=== PATIENT | female | born 1955 | race Caucasian/White ===

== ENCOUNTER 2017-02-17 14:42 | Inpatient (IN) | payer BC, OTHER ==
[~2017-02-17] VITALS: Ht 154.9 cm; Wt 65.3 kg
[2017-02-17] MEDS ORDERED: SENNA W/DOCUSATE (SENOKOT S) TABLET PO PRN (17:15)
[2017-02-17] MEDS ORDERED: ACETAMINOPHEN 325 MG TABLET/CAPLET (TYLENOL) PO PRN (17:15)
[2017-02-17] MEDS ORDERED: oxyCODONE 5 MG/5 ML ORAL SOLN (roxiCODONE) 5 ML UDC PO PRN (17:15)
--- OUTSIDE RECORDS SUMMARY | 2017-02-17 18:01 | XMS REPORT ---
Author Froy Amanda [facility] Address [address] [place], [place] [id number] Care Team Providers Care Stoker Erector Name Role Phone Froy Solroio PCP Unavailable Allergies and Adverse Reactions Name Reaction Notes Morphine Sulfate N & V Plan of Treatment Not available. Medications Active Name Start Date Estimated Completion Date SIG Comments atenolol lovastatin Name Start Date Expiration Date SIG Comments Fish Oil 1,000 mg oral capsule 06/20/2009 01/16/2010 take 4 capsules by oral route daily for 30 days ibuprofen 800 mg oral tablet 06/20/2009 12/17/2009 take 1 tablet by oral route 3 times a day for 30 days with food Problem List Description Status Onset Hyperlipidemia Active Hypertension Active Vital Signs Date Time BP-Sys(mm[Hg] BP-Yarely(mm[Hg]) HR(bpm) RR(rpm) Temp WT HT HC BMI BSA BMI Percentile O2 Sat(%) 01/21/2016 1:58:00 PM 146 mmHg 96 mmHg 80 bpm 20 rpm 95.4 F 183 lbs 60 in 35.74 kg/m2 1.87 m2 96 % 06/20/2009 4:14:00 PM 130 mmHg 80 mmHg 72 bpm 20 rpm 167 lbs Social History Name Description Comments Tobacco Never smoker History of Procedures Date Ordered Description Order Status 01/21/2016 12:00 AM COMPLETE CBC W/AUTO DIFF WBC Returned 01/21/2016 12:00 AM COMPREHEN METABOLIC PANEL Returned 01/21/2016 12:00 AM IMMUNOASSAY QUANT NOS NONAB Returned 01/21/2016 12:00 AM [facility] Crohn's Prognostic test Returned 01/21/2016 12:00 AM [facility] Crohn's Prognostic test Returned 01/21/2016 12:00 AM [facility] Crohn's Prognostic test Returned 01/21/2016 12:[address] ABD & PELV W/CONTRAST Returned 06/20/2009 12:00 AM OSTEOPATH MANJ 1-2 REGIONS Reviewed 06/20/2009 12:00 AM OSTEOPATH MANJ 1-2 REGIONS Reviewed 06/20/2009 12:00 AM LIPID PANEL Reviewed 08/21/2009 12:00 AM ROUTINE VENIPUNCTURE Reviewed 08/21/2009 12:00 AM LIPID PANEL Reviewed Results Summary Data and Description Results 06/21/2009 9:25 AM TRIGLYCERIDES 107.0 mg/dLCHOLESTEROL 248.0 mg/dLHDL 45.0 mg/ dLTOT CHOL/HDL 5.5 LDL (CALC) 182.0 mg/dL 01/21/2016 3:05 PM WBC 8.5 RBC 4.98 HGB 15.20 g/dLHCT 45.40 %MCV 91.0 fLMCH 30.50 pgMCHC 33.50 g/dLRDW SD 41 RDW CV 12.30 %MPV 8.70 fLPLT 315 NRBC# 0.00 NRBC% 0.0 %NEUT 70.10 %%LYMP 20.10 %%MONO 7.30 %%EOS 1.30 %%BASO 0.70 %#NEUT 5.98 #LYMP 1.71 #MONO 0.62 #EOS 0.11 #BASO 0.06 MANUAL DIFF NOT IND GLUCOSE 95.0 mg/dLSODIUM 141.0 mmol/LPOTASSIUM 4.10 mmol/LCHLORIDE 103.0 mmol/LCO2 27.0 mmol/LBUN 19.0 mg/dLCREATININE 0.70 mg/dLSGOT/AST 16.0 IU/LSGPT/ALT 19.0 IU/ LALK PHOS 58.0 IU/LTOTAL PROTEIN 7.20 g/dLALBUMIN 4.70 g/dLTOTAL BILI 1.50 mg/ dLCALCIUM 10.20 mg/dLAGE 60 GFR NonAA 85 GFR AA 103 eGFR >60 mL/min/1.73meGFR AA* >60 History Of Immunizations Not available. History of Past Illness Name Date of Onset Comments Hyperlipidemia Hyperlipidemia Jun 20 2009 4:16PM Low Back Pain Jun 20 2009 4:16PM Lumbar Somatic Dysfunction Jun 20 2009 4:16PM Thoracic Somatic Dysfunction Jun 20 2009 4:16PM Thoracic Somatic Dysfunction Jun 20 2009 9:48PM Lumbar Somatic Dysfunction Jun 20 2009 9:48PM Thoracic or Lumbosacral Radiculopathy Jun 20 2009 9:48PM Hyperlipidemia Jun 21 2009 9:21AM Hyperlipidemia Jun 21 2009 12:13PM Hypertension Rectal bleeding Jan 21 2016 1:59PM Diarrhea Jan 21 2016 1:59PM Abdominal pain Jan 21 2016 1:59PM Malaise and fatigue Jan 21 2016 1:59PM Other malaise Jan 21 2016 1:59PM Other fatigue Jan 21 2016 1:59PM Colon Cancer Screening Jan 21 2016 1:59PM Payers Insurance Name Company Name Plan Name Plan Number Policy Number Policy Group Number Start Date BCBS [facility] [id number] Friday, 2008 History of Encounters Visit Date Visit Type Provider 01/21/2016 Office visit Froy Solorio MD 06/20/2009 Office visit Ralph Sorto DO
--- OUTSIDE RECORDS SUMMARY | 2017-02-17 18:01 | XMS REPORT | CCD ---
Author Author ALFRED DAVID Unknown Address [address] [place] [address] Care Team Providers Care Senior Mortgage Loan Processor Name Role Phone KANE CAMPOS, YUE Lerma Attphys Allergies Allergy Code Allergy Type Reaction Status MORPHINE 7052 Drug allergy N/V Active Active Medications No Active Medications Problems Unknown or Not Available. Procedures Procedure Code Procedure Type Date Esophagogastroduodenoscopy, flexible, transoral; [place] [address] CPT 02/01/2016 Colorectal cancer screening; colonoscopy on individual not meeting criteri G0121 CPT 02/01/2016 PATHOLOGY ORDER [id number] SNOMED CT 02/01/2016 Results Unknown or Not Available. Function Status Unknown or Not Available. History of Immunizations Unknown or Not Available. Plan of Treatment Unknown or Not Available. Social History Smoking Status Code Start Date End Date Never smoker [id number] Vital Signs Vital Sign Value Unit Date/Time Recent/Initial? Weight Measured 180 [lb_av] 01/31/2016 14:42 Initial VS Height 61 [in_i] 01/31/2016 14:42 Initial VS BMI (Body Mass Index) 34.01 kg/m2 01/31/2016 14:42 Initial VS BSA (Body Surface Area) 1.87 m2 01/31/2016 14:42 Initial VS Function Status Unknown or Not Available. Goals Unknown or Not Available. ASSESSMENTS Unknown or Not Available. Health Concerns Section Unknown or Not Available.
--- OUTSIDE RECORDS SUMMARY | 2017-02-17 18:02 | XMS REPORT | Continuity of Care Document ---
Author Author [facility] Organization [facility] Address Unknown Phone Unavailable Allergies Medications Problems Procedures Results Encounters ACCT No. Visit Date/Time Discharge Status Pt. Type Provider Facility Loc./Unit Complaint [id number] 01/12/2017 09:37:04 01/12/2017 23: 59:59 CLS Outpatient Joaquin Elliott [id number] 12/30/2016 15:31:53 12/30/2016 23: 59:59 CLS Outpatient Orion Clarke [id number] 12/19/2016 16:39:39 12/19/2016 23: 59:59 CLS Outpatient Joaquin Elliott [id number] 02/11/2016 14:40:38 02/11/2016 23: 59:59 CLS Outpatient Froy Solorio [id number] 02/06/2016 13:30:37 02/06/2016 23: 59:59 [facility] Outpatient Froy Solorio [id number] 01/21/2016 14:47:17 01/21/2016 23: 59:59 [facility] Outpatient Froy Solorio
--- OUTSIDE RECORDS SUMMARY | 2017-02-17 18:02 | XMS REPORT ---
Author Froy Amanda [facility] Address [address] [place], [place] [address] Care Team Providers Care Face Hardener Name Role Phone Froy Solorio PCP Unavailable Allergies and Adverse Reactions Name Reaction Notes Morphine Sulfate N & V Plan of Treatment Not available. Medications Active Name Start Date Estimated Completion Date SIG Comments atenolol lovastatin dicyclomine 10 mg oral capsule 02/11/2016 03/12/2016 take 1 capsule by oral route 4 times a day (before meals and at bedtime) for 15 days Name Start Date Expiration Date SIG Comments [...] Colon Cancer Screening Jan 21 2016 1:59PM Acquired diverticulosis of colon Feb 11 2016 2:24PM Chronic hypertrophic gastritis Feb 11 2016 2:24PM Internal hemorrhoid Feb 11 2016 2:24PM Irritable bowel syndrome Feb 11 2016 2:24PM Payers Insurance Name Company Name Plan Name Plan Number Policy Number Policy Group Number [facility] Date [id number] Friday, 2008 History of Encounters Visit Date Visit Type Provider 02/11/2016 Office visit Froy Solorio MD 02/01/2016 [facility] Froy Solorio MD 01/21/2016 Office visit Froy Solorio MD 06/20/2009 Office visit Ralph Sorto DO
[2017-02-17 18:06] VITALS: BP 113/78
[2017-02-17] MEDS ORDERED: INFLUENZA TRIvalent 2017-2018 0.5 ML/45 MCG SYR IM ONE (19:00)
[2017-02-17] MEDS ORDERED: ATORVASTATIN 80 MG (LIPITOR) TABLET PO SCH (21:00)
[2017-02-17] MEDS ORDERED: LEVETIRACETAM 1,000 MG (KEPPRA) TABLET PO SCH (21:00)
--- NOTE | 2017-02-17 21:04 | HISTORY AND PHYSICAL ---
DATE OF SERVICE: 02/17/2017 CHIEF COMPLAINT: Difficulty with walking. HISTORY OF PRESENT ILLNESS: The patient is a 61-year-old female who had been independent and working, living with her spouse in [place], [place], who had problems with her balance beginning in late October of this year.She had recently been using a walker prior to surgery due to impaired balance. She experienced a fall on 11/28/2016 and was admitted to an outside facility at that time for altered medical status. She was hospitalized for 2 weeks for encephalitis for which an etiology was never found, which was presumed to be viral. She was discharged to inpatient rehab for continued right-sided weakness and was at that time cognitively intact. The day prior to discharge from inpatient rehabilitation unit, she experienced a fall and was found to be acutely confused, transferred to [facility] where she became febrile and remained confused. She subsequently was discharged to [facility] in [place], [place], and was eventually discharged to home with orders for outpatient therapy. She had another fall at home and became acutely confused. Speech was impaired. She was evaluated in the emergency room. CT demonstrated left temporal lobe edema with midline shift. She was transferred to [facility] on the evening of 01/29/2017 for further evaluation and treatment. Upon further evaluation there, she was found to have a glioblastoma multiforme and she underwent craniotomy for tumor resection on 02/03/2017. The patient had a video swallow study on 02/09/2017, demonstrating mild amount of dysphagia. Full liquid diet with nectar thickened liquids was initiated. Neurosurgery recommended nocturnal feeds to meet 100% of nutritional needs. She has a PEG tube in place. Currently, she complains of weakness in her legs and is dependent for transfers. She does have volitional movement, however, in all 4 limbs and cognitively appears grossly intact. She is able to follow simple commands and carry on a simple conversation. Her speech is articulate. She presents to the unit for ongoing therapy at [facility]. The oncologists from [facility] discussed treatment option as a plan with oncologists at [facility] in [place]. It is believed that the patient will require radiation treatment and Dr. Varela, Radiation Oncology, has been consulted. PAST MEDICAL HISTORY: Hypertension, hyperlipidemia, GERD without esophagitis, chronic constipation, encephalitis of unknown etiology, presumed to be viral, vitamin B12 deficiency, vitamin D deficiency. PAST SURGICAL HISTORY: Craniotomy as per above, hysterectomy. ALLERGIES: MORPHINE. FAMILY HISTORY: Noncontributory. 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 REVIEW OF SYSTEMS: Ten-point review of systems significant for swallow disorder and weakness in her legs, difficulty with her balance. MEDICATIONS: Vitamin D2 50,000 units p.o. every Thursday, amlodipine 5 mg p.o. daily, atenolol 50 mg p.o. daily, Pepcid 20 mg p.o. daily instead of Zantac, Rocephin 1 g tomorrow, then discontinue IV, Protonix 40 mg p.o. daily, vitamin B12 50,000 mcg sublingual under tongue, subcutaneous heparin 5000 units q.8 hours for DVT prophylaxis, Decadron 2 mg p.o. b.i.d., Keppra 1000 mg p.o. b.i.d., Lipitor 80 mg p.o. at bedtime, oxycodone 5 mg p.o. q.4 hours p.r.n. severe pain, Senokot-S 1 tablet p.o. b.i.d. p.r.n. constipation, Tylenol 650 mg p.o. q.4 hours p.r.n. mild pain. 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 PHYSICAL EXAMINATION: GENERAL: Significant for a pleasant female, appearing her stated age, alert and oriented, in no acute distress. VITAL SIGNS: Pulse of 78, respirations 18, blood pressure 113/78, O2 sat 96%. HEENT: Vision, speech, hearing grossly intact. No oral lesions noted. She is on a modified diet for dysphagia. Her craniotomy incision site is healing well, no drainage noted. NECK: Supple, without mass. HEART: Regular rhythm. LUNGS: Clear. ABDOMEN: Soft, nontender. Bowel sounds present. EXTREMITIES: No lower leg edema, no calf tenderness. MUSCULOSKELETAL: The patient has functional active range of motion in all 4 extremities. NEUROLOGIC: She has 3/5 strength RUE and 3+/5 strength LUE. Sensation is grossly intact to touch. Cognition appears grossly intact.She has generalized weakness in both lower limbs IMPRESSION: 1. Ambulatory dysfunction secondary to glioblastoma multiforme left temporal lobe, status post craniotomy for tumor resection on 02/03/2017 at [facility].associated with left sided weakness 2. Hypertension, controlled with medication. 3. Dysphagia, on modified diet. 4. History of encephalitis. 5. Hyperlipidemia. 6. Gastroesophageal reflux disease, on medication. 7. Chronic constipation, on medication. 8. Vitamin B12 deficiency, on medication. 9. Vitamin D deficiency, on supplement. 10. Seizure prophylaxis, on Keppra. 11. Deep venous thrombosis prophylaxis, on heparin subcutaneously. PLAN: The patient will have a comprehensive program of inpatient rehabilitation with goal of maximizing level of functional independence prior to discharge home with spouse. The patient will have PT, OT 90 minutes per day each discipline, 5 days a week for gait strengthening, conditioning, balance, ADLs, any patient family caregiver training, nurse and adaptive equipment and training as necessary. Therapy with PT, OT to be less when the patient being seen by speech therapy 5 days a week for 30 to 45 minutes per day for cognition, speech and particularly swallow disorder for 2 to 3 weeks. Rehabilitation nursing to assist with bowel, bladder, skin, wound care, medication administration, pain management, tube feed administration. Continue with modified diet and tube feeds at night. Case discussed with staff nursing care. No handoff was provided to me by physician. I assume they discussed case with Dr. Varela, our radiation oncologist. Consult Dr. Coombs to assist with postop medical management as this patient is home out of town. Her PCP is Dr. Sorto in [place], [place]. Check labs in a.m. Therapy with cardiac, fall and seizure precautions.Consult Dr Jeffery Rad oncology for follow-up postop care DIET: Mechanically altered, thickened liquids. CODE STATUS: [facility] indicates the patient is no CPR, but may intubate in case of respiratory failure. ESTIMATED LENGTH OF STAY: Three weeks. PROGNOSIS: Rehab prognosis appears good for goals of discharging home with spouse, modified independent to supervision for ADLs and mobility skills. Long-term prognosis appears somewhat guarded. I am sure that physicians and radiation oncologist here will follow up regarding that with the patient and spouse. Job ID: [id number] DocumentID: [id number] Dictated Date: 02/17/2017 19:11:01 Geomagnetician Date: 02/17/2017 21:03:29 Dictated By: JULIANA AGUIAR MD MTDD
[2017-02-17] MEDS: DEXAMETHASONE 4 MG TAB (DECADRON) PO SCH (21:56)
[2017-02-18 05:47] LABS: BASOPHILS % (AUTO) 0 % (0-10); EOSINOPHILS % (AUTO) 0 % (0-10); LYMPHOCYTES # (AUTO) 0.8 X 10^3 (1.0-4.0); LYMPHOCYTES % (AUTO) 7 % (12-44); MEAN CORPUSCULAR HEMOGLOBIN 33 PG (25-34); MEAN CORPUSCULAR HGB CONC 34 G/DL (32-36); MEAN CORPUSCULAR VOLUME 98 FL (80-99); MEAN PLATELET VOLUME 9.1 FL (7.4-10.4); MONOCYTES # (AUTO) 0.4 X 10^3 (0.0-1.0); MONOCYTES % (AUTO) 3 % (0-12); NEUTROPHILS # (AUTO) 10.1 X 10^3 (1.8-7.8); NEUTROPHILS % (AUTO) 90 % (42-75); PLATELET COUNT 259 10^3/uL (130-400); RED CELL DISTRIBUTION WIDTH 14.3 % (10.0-14.5); WHITE BLOOD COUNT 11.2 10^3/uL (4.3-11.0)
[2017-02-18 06:14] LABS: ALANINE AMINOTRANSFERASE 78 U/L (0-55); ALBUMIN 3.7 GM/DL (3.2-4.5); ANION GAP 13 MMOL/L (5-14); ASPARTATE AMINO TRANSFERASE 21 U/L (5-34); BILIRUBIN,TOTAL 1.8 MG/DL (0.1-1.0); BLOOD UREA NITROGEN 31 MG/DL (7-18); BUN/CREATININE RATIO 57; CALCIUM 9.4 MG/DL (8.5-10.1); CARBON DIOXIDE 23 MMOL/L (21-32); CHLORIDE 97 MMOL/L (98-107); CREATININE SERUM 0.54 MG/DL (0.60-1.30); GFR ESTIMATED > 60; GLUCOSE 186 MG/DL (70-105); POTASSIUM 3.8 MMOL/L (3.6-5.0); SODIUM 133 MMOL/L (135-145); TOTAL PROTEIN 6.2 GM/DL (6.4-8.2)
[2017-02-18] MEDS ORDERED: PANTOPRAZOLE 40 MG (PROTONIX) TAB PO SCH (07:00)
[2017-02-18] MEDS ORDERED: CYANOCOBALAMIN 500 MCG TAB (VITAMIN B-12) PO SCH (07:00)
[2017-02-18 08:00] VITALS: BP 106/70
[2017-02-18] MEDS ORDERED: cefTRIAXone INJECTION 1,000 MG in NS (IVPB) 50 ML IV ONE (08:00)
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
--- NOTE | 2017-02-18 08:32 | PM&R Post Admission Assessment ---
Post Admission Physician Asses The preadmission screen agrees with the post admission assessment that the patient is a good candidate for inpatient rehabilitation. The patient will have a comprehensive program of inpatient rehabilitation with a goal of maximizing level of functional independence prior to discharge home with spouse. The patient will have PT/OT ninety minutes per day, each discipline, five days a week for gait, strengthening, conditioning, balance, ADLs, any patient/family/caregiver training as necessary. Speech therapy to do cognitive, speech and swallow assessment and treat as indicated 5 times a week for 30-45 monutes a day for 2 weeks. Rehabilitation nursing to assist with bowel , bladder, skin, wound care, medication administration, pain management. Confidential Secretary to assist with discharge planning, community reentry. SCD's for DVT prophylaxis. She appears to be well motivated to participate in three hours of therapy a day. She should be able to tolerate three hours of therapy a day from a medical and surgical standpoint. She should benefit from the three hours of therapy a day. She has a reasonable discharge plan, reasonable discharge rehabilitation goals and a supportive family. She has various comorbidities that need to be closely monitored with medications and treatments adjusted on a daily basis as needed. These include: HTN GERD Seizure prophylaxis Chronic constipation Barriers to discharge for this patient who had been independent prior to this are for her to be modified independent to supervision for ADLs and mobility skills prior to discharge home with spouse, so as to lessen the burden of the caregivers. Risks for this patient include: 1. Fall 2. Fracture 3. DVT 4. Pulmonary embolism 5. Wound infection 6. Skin breakdown 7. Contractures 8. Poorly controlled pain 9. Urinary retention 10. UTI 11. Respiratory infection 12. Aspiration 13. Seizures 14. Poorly controlled HTN 15. Recurrent tumor 16. Recurrent encephalitis Estimated Length of Stay: 21 days Prognosis: Rehab prognosis appears good ( Short-term) for goal of discharge home with spouse modified independent to supervision for ADLs and mobility skills.The p[atient is see Radiation Oncologist while here for f/u treatment- Will follow-up re that. JULIANA AGUIAR MD Feb 18, 2017 08:32
[2017-02-18] MEDS ORDERED: FAMOTIDINE 20 MG (PEPCID) TABLET PO SCH (09:00)
[2017-02-18] MEDS ORDERED: amLODIPine 5 MG (NORVASC) TAB PO SCH (09:00)
[2017-02-18] MEDS ORDERED: ATENOLOL 50 MG (TENORMIN) TAB PO SCH (09:00)
[2017-02-18] MEDS: DEXAMETHASONE 4 MG TAB (DECADRON) PO SCH (09:13)
[2017-02-18] MEDS ORDERED: LIDOCAINE 1% INJ 20 ML (XYLOCAINE) VIAL INJ NR (10:00)
[2017-02-18] MEDS ORDERED: cefTRIAXone 1 GM (ROCEPHIN) VIAL IM NR (10:00)
[2017-02-18] MEDS: LEVETIRACETAM 500 MG/ 5 ML UDC ORAL SOLN (KEPPRA) PEG SCH ×2 (10:08→20:31)
--- NOTE | 2017-02-18 10:26 | Physical Therapy Evaluation ---
PT Evaluation-General Medical Diagnosis Admission Date Feb 17, 2017 at 17:59 Medical Diagnosis: Craniomoty, Bilateral weakness, Falls Onset Date: Feb 03, 2017 Therapy Diagnosis Therapy Diagnosis: bilateral weakness, impaired mobility, endurance, balance Height/Weight Height (Feet): 5 Height (Inches): 1.00 Weight (Pounds): 142 Weight (Ounces): 8.0 Precautions Precautions/Isolations: Aspiration, Fall Prevention, Standard Precautions Weight Bear Status Right Lower Extremity: Right Weight Bearing/Tolerated Left Lower Extremity: Left Weight Bearing/Tolerated Referral Physician: West Reason for Referral: Evaluation/Treatment Medical History Pertinent Medical History: GERD, HTN Additional Medical History hyperlipidemia, chronic constipation, Vitamin deficiency, encephalitis Reviewed History: Yes Social History Home: Multilevel Current Living Status: Spouse Entry Into Home: Stairs Without Railing PT Steps Into Home: 3 Prior/Core FIM Prior Level of Function Functional [place] Measure 0=Not Assessed/NA 4=Minimal Assistance 1=Total Assistance 5=Supervision or Setup 2=Maximal Assistance 6=Modified [place] 3=Moderate Assistance 7=Complete [place] Bed Mobility: 7 Transfers (B,C,W/C) (FIM): 7 Gait: 6 Locomotion: 6 Patient ambulates with FWW before craniotomy due to balance issues PT Evaluation-Current Subjective Patient is alert in bed upon PT entering the room. She states that her legs have been feeling weak, but she is very responsive and willing to agree to PT. Patient is able to communicate with PT and perform tasks asked of her. She expresses concern over falling and feeling unsteady. She frequently apologizes if she cannot perform something she or PT asks her to perform. Pain Numeric Pain Scale: 0-No Pain Location: No Pain Reported Comment: States her head starts to hurt sometime during the day Pt/Family Goals Patient wishes to improve strength and improve stability while returning to home. Objective Patient Orientation: Person, Place, Time, Situation ROM/Strength ROM Upper Extremities PROM WNL ROM Lower Extremities PROM WNL Strength Upper Extremities Bilateral weakness noted. Patient appears to have greater strength grossly on L side. Strenght Lower Extremities Bilateral weakness. Patient is able to bear weight through both extremities as well as flex hip and knee against gravity while standing. Integumentary/Posture Integumentary intact; tube in superior abdominal cavity Bowel Incontinence: Yes Bladder Incontinence: Yes Posture Sitting posture deviates to right side due to weakness on that side. Neuromuscular (Tone, Coordination, Reflexes) Decreased tone on the right LE and impaired coordination. Sensory Vision: Functional Hearing: Functional Sensation Up. Extremities NA Sensation Lower Extremities NA Transfers Functional [place] Measure 0=Not Assessed/NA 4=Minimal Assistance 1=Total Assistance 5=Supervision or Setup 2=Maximal Assistance 6=Modified [place] 3=Moderate Assistance 7=Complete IndependenceIRFPAI Quality Coding Scale 6 Independent with activity with or without an assistive device 5 Patient requires set up or clean up by helper. Patient completes activity by themselves 4 Supervision or touching assist (CGA). [place] provide cues , steadying assist 3 The helper provides less than half the effort to complete the activity 2 The helper provides more than half the effort to complete the activity 1 Dependent. The helper does all the effort to complete an activity 7 Patient refused to complete or attempt activity 9 The patient did not perform the activity before the current illness or injury 88 Not attempted due to Medical conditions or safety concerns Transfers (B, C, W/C) (FIM): 2 Scootin Rollin Roll Left to Right (QC): 4 Supine to/from Sit: 4 Sit to/from Stand: 2 bed t/f WC(FIM only if WC use): 2 Sit to Lying (QC): 3 Lying to Sitting/Side of Bed(Q: 3 Sit to Stand (QC): 2 Chair/Cqo-qc-Gydbi Xfer(QC): 2 Car Transfer (QC): 88 Gait Does the Patient Walk?: No and Walking Goal IS indicated Comments/Gait Description Patient stood in the parallel bars and attempted to take some steps but her knees gave out and needed assist from therapist to keep from falling. Wheelchair Training Does the Pt Use a Wheelchair?: Yes Wheelchair (FIM): 2 Wheelchair Distance (FIM): 1=714-31 ft Distance: 50' Wheelchair Level of Assist: 3 Wheel 50 ft with 2 turns (QC): 2 Type of Wheelchair: Manual Patient is able to slowly ambulate the W/C with LEs and L UE. W/C deviates right due to weakness of R UE. Patient is unable to perform turns on this date. Stairs If not tested on admit;explain Patient is unable to ambulate yet. Balance Sitting Static: Fair Sitting Dynamic: Poor Standing Static: Poor Standing Dynamic: Poor Treatment PT performed sit to stand transfers as well as attempted walking and weight shifts in parallel bars. Assessment/Needs Patient is suffering from bilateral weakness due to recent craniotomy and inactivity. Patient seems motivated to improve and is very willing to adhere to PT. PT will perform WB activities, education, and therapeutic exercise in order to promote musculare strength and endurance. Rehab Potential: Fair PT Short Term Goals Short Term Goals Time Frame: Feb 25, 2017 Transfers (B,C,W/C) (FIM): 3 Gait (FIM): 1 Gait Distance Comment: 10' Gait Level of Assist: 3 Gait Assistive Device: Parallel Bars Wheelchair (FIM): 2 Wheelchair Distance: 50' Wheelchair Level of Assist: 4 PT Photogrammetrist Goals Residential Goals PT Photogrammetrist Goals Time Frame: Mar 11, 2017 Transfers (B,C,W/C) (FIM): 4 Sit to Lying (QC): 4 Lying-Sitting on Side/Bed(QC): 4 Sit to Stand (QC): 3 Rollin Roll Left to Right (QC): 4 Chair/Lan-fn-Jyxmz Xfer(QC): 3 Car Transfer (QC): 3 Does the Patient Walk: No and Walking Goal IS indicated Gait (FIM): 1 Distance: 20' Walk 10 feet (QC): 3 Gait Level of Assist: 4 Gait Assistive Device: FWW Does the Pt use WC or Scooter?: Yes Wheelchair (FIM): 4 Distance: 150' Wheelchair Level of Assist: 4 Wheel 50 feet with 2 turns (QC: 3 Stairs (FIM): 1 # of Steps: 1 1 Step (curb) (QC): 3 4 Steps (QC): 88 12 Steps (QC): 88 Stairs Level Of Assist: 4 Picking up an Object (QC): 88 PT Plan Problem List Problem List: Activity Tolerance, Functional Strength, Safety, Balance, Gait, Transfer, Bed Mobility, ROM Treatment/Plan Treatment Plan: Continue Plan of Care Treatment Plan: Bed Mobility, Concurrent Therapy, Education, Functional Activity Alicia, Functional Strength, Group Therapy, Gait, Safety, Therapeutic Exercise, Transfers Treatment Duration: Mar 11, 2017 Frequency: At least 5 of 7 days/Wk (IRF) Estimated Hrs Per Day: 1.5 hours per day Patient and/or Family Agrees t: Yes Safety Risks/Education Patient Education: Gait Training, Transfer Techniques, Reviewed Precautions, Correct Positioning, W/C Management, Safety Issues Teaching Recipient: Patient Teaching Methods: Demonstration, Discussion Response to Teaching: Verbalize Understanding, Return Demonstration, Reinforcement Needed Discharge Recommendations Plan Patient will perform bed mobility and transfer training, balance and endurance training, functional strengthening, stair training, gait training, and education , to improve functional mobility and independence at home. Therapy D/C Recommendations: Home w/ Family Support, Alf (TCU/NH) Equpiment Recommendations-D/C: Front Wheeled Walker, Manual Wheelchair Time/GCodes Time In: 901 Time Out: 1001 Total Billed Treatment Time: 60 Total Billed Treatment 1 visit EVHigh 30 min [facility] 10 mi FA 20 min NGUYEN HUITRON PT Feb 18, 2017 10:26
[2017-02-18] MEDS ORDERED: PANT40TA3 PO (11:24)
[2017-02-18] MEDS ORDERED: ERGO50006 PO (11:24)
[2017-02-18] MEDS ORDERED: CYAN5000 SL (11:24)
[2017-02-18] MEDS ORDERED: ACET325T38 PO (11:24)
[2017-02-18] MEDS ORDERED: RANI150T11 PO (11:24)
[2017-02-18] MEDS ORDERED: ATEN50TA PO (11:24)
[2017-02-18] MEDS ORDERED: ATOR80TA76 PO (11:24)
[2017-02-18] MEDS ORDERED: AMLO5TAB2 PO (11:24)
--- NOTE | 2017-02-18 13:18 | Occupational Therapy Eval ---
OT Evaluation-General/PLF Medical Diagnosis Admission Date Feb 17, 2017 at 17:59 Medical Diagnosis: Craniomoty, Bilateral weakness, Falls Onset Date: Feb 03, 2017 Therapy Diagnosis Therapy Diagnosis: Decreased ADL skills Height/Weight Height (Feet): 5 Height (Inches): 1.00 Weight (Pounds): 142 Weight (Ounces): 8.0 Precautions Precautions/Isolations: Aspiration, Fall Prevention, Standard Precautions Safety Interventions: Bed Exit Alarm Weight Bear Status Weight Bearing Restriction: Weight Bearing/Tolerated Referral Physician: West Referral Reason: Activity Tolerance, Self Care, Evaluation/Treatment, Strengthening/ROM Medical History Pertinent Medical History: GERD, HTN Additional Medical History Vit B12 deficiency, Vit D deficiency Current History Pt. began having falls. Required several hospital stays. Glioblastoma multiforme found. Pt. underwent a craniotomy for tumor resection 02-03-17. Pt found to have encephalitis. Reviewed History: Yes Social History Home: Multilevel Current Living Status: Spouse Entry Into Home: Stairs Without Railing Steps Into Home: 3 ADL-Prior Level of Function ADL PLOF Comments Pt. was independent with daily tasks and basic self care skills. Pt. was working but states that she had to retire in July. DME/Equipment: Bath Chair, Tub/Shower DME/Equipment Comments Pt. states that she has a wheelchair and a walker. 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 OT Current Status Subjective Pt. does not report pain but reports that she is very tired. Appearance Pt. up in wheelchair. Agrees to work with OT. Mental Status/Objective Patient Orientation: Person Attachments: PEG Tube Current Glasses/Contacts: Yes Hand Dominance: Right Upper Extremity ROM WFL bilateral UE Upper Extremity Strength Right UE- 3/5 Left UE- 3+/5 throughout ADL-Treatment Functional [place] Measure 0=Not Assessed/NA 4=Minimal Assistance 1=Total Assistance 5=Supervision or Setup 2=Maximal Assistance 6=Modified [place] 3=Moderate Assistance 7=Complete IndependenceIRFPAI Quality Coding Scale 6 Independent with activity with or without an assistive device 5 Patient requires set up or clean up by helper. Patient completes activity by themselves 4 Supervision or touching assist (CGA). [place] provide cues , steadying assist 3 The helper provides less than half the effort to complete the activity 2 The helper provides more than half the effort to complete the activity 1 Dependent. The helper does all the effort to complete an activity 7 Patient refused to complete or attempt activity 9 The patient did not perform the activity before the current illness or injury 88 Not attempted due to Medical conditions or safety concerns Grooming (FIM): 4 (Pt. is able to brush teeth with SBA, but required mod assist to brush hair due to stitches.) Oral Hygiene (QC): 5 Bathing (FIM): 3 (Pt. is able to wash UE and chest, but requires cues to do this thoroughly. Max assist to wash sanjuana area and LE.) Shower/Bathe Self (QC): 2 Lower Body Dressing (FIM): 1 (Dependent to don shorts, brief, and socks. No other street clothing available.) Lower Body Dressing (QC): 1 On/Off Footwear (QC): 1 Transfers (B, C, W/C) (FIM): 2 (Mod assist to stand. Pt. fatigues easily. Max assist to transfer to bed. Pt. was max assist to lay down and position self.) Other Treatments After pt. was in bed, she participated in series of problem solving and naming activities. Pt. did relatively well with these tasks. Able to group and name items appropriately, and to problem solve what to do in certain situations. All needs met in room. Education OT Patient Education: Correct positioning, Modified ADL techniques, Progress toward Goal/Update tx plan, Purpose of tx/functional activities, Reviewed precautions, Rehab process, Safety issues, Transfer techniques, Use of adapted equipment Teaching Recipient: Patient Teaching Methods: Demonstration, Discussion Response to Teaching: Verbalize Understanding, Return Demonstration OT Short Term Goals Short Term Goals Time Frame: Mar 04, 2017 Eating(FIM): 5 Grooming(FIM): 5 Bathing(FIM): 4 Upper Body Dressing(FIM): 5 Lower Body Dressing(FIM): 4 Toileting(FIM): 4 Transfers (B,C,W/C) (FIM): 4 Toilet/Commode Transfer(FIM): 4 Shower Transfer(FIM): 3 Additional Short Term Goals: 1-Demonstrate ADL Tasks, 2-Verbalize Understanding , 3-ImproveStrength/Alicia 1=Demonstrate adherence to instructed precautions during ADL tasks. 2=Patient will verbalize/demonstrate understanding of assistive devices/ modifications for ADL. 3=Patient will improve strength/tolerance for activity to enable patient to perform ADL's. OT Fdc Goals Fdc Goals Time Frame: Mar 18, 2017 Eating (FIM): 6 Eating (QC): 6 Groomin Oral Hygiene (QC): 5 Bathing(FIM): 4 Shower/Bathe Self (QC): 4 Upper Body Dressing(FIM): 5 Upper Body Dressing (QC): 5 Lower Body Dressing(FIM): 5 Lower Body Dressing (QC): 5 On/Off Footwear (QC): 5 Toileting(FIM): 5 Toileting Hygiene (QC): 5 Transfers (B,C,W/C) (FIM): 5 Toilet/Commode Transfer(FIM): 5 Toilet/Commode Transfer (QC): 5 Shower Transfer(FIM): 4 Additional Goals: 1-Demonstrate ADL Tasks, 2-Verbalize Understanding, 3- ImproveStrength/Alicia 1=Demonstrate adherence to instructed precautions during ADL tasks. 2=Patient will verbalize/demonstrate understanding of assistive devices/ modifications for ADL. 3=Patient will improve strength/tolerance for activity to enable patient to perform ADL's. OT Education/Plan Problem List/Assessment Assessment: Decreased Activ Tolerance, Decreased Safety Aware, Decreased UE Strength, Dependent Transfers, Impaired Bed Mobility, Impaired Cognition, Impaired Coordination, Impaired Funct Balance, Impaired I ADL's, Impaired Self- Care Skills, Restricted Funct UE ROM Discharge Recommendations Plan/Recommendations: Continue POC Therapy D/C Recommendations: 24 hr Supervision Comment unsure of equipment needs or discharge destination at this time. Treatment Plan/Plan of Care Treatment,Training & Education: Yes Patient would benefit from OT for education, treatment and training to promote independence in ADL's, mobility, safety and/or upper extremity function for ADL' s. Plan of Care: ADL Retraining, Caregiver Training, Cognitive Retraining, Functional Mobility, Group Exercise/Act as Ind, UE Funct Exercise/Act Treatment Duration: Mar 18, 2017 Frequency: At least 5 of 7 days/Wk (IRF) Estimated Hrs Per Day: 1.5 hours per day Agreement: Yes Rehab Potential: Fair Time/GCodes Start Time: 10:00 Stop Time: 11:30 Total Time Billed (hr/min): 90 Billed Treatment Time 1, EVHigh x 15minutes, ADL x 45minutes, FA x 30minutes LIGIA CERRATO OT Feb 18, 2017 13:18
--- NOTE | 2017-02-18 14:01 | Physical Therapy Daily Note ---
PT Daily Note-Current Subjective Patient states that she is tired this p.m. with a headache that has continued to get worse throughout the day. She states she just needs to rest. She agrees to exercises in bed, but shates she cannot stand up this afternoon. Pain Numeric Pain Scale: 0-No Pain Location: No Pain Reported Comment: reports a headache but no further pain Appearance Patient appears healthy. She is left post tx supine in bed with call light in reach. Mental Status Patient Orientation: Person, Place, Time, Situation Transfers Functional [place] Measure 0=Not Assessed/NA 4=Minimal Assistance 1=Total Assistance 5=Supervision or Setup 2=Maximal Assistance 6=Modified [place] 3=Moderate Assistance 7=Complete IndependenceIRFPAI Quality Coding Scale 6 Independent with activity with or without an assistive device 5 Patient requires set up or clean up by helper. Patient completes activity by themselves 4 Supervision or touching assist (CGA). [place] provide cues , steadying assist 3 The helper provides less than half the effort to complete the activity 2 The helper provides more than half the effort to complete the activity 1 Dependent. The helper does all the effort to complete an activity 7 Patient refused to complete or attempt activity 9 The patient did not perform the activity before the current illness or injury 88 Not attempted due to Medical conditions or safety concerns Transfers (B, C, W/C) (FIM): 4 Scootin Rollin Supine to/from Sit: 4 Patient is able to roll and scoot with CGA from PT. SHe requires slight assistance to rise to seated from lying in the bed. Weight Bearing Right Lower Extremity: Right Weight Bearing/Tolerated Left Lower Extremity: Left Weight Bearing/Tolerated PT Short Term Goals Short Term Goals Time Frame: Feb 25, 2017 Transfers (B,C,W/C) (FIM): 4 Gait (FIM): 1 Gait Distance Comment: 10' Gait Level of Assist: 3 Gait Assistive Device: Parallel Bars Wheelchair (FIM): 2 Wheelchair Distance: 50' Wheelchair Level of Assist: 4 PT Longterm Goals Sign Painter Goals PT Sign Painter Goals Time Frame: Mar 11, 2017 Transfers (B,C,W/C) (FIM): 4 Gait (FIM): 1 Distance: 20' Gait Level of Assist: 4 Gait Assistive Device: FWW Wheelchair (FIM): 4 Distance: 150' Wheelchair Level of Assist: 4 Stairs (FIM): 1 # of Steps: 1 Stairs Level Of Assist: 4 PT Plan Treatment/Plan Treatment Plan: Bed Mobility, Concurrent Therapy, Education, Functional Activity Alicia, Functional Strength, Group Therapy, Gait, Safety, Therapeutic Exercise, Transfers Treatment Duration: Mar 11, 2017 Frequency: At least 5 of 7 days/Wk (IRF) Estimated Hrs Per Day: 1.5 hours per day Patient and/or Family Agrees t: Yes NGUYEN HUITRON PT Feb 18, 2017 14:01
--- NOTE | 2017-02-18 14:08 | Physical Therapy Daily Note ---
PT Daily Note-Current Subjective Patient states that she is tired this p.m. with a headache that has continued to get worse throughout the day. She states she just needs to rest. She agrees to exercises in bed, but states she cannot stand up this afternoon. Pain Numeric Pain Scale: 0-No Pain Location: No Pain Reported Comment: reports a headache but no further pain Appearance Patient appears healthy. She is left post tx supine in bed with call light in reach. Mental Status Patient Orientation: Person, Place, Time, Situation Transfers Functional [place] Measure 0=Not Assessed/NA 4=Minimal Assistance 1=Total Assistance 5=Supervision or Setup 2=Maximal Assistance 6=Modified [place] 3=Moderate Assistance 7=Complete IndependenceIRFPAI Quality Coding Scale 6 Independent with activity with or without an assistive device 5 Patient requires set up or clean up by helper. Patient completes activity by themselves 4 Supervision or touching assist (CGA). [place] provide cues , steadying assist 3 The helper provides less than half the effort to complete the activity 2 The helper provides more than half the effort to complete the activity 1 Dependent. The helper does all the effort to complete an activity 7 Patient refused to complete or attempt activity 9 The patient did not perform the activity before the current illness or injury 88 Not attempted due to Medical conditions or safety concerns Transfers (B, C, W/C) (FIM): 4 Scootin Rollin Supine to/from Sit: 4 Patient is able to roll and scoot with CGA from PT. She requires slight assistance to rise to seated from lying in the bed. Weight Bearing Right Lower Extremity: Right Weight Bearing/Tolerated Left Lower Extremity: Left Weight Bearing/Tolerated Exercises Supine Ex: Ankle pumps, Heel Slides, Short Arc Quads, Resisted flex/ext, Straight leg raise (AAROM) Supine Reps: 15 Seated Therapy Exercises: Long arc quads, Hip flexion Seated Reps: 15 all exercises performed bilaterally Treatments PT performed therapeutic exercise and ROM to LE in bed. PT also worked on bed mobility. Assessment Current Status: Fair Progress Patient is tired and suffering from a headache and dizziness this p.m. She is still agreeable to some modes of therapeutic intervention as she knows she needs to improve strength in her LEs. PT will continue with WB activities, exercise, and education to improve patient weakness and immobility. PT Short Term Goals Short Term Goals Time Frame: Feb 25, 2017 Transfers (B,C,W/C) (FIM): 4 Gait (FIM): 1 Gait Distance Comment: 10' Gait Level of Assist: 3 Gait Assistive Device: Parallel Bars Wheelchair (FIM): 2 Wheelchair Distance: 50' Wheelchair Level of Assist: 4 PT Community Affairs Director Goals Community Affairs Director Goals PT Community Affairs Director Goals Time Frame: Mar 11, 2017 Transfers (B,C,W/C) (FIM): 4 Sit to Lying (QC): 4 Lying-Sitting on Side/Bed(QC): 4 Sit to Stand (QC): 3 Rollin Roll Left to Right (QC): 4 Chair/Mgh-pz-Tpxco Xfer(QC): 3 Car Transfer (QC): 3 Does the Patient Walk: No and Walking Goal IS indicated Gait (FIM): 1 Distance: 20' Walk 10 feet (QC): 3 Gait Level of Assist: 4 Gait Assistive Device: FWW Does the Pt use WC or Scooter?: Yes Wheelchair (FIM): 4 Distance: 150' Wheelchair Level of Assist: 4 Wheel 50 feet with 2 turns (QC: 3 Stairs (FIM): 1 # of Steps: 1 1 Step (curb) (QC): 3 4 Steps (QC): 88 12 Steps (QC): 88 Stairs Level Of Assist: 4 Picking up an Object (QC): 88 PT Plan Problem List Problem List: Activity Tolerance, Functional Strength, Safety, Balance, Gait, Transfer, Bed Mobility, ROM Treatment/Plan Treatment Plan: Continue Plan of Care Treatment Plan: Bed Mobility, Concurrent Therapy, Education, Functional Activity Alicia, Functional Strength, Group Therapy, Gait, Safety, Therapeutic Exercise, Transfers Treatment Duration: Mar 11, 2017 Frequency: At least 5 of 7 days/Wk (IRF) Estimated Hrs Per Day: 1.5 hours per day Patient and/or Family Agrees t: Yes Safety Risks/Education Patient Education: Transfer Techniques, Correct Positioning, Safety Issues Teaching Recipient: Patient Teaching Methods: Demonstration, Discussion Response to Teaching: Reinforcement Needed Time/GCodes Time In: 1316 Time Out: 1346 Total Billed Treatment Time: 30 Total Billed Treatment 1 visit FA x 10 min EX x 20 min NGUYEN HUITRON PT Feb 18, 2017 14:07
[2017-02-18 18:00] VITALS: BP 109/74
--- NOTE | 2017-02-18 18:30 | PM & R (SOAP) Progress Note ---
Subjective Time Seen by Provider: 08:10 Subjective/Events-last exam Patient was seen in her room this AM Patient min assist for transfers.Current labs reviewed Patient adjusting well to unit discussed case with staff Appreciate DR astudillo note.Dimas discussed with DR argenis Jeffery consulted for possible f/u RT s/p debulking GBM at [facility] Review of Systems Neurological: Weakness Objective Exam Last Set of Vital Signs Vital Signs Date Time Temp Pulse Resp B/P (MAP) Pulse Ox O2 Delivery O2 Flow Rate FiO2 02/18/17 08:20 Room Air 02/18/17 08:00 99.0 91 18 106/70 97 Capillary Refill : I&O Intake and Output 02/19/17 00:00 Intake Total 400 ml Balance 400 ml Intake Tube Feeding 400 ml # Voids 2 General: Alert, Oriented X3, Cooperative, No Acute Distress HEENT: PERRLA, EOMI, Mucous Memb Moist/Vale, Other (crani site with sutures inplace healing well) Neck: Supple, No JVD Lungs: Clear to Auscultation Heart: Regular Rate Abdomen: Normal Bowel Sounds, Soft, No Tenderness, Other (Peg in place) Extremities: No Edema Neuro: Other (weakness left > rt) Results Lab Laboratory Tests 02/18/17 05:25: White Blood Count 11.2H, Red Blood Count 3.90L, Hemoglobin 13.0, Hematocrit 38, Mean Corpuscular Volume 98, Mean Corpuscular Hemoglobin 33, Mean Corpuscular Hemoglobin Concent 34, Red Cell Distribution Width 14.3, Platelet Count 259, Mean Platelet Volume 9.1, Neutrophils (%) (Auto) 90H, Lymphocytes (%) (Auto) 7L , Monocytes (%) (Auto) 3, Eosinophils (%) (Auto) 0, Basophils (%) (Auto) 0, Neutrophils # (Auto) 10.1H, Lymphocytes # (Auto) 0.8L, Monocytes # (Auto) 0.4, Eosinophils # (Auto) 0.0, Basophils # (Auto) 0.0, Sodium Level 133L, Potassium Level 3.8, Chloride Level 97L, Carbon Dioxide Level 23, Anion Gap 13, Blood Urea Nitrogen 31H, Creatinine 0.54L, Estimat Glomerular Filtration Rate > 60, BUN/Creatinine Ratio 57, Glucose Level 186H, Calcium Level 9.4, Total Bilirubin 1.8H, Aspartate Amino Transf (AST/SGOT) 21, Alanine Aminotransferase (ALT/SGPT) 78H, Alkaline Phosphatase 60, Total Protein 6.2L, Albumin 3.7 Assessment/Plan Assessment s/p 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 aphasia and dysphagia with Tube feeds currently on hold and on modified consistency diet HTN controlled GERD on meds Chronic constipation on meds SZ prophylaxis on Keppra [place] taper DVT prophylaxis on Heparin SubCut Plan Continue PT/OT ST to see F/U with Radiation oncology Dr Jeffery re recs Team Conference held earlier today-see report for full functional update and POC and JULIANA CELESTIN MD Feb 18, 2017 18:30
[2017-02-18] MEDS: ATORVASTATIN 80 MG (LIPITOR) TABLET PEG SCH (20:30)
[2017-02-18] MEDS: DEXAMETHASONE 4 MG TAB (DECADRON) PEG SCH (20:31)
[2017-02-18] MEDS: oxyCODONE 5 MG/5 ML ORAL SOLN (roxiCODONE) 5 ML UDC PEG PRN (20:32)
[2017-02-19 06:15] VITALS: BP 106/70
[2017-02-19] MEDS: CYANOCOBALAMIN 500 MCG TAB (VITAMIN B-12) PEG SCH (06:29)
[2017-02-19] MEDS: PANTOPRAZOLE 2 MG/ML LIQUID 200 ML (PROTONIX) PEG SCH ×3 (06:29)
--- NOTE | 2017-02-19 07:58 | Progress Note (SOAP) ---
Subjective Time Seen by Provider: 07:55 Subjective/Events-last exam glioblastoma. Patient had issues last night. Patient feeling better today. Objective Exam Vital Signs Date Time Temp Pulse Resp B/P (MAP) Pulse Ox O2 Delivery O2 Flow Rate FiO2 02/19/17 06:15 97.7 67 20 106/70 96 Room Air 02/18/17 20:15 Room Air 02/18/17 18:00 99.5 72 18 109/74 97 Room Air 02/18/17 08:20 Room Air 02/18/17 08:00 99.0 91 18 106/70 97 Room Air Capillary Refill : General Appearance: No Apparent Distress, WD/WN HEENT: Normal ENT Inspection Neck: Normal Inspection Respiratory: No Accessory Muscle Use, No Respiratory Distress Cardiovascular: Regular Rate, Rhythm Assessment/Plan Assessment/Plan Assess & Plan/Chief Complaint glioblastoma. Hypertension. Hyperlipidemia. GERD. Viral encephalitis. Chronic constipation. Vitamin B12 deficiency. Vitamin D deficiency. . 02/19/17. Glioblastoma. Hypertension. Hyperlipidemia. GERD Vitamin B12 deficiency. Vitamin D deficiency. Patient feeling better this morning Clinical Quality Measures DVT/VTE Risk/Contraindication: Risk Factor Score Per Nursin RFS Level Per Nursing on Admit: 4+=Very High GANESH HEADLEY DO Feb 19, 2017 07:58
--- NOTE | 2017-02-19 08:22 | PM & R (SOAP) Progress Note ---
Subjective Time Seen by Provider: 08:05 Subjective/Events-last exam Patient was seen in her room this AM Patient has concern re f/u with treatment postop for GBM Reassured patient Consult placed to DR Jeffery radiation oncologist Patient Min assist for transfers.Appreciate DR Garcia note Objective Exam Last Set of Vital Signs Vital Signs Date Time Temp Pulse Resp B/P (MAP) Pulse Ox O2 Delivery O2 Flow Rate FiO2 02/19/17 06:15 97.7 67 20 106/70 96 Room Air Capillary Refill : I&O Intake and Output 02/20/17 00:00 Intake Total 250 ml Output Total 600 ml Balance -350 ml Intake Oral 150 ml Tube Feeding 100 ml Output Urine Total 600 ml General: Alert, Oriented X3, Cooperative, No Acute Distress HEENT: PERRLA, EOMI, Mucous Memb Moist/[place], Other (crani site with sutures inplace healing well) Neck: Supple, No JVD Lungs: Clear to Auscultation Heart: Regular Rate Abdomen: Normal Bowel Sounds, Soft, No Tenderness, Other (Peg in place) Extremities: No Edema Neuro: Other (weakness left > rt) Results Lab Laboratory Tests 02/18/17 05:25: White Blood Count 11.2H, Red Blood Count 3.90L, Hemoglobin 13.0, Hematocrit 38, Mean Corpuscular Volume 98, Mean Corpuscular Hemoglobin 33, Mean Corpuscular Hemoglobin Concent 34, Red Cell Distribution Width 14.3, Platelet Count 259, Mean Platelet Volume 9.1, Neutrophils (%) (Auto) 90H, Lymphocytes (%) (Auto) 7L , Monocytes (%) (Auto) 3, Eosinophils (%) (Auto) 0, Basophils (%) (Auto) 0, Neutrophils # (Auto) 10.1H, Lymphocytes # (Auto) 0.8L, Monocytes # (Auto) 0.4, Eosinophils # (Auto) 0.0, Basophils # (Auto) 0.0, Sodium Level 133L, Potassium Level 3.8, Chloride Level 97L, Carbon Dioxide Level 23, Anion Gap 13, Blood Urea Nitrogen 31H, Creatinine 0.54L, Estimat Glomerular Filtration Rate > 60, BUN/Creatinine Ratio 57, Glucose Level 186H, Calcium Level 9.4, Total Bilirubin 1.8H, Aspartate Amino Transf (AST/SGOT) 21, Alanine Aminotransferase (ALT/SGPT) 78H, Alkaline Phosphatase 60, Total Protein 6.2L, Albumin 3.7 Assessment/Plan Assessment 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
[2017-02-19] MEDS: LEVETIRACETAM 500 MG/ 5 ML UDC ORAL SOLN (KEPPRA) PEG SCH ×2 (09:21→20:27)
[2017-02-19] MEDS: FAMOTIDINE 20 MG (PEPCID) TABLET PEG SCH (09:21)
[2017-02-19] MEDS: ATENOLOL 50 MG (TENORMIN) TAB PEG SCH (09:21)
[2017-02-19] MEDS: DEXAMETHASONE 4 MG TAB (DECADRON) PEG SCH ×2 (09:22→20:27)
[2017-02-19] MEDS: amLODIPine 5 MG (NORVASC) TAB PEG SCH (09:22)
--- NOTE | 2017-02-19 12:03 | Physical Therapy Daily Note ---
PT Daily Note-Current Subjective Pt is sitting in [facility] eating lunch upon arrival. Pt reports feeling tired and wants to return to bed to rest. Pt says, "I think my company this morning wore me out". Pain Numeric Pain Scale: 5-Moderate Pain Location: Anterior Location Body Site: Head Pain Description: Ache Mental Status Patient Orientation: Person, Place Attachments: PEG Tube Transfers Functional [place] Measure 0=Not Assessed/NA 4=Minimal Assistance 1=Total Assistance 5=Supervision or Setup 2=Maximal Assistance 6=Modified [place] 3=Moderate Assistance 7=Complete IndependenceIRFPAI Quality Coding Scale 6 Independent with activity with or without an assistive device 5 Patient requires set up or clean up by helper. Patient completes activity by themselves 4 Supervision or touching assist (CGA). [place] provide cues , steadying assist 3 The helper provides less than half the effort to complete the activity 2 The helper provides more than half the effort to complete the activity 1 Dependent. The helper does all the effort to complete an activity 7 Patient refused to complete or attempt activity 9 The patient did not perform the activity before the current illness or injury 88 Not attempted due to Medical conditions or safety concerns Scootin Supine to/from Sit: 4 Sit to/from Stand: 3 Sit to Lying (QC): 4 Sit to Stand (QC): 3 Chair/Heu-zz-Ccjtz Xfer(QC): 3 Bed to/from Chair: 3 Weight Bearing Right Lower Extremity: Right Weight Bearing/Tolerated Left Lower Extremity: Left Weight Bearing/Tolerated Treatments Pt transfers from [facility] to EOB at Mod A. Pt then transfers to Supine in bed at Min A for lifting LE into bed. PT & pt discussed benefit of pain meds if needed but pt still declined. Pt declined Supine Ex in bed as well. Pt resting at end of tx with all needs met. Assessment Current Status: Fair Progress Pt reports, "I'm just too tired to complete any tx right now." Pt even declined Supine Ex due to fatigue and pain but would not take any pain meds. PT Short Term Goals Short Term Goals Time Frame: Feb 25, 2017 Transfers (B,C,W/C) (FIM): 4 Gait (FIM): 1 Gait Distance Comment: 10' Gait Level of Assist: 3 Gait Assistive Device: Parallel Bars Wheelchair (FIM): 2 Wheelchair Distance: 50' Wheelchair Level of Assist: 4 PT Retirement Goals Retirement Goals PT Retirement Goals Time Frame: Mar 11, 2017 Transfers (B,C,W/C) (FIM): 4 Sit to Lying (QC): 4 Lying-Sitting on Side/Bed(QC): 4 Sit to Stand (QC): 3 Rollin Roll Left to Right (QC): 4 Chair/Vjf-pt-Acqlx Xfer(QC): 3 Car Transfer (QC): 3 Does the Patient Walk: No and Walking Goal IS indicated Gait (FIM): 1 Distance: 20' Walk 10 feet (QC): 3 Gait Level of Assist: 4 Gait Assistive Device: FWW Does the Pt use WC or Scooter?: Yes Wheelchair (FIM): 4 Distance: 150' Wheelchair Level of Assist: 4 Wheel 50 feet with 2 turns (QC: 3 Stairs (FIM): 1 # of Steps: 1 1 Step (curb) (QC): 3 4 Steps (QC): 88 12 Steps (QC): 88 Stairs Level Of Assist: 4 Picking up an Object (QC): 88 PT Plan Problem List Problem List: Activity Tolerance, Functional Strength, Safety, Balance, Gait, Transfer, Bed Mobility Treatment/Plan Treatment Plan: Continue Plan of Care Treatment Plan: Bed Mobility, Concurrent Therapy, Education, Functional Activity Alicia, Functional Strength, Group Therapy, Gait, Safety, Therapeutic Exercise, Transfers Treatment Duration: Mar 11, 2017 Frequency: At least 5 of 7 days/Wk (IRF) Estimated Hrs Per Day: 1.5 hours per day Patient and/or Family Agrees t: Yes Safety Risks/Education Patient Education: Transfer Techniques, Correct Positioning, Safety Issues Teaching Recipient: Patient, Significant Other Teaching Methods: Discussion Response to Teaching: Verbalize Understanding Time/GCodes Time In: 1115 Time Out: 1130 Total Billed Treatment Time: 15 Total Billed Treatment 1, FA (15m) CYN CHIANG PTA Feb 19, 2017 12:03
--- NOTE | 2017-02-19 12:26 | Occupational Ther Daily Note ---
OT Current Status-Daily Note Subjective "I need to go to the bathroom." Appearance Pt. in bed. Request to use the bathroom. Mental Status/Objective Patient Orientation: Person, Unable to Assess Functional [place] Measure 0=Not Assessed/NA 4=Minimal Assistance 1=Total Assistance 5=Supervision or Setup 2=Maximal Assistance 6=Modified [place] 3=Moderate Assistance 7=Complete [place] Attachments: PEG Tube ADL-Treatment Functional [place] Measure 0=Not Assessed/NA 4=Minimal Assistance 1=Total Assistance 5=Supervision or Setup 2=Maximal Assistance 6=Modified [place] 3=Moderate Assistance 7=Complete IndependenceIRFPAI Quality Coding Scale 6 Independent with activity with or without an assistive device 5 Patient requires set up or clean up by helper. Patient completes activity by themselves 4 Supervision or touching assist (CGA). [place] provide cues , steadying assist 3 The helper provides less than half the effort to complete the activity 2 The helper provides more than half the effort to complete the activity 1 Dependent. The helper does all the effort to complete an activity 7 Patient refused to complete or attempt activity 9 The patient did not perform the activity before the current illness or injury 88 Not attempted due to Medical conditions or safety concerns Grooming (FIM): 4 (Pt. is able to brush teeth at sink from wheelchair level with min assist. Requires mod assist overall to brush hair due to incision and stitches.) Oral Hygiene (QC): 4 Bathing (FIM): 2 (Pt. requires max assist to transfer to shower. Pt. begins to dab at chest and arms with washcloth, but is unable to fully wash self. OT assists with washing her. OT places pillow behind her back, and pt. leans up against wall while in shower.) Shower/Bathe Self (QC): 2 Upper Body (FIM): 2 (Pt. requires max assist overall to don bra and shirt.) Upper Body Dressing (QC): 2 Lower Body Dressing (FIM): 1 (Pt. requires dependent assist to don brief, pants , shoes, and socks.) Lower Body Dressing (QC): 1 On/Off Footwear (QC): 1 Toileting (FIM): 1 (Pt. incontinent of stool in underwear. Transferred pt. to toilet and she was able to have sufficient BM. OT stood her while nursing cleansed rear sanjuana area.) Toileting Hygiene (QC): 1 Transfers (B, C, W/C) (FIM): 2 (Max assist for stand and transfer to other surface.) Toilet/Commode Transfer (FIM): 2 Toilet Transfer (QC): 2 Shower Transfer(FIM): 2 Other Treatment Pt. agreed to treatment. After toileting and showering, OT transferred pt. to wheelchair. Took pt. to therapy gym. Pt. completed card sorting task and put each suit in order. Completed this for cognition and sequencing. Tolerated this well with increased time. Pt. then completed fine motor task with nut/ bolt activity. Pt. was asked to take nuts and bolts off and put them back on. Pt. able to do this with increased effort. Pt. taken back to room. All needs met in room. Education OT Patient Education: Correct positioning, Exercise program, Modified ADL techniques, Progress toward Goal/Update tx plan, Purpose of tx/functional activities, Reviewed precautions, Rehab process, Transfer techniques Teaching Recipient: Patient Teaching Methods: Demonstration, Discussion Response to Teaching: Verbalize Understanding, Return Demonstration OT Short Term Goals Short Term Goals Time Frame: Mar 04, 2017 Eating(FIM): 5 Grooming(FIM): 5 Bathing(FIM): 4 Upper Body Dressing(FIM): 5 Lower Body Dressing(FIM): 4 Toileting(FIM): 4 Transfers (B,C,W/C) (FIM): 4 Toilet/Commode Transfer(FIM): 4 Shower Transfer(FIM): 3 Additional Short Term Goals: 1-Demonstrate ADL Tasks, 2-Verbalize Understanding , 3-ImproveStrength/Alicia 1=Demonstrate adherence to instructed precautions during ADL tasks. 2=Patient will verbalize/demonstrate understanding of assistive devices/ modifications for ADL. 3=Patient will improve strength/tolerance for activity to enable patient to perform ADL's. OT Procurement Clerk Goals Procurement Clerk Goals Time Frame: Mar 18, 2017 Eating (FIM): 6 Eating (QC): 6 Groomin Oral Hygiene (QC): 5 Bathing(FIM): 4 Shower/Bathe Self (QC): 4 Upper Body Dressing(FIM): 5 Upper Body Dressing (QC): 5 Lower Body Dressing(FIM): 5 Lower Body Dressing (QC): 5 On/Off Footwear (QC): 5 Toileting(FIM): 5 Toileting Hygiene (QC): 5 Transfers (B,C,W/C) (FIM): 5 Toilet/Commode Transfer(FIM): 5 Toilet/Commode Transfer (QC): 5 Shower Transfer(FIM): 4 Additional Goals: 1-Demonstrate ADL Tasks, 2-Verbalize Understanding, 3- ImproveStrength/Alicia 1=Demonstrate adherence to instructed precautions during ADL tasks. 2=Patient will verbalize/demonstrate understanding of assistive devices/ modifications for ADL. 3=Patient will improve strength/tolerance for activity to enable patient to perform ADL's. OT Education/Plan Problem List/Assessment Assessment: Decreased Activ Tolerance, Decreased Safety Aware, Decreased UE Strength, Dependent Transfers, Impaired Bed Mobility, Impaired Cognition, Impaired Coordination, Impaired Funct Balance, Impaired I ADL's, Impaired Self- Care Skills, Restricted Funct UE ROM Discharge Recommendations Plan/Recommendations: Continue POC Therapy D/C Recommendations: 24 hr Supervision, Home w/ Family Support, Occupational Therapy Home Care, Scheduled Assistance Treatment Plan/Plan of Care Treatment,Training & Education: Yes Patient would benefit from OT for education, treatment and training to promote independence in ADL's, mobility, safety and/or upper extremity function for ADL' s. Plan of Care: ADL Retraining, Caregiver Training, Cognitive Retraining, Functional Mobility, Group Exercise/Act as Ind, UE Funct Exercise/Act Treatment Duration: Mar 18, 2017 Frequency: At least 5 of 7 days/Wk (IRF) Estimated Hrs Per Day: 1.5 hours per day Agreement: Yes Rehab Potential: Fair Time/GCodes Start Time: 08:30 Stop Time: 09:45 Total Time Billed (hr/min): 75 Billed Treatment Time 1, ADL x 45minutes, FA x 30minutes LIGIA CERRATO OT Feb 19, 2017 12:26
--- NOTE | 2017-02-19 14:43 | ST Dysphagia Evaluation ---
Speech Evaluation-General Medical Diagnosis Craniotomy, Bilateral weakness, Falls Onset Date: Feb 03, 2017 Therapy Diagnosis Therapy Diagnosis: Mild to Moderate Oropharyngeal Dysphagia Precautions Precautions: Aspiration Precautions/Isolations: Aspiration, Fall Prevention, Standard Precautions Referral Referring Physician: Dr. Guillaume Dodson Reason for Referral: Evaluation/Treatment Clinical Bedside Swallowing Evaluation Medical History Pertinent Medical History: GERD, HTN Reviewed History: Yes Social History Current Living Status: Spouse Speech PLF/Current-Dysphagia Prior Level of Function Per patient (and ), the patient was receiving a regular diet with thin liquids at home (prior to hospitalization). The patient and the are confused as to what the recommendations were following her most recent video swallow at the [facility]. The patient transferred to our facility on a mechanically soft diet with nectar-thick liquids. Subjective The patient was seated upright in bed upon entrance. The patient's was at bedside. The patient and greeted the clinician appropriately and was agreeable to participation in the clinical swallow assessment. Cognitive Status Patient Orientation: Person, Place, Situation Oral Motor Skills Dentition: Natural Current Food Consistancy: Mechanical Soft, [place] Liquids Ability to Follow Directions: Good Oral Expression Ability: Mild Impairment Voice Voice Phonatory-Based Quality: Weak (Dysphonic.) Voice Pitch: Mildly High Voice Loudness: Mildly Soft/Quiet Face Facial Symmetry: Symmetrical Oral-Facial Assessment Oral-Facial Dentition: Normal Labial Seal Description: Normal Smile: Normal Puff Cheeks: Normal Lingual Protrusion: Normal Lingual ROM: Normal Lingual Strength: Normal Pharynx Velopharyngeal Move.: Normal Volitional Dry Swallow: Yes Voluntary Cough: Yes Dysphagia Evaluation Consistencies Presented: Thin Liquid, Mechanical Soft, [place] Thick Liquid, Pureed 1. The patient did not demonstrate any oral impairments throughout the bedside swallowing evaluation. Pharyngeal Phase: Clears Throat, Delayed Swallow 1. The patient displayed a delayed throat clear following the swallow with ice chips and teaspoon bolus sips (x3) Funct. Velo/Pharyngeal Symptom: Clears Throat 1. The patient displayed a delayed throat clear following the swallow with ice chips and teaspoon size sips of thin liquid. Dietary Recommendations: Mechanical Soft Liquid Recommendations: [place] Consistancy Swallowing Precautions: No Straw, Small Bites and Sips, Sitting 90 Degrees 30 Post Intake Crush Medication Dysphagia Evaluation Summary 1. The patient displayed a mild to moderate oropharyngeal dysphagia characterized by a delayed swallow response and signs/symptoms of aspiration with thin liquids. At this time, the clinician recommends a mechanical soft consistency with nectar-thick liquids. The video swallow from [facility] have been requested. Speech Short Term Goals Short Term Goals Short Term Goals 1. The patient will demonstrate oropharyngeal swallowing exercises with 80% accuracy, independently. Time Frame-STG: Two Weeks Speech Winter Intern Goals Winter Intern Goals 1. The patient will demonstrate the least restrictive diet without signs/ symptoms of aspiration or laryngeal penetration. Time Frame: Three Weeks Speech-Plan Treatment Plan Speech Therapy Treatment Plan: Continue Plan of Care Continue skilled speech pathology to target swallowing safety and a reduction of aspiration. Treatment Duration: Mar 12, 2017 Frequency: Modified Program (IRF) (Four to Five Times per Week) Estimated Hrs Per Day: .5 hour per day Rehab Potential: Guarded Safety Risks/Education Teaching Recipient: Patient, Significant Other Teaching Methods: Discussion Response to Teaching: Verbalize Understanding Education Topics Provided: Results, Recommendations, Plan of Care Time Speech Therapy Time In: 13:50 Speech Therapy Time Out: 14:20 Total Billed Time: 30 Billed Treatment Time 1, ALTAF GOODWIN Feb 19, 2017 14:43
--- NOTE | 2017-02-19 16:20 | Physical Therapy Daily Note ---
PT Daily Note-Current Subjective Pt laying Supine in bed upon arrival and reports had just woken up. Pt agrees to PT after explanation of ARU and the need to complete tx for ARU requirements. Pain Numeric Pain Scale: 5-Moderate Pain Location: Anterior Location Body Site: Head Pain Description: Ache Mental Status Patient Orientation: Person, Place Attachments: PEG Tube Transfers Functional [place] Measure 0=Not Assessed/NA 4=Minimal Assistance 1=Total Assistance 5=Supervision or Setup 2=Maximal Assistance 6=Modified [place] 3=Moderate Assistance 7=Complete IndependenceIRFPAI Quality Coding Scale 6 Independent with activity with or without an assistive device 5 Patient requires set up or clean up by helper. Patient completes activity by themselves 4 Supervision or touching assist (CGA). [place] provide cues , steadying assist 3 The helper provides less than half the effort to complete the activity 2 The helper provides more than half the effort to complete the activity 1 Dependent. The helper does all the effort to complete an activity 7 Patient refused to complete or attempt activity 9 The patient did not perform the activity before the current illness or injury 88 Not attempted due to Medical conditions or safety concerns Weight Bearing Right Lower Extremity: Right Weight Bearing/Tolerated Left Lower Extremity: Left Weight Bearing/Tolerated Exercises Supine Ex: Ankle pumps, Quad Set, Glut sets, Heel Slides, Straight leg raise, Hip abd/add Supine Reps: 20 (2 sets of 20 reps) Treatments Pt completes 2 sets Supine Ex in bed. PT, pt & sp discuss how ARU works, what happens at Weekly [facility], the need to take pain meds as needed to stay on top of pain levels, eating when she is able to have strength for tx as well as need to complete Therapy txs so she can get stronger and more independent with tasks for going home. Pt is resting Supine in bed at end of tx with all needs met. Assessment Current Status: Good Progress Pt is able to complete Supine Ex well with little assistance due to lack of strength at this time. Pt is improving and is more motivated to complete tx. PT Short Term Goals Short Term Goals Time Frame: Feb 25, 2017 Transfers (B,C,W/C) (FIM): 4 Gait (FIM): 1 Gait Distance Comment: 10' Gait Level of Assist: 3 Gait Assistive Device: Parallel Bars Wheelchair (FIM): 2 Wheelchair Distance: 50' Wheelchair Level of Assist: 4 PT Final Inspector Movement Assembly Goals Final Inspector Movement Assembly Goals PT Final Inspector Movement Assembly Goals Time Frame: Mar 11, 2017 Transfers (B,C,W/C) (FIM): 4 Sit to Lying (QC): 4 Lying-Sitting on Side/Bed(QC): 4 Sit to Stand (QC): 3 Rollin Roll Left to Right (QC): 4 Chair/Rla-ud-Xhzkq Xfer(QC): 3 Car Transfer (QC): 3 Does the Patient Walk: No and Walking Goal IS indicated Gait (FIM): 1 Distance: 20' Walk 10 feet (QC): 3 Gait Level of Assist: 4 Gait Assistive Device: FWW Does the Pt use WC or Scooter?: Yes Wheelchair (FIM): 4 Distance: 150' Wheelchair Level of Assist: 4 Wheel 50 feet with 2 turns (QC: 3 Stairs (FIM): 1 # of Steps: 1 1 Step (curb) (QC): 3 4 Steps (QC): 88 12 Steps (QC): 88 Stairs Level Of Assist: 4 Picking up an Object (QC): 88 PT Plan Problem List Problem List: Activity Tolerance, Functional Strength, Safety, Balance, Gait, Transfer, Bed Mobility, ROM Treatment/Plan Treatment Plan: Continue Plan of Care Treatment Plan: Bed Mobility, Concurrent Therapy, Education, Functional Activity Alicia, Functional Strength, Group Therapy, Gait, Safety, Therapeutic Exercise, Transfers Treatment Duration: Mar 11, 2017 Frequency: At least 5 of 7 days/Wk (IRF) Estimated Hrs Per Day: 1.5 hours per day Patient and/or Family Agrees t: Yes Safety Risks/Education Patient Education: Transfer Techniques, Correct Positioning, Safety Issues Teaching Recipient: Patient, Significant Other Teaching Methods: Discussion Response to Teaching: Verbalize Understanding Time/GCodes Time In: 1450 Time Out: 1550 Total Billed Treatment Time: 60 Total Billed Treatment 1, EX x2 (30m) & FA x2 (30m) CYN CHIANG RHEUMATOLOGY SPECIALIST Feb 19, 2017 16:20
[2017-02-19 17:49] VITALS: BP 107/67
[2017-02-19] MEDS: APAP 325 MG/10.15 ML LIQ (TYLENOL) UDC PEG PRN (18:53)
[2017-02-19] MEDS: ATORVASTATIN 80 MG (LIPITOR) TABLET PEG SCH (20:28)
[2017-02-20] MEDS: CYANOCOBALAMIN 500 MCG TAB (VITAMIN B-12) PEG SCH (05:47)
[2017-02-20 06:06] VITALS: BP 115/75
[2017-02-20] MEDS: PANTOPRAZOLE 2 MG/ML LIQUID 200 ML (PROTONIX) PEG SCH ×3 (06:22)
--- NOTE | 2017-02-20 08:21 | Progress Note (SOAP) ---
Subjective Time Seen by Provider: 08:22 Subjective/Events-last exam glioblastoma,. patient has confusion. Patient not able to finish her statements. Objective Exam Vital Signs Date Time Temp Pulse Resp B/P (MAP) Pulse Ox O2 Delivery O2 Flow Rate FiO2 02/20/17 06:06 98.1 71 18 115/75 (88) 97 Room Air 02/19/17 20:20 Room Air 02/19/17 17:49 98.6 70 18 107/67 (80) 97 Room Air Capillary Refill : General Appearance: No Apparent Distress, WD/WN Assessment/Plan Assessment/Plan Assess & Plan/Chief Complaint glioblastoma. Hypertension. Hyperlipidemia. GERD. Viral encephalitis. Chronic constipation. Vitamin B12 deficiency. Vitamin D deficiency. . 02/19/17. Glioblastoma. Hypertension. Hyperlipidemia. GERD Vitamin B12 deficiency. Vitamin D deficiency. Patient feeling better this morning. . Glioblastoma. Hypertension. Hyperlipidemia. GERD. Patient has trouble with thought process. Clinical Quality Measures DVT/VTE Risk/Contraindication: Risk Factor Score Per Nursin RFS Level Per Nursing on Admit: 4+=Very High GANESH HEADLEY DO Feb 20, 2017 08:21
[2017-02-20] MEDS: LEVETIRACETAM 500 MG/ 5 ML UDC ORAL SOLN (KEPPRA) PEG SCH ×2 (08:54→20:34)
[2017-02-20] MEDS: amLODIPine 5 MG (NORVASC) TAB PEG SCH (08:54)
[2017-02-20] MEDS: DEXAMETHASONE 4 MG TAB (DECADRON) PEG SCH ×2 (08:55→20:34)
[2017-02-20] MEDS: ATENOLOL 50 MG (TENORMIN) TAB PEG SCH (08:55)
[2017-02-20] MEDS: FAMOTIDINE 20 MG (PEPCID) TABLET PEG SCH (08:55)
[2017-02-20 09:00] VITALS: BP 114/72
[2017-02-20] MEDS: APAP 325 MG/10.15 ML LIQ (TYLENOL) UDC PEG PRN (10:02)
--- NOTE | 2017-02-20 10:33 | Occupational Ther Daily Note ---
OT Current Status-Daily Note Subjective Pt alert, lying in bed. Pt agreed to therapy. No c/o pain. Mental Status/Objective Patient Orientation: Person, Place, Time, Situation Functional [place] Measure 0=Not Assessed/NA 4=Minimal Assistance 1=Total Assistance 5=Supervision or Setup 2=Maximal Assistance 6=Modified [place] 3=Moderate Assistance 7=Complete [place] ADL-Treatment Pt declined shower today. Pt agreed to complete sponge bath. Mod A to go from supine to sitting with HOB raised. Max A to transfer, pt able to bear wt on feet and shuffle feet for stand pivot transfer. Sitting on BSC, pt was able to cleanse hands and face with cleansing clothe then cleanse sanjuana area. Assist to stand and nrsg tech cleansed buttocks and hiked pants over hips. Pt required assist to don/doff pants over feet. Pt propped feet up on higher surface then crossed leg over knee and donned sock/shoe. Assist to tie shoes. Using w/c, pt was transported into bathroom and sat at sink where pt completed own grooming. Pt unable to reach back of head to brush. After therapy, pt lying in bed with nrsg present. Call light/phone in reach. All needs met in room. Functional [place] Measure 0=Not Assessed/NA 4=Minimal Assistance 1=Total Assistance 5=Supervision or Setup 2=Maximal Assistance 6=Modified [place] 3=Moderate Assistance 7=Complete IndependenceIRFPAI Quality Coding Scale 6 Independent with activity with or without an assistive device 5 Patient requires set up or clean up by helper. Patient completes activity by themselves 4 Supervision or touching assist (CGA). [place] provide cues , steadying assist 3 The helper provides less than half the effort to complete the activity 2 The helper provides more than half the effort to complete the activity 1 Dependent. The helper does all the effort to complete an activity 7 Patient refused to complete or attempt activity 9 The patient did not perform the activity before the current illness or injury 88 Not attempted due to Medical conditions or safety concerns Grooming (FIM): 5 Oral Hygiene (QC): 5 Upper Body (FIM): 4 (Pt able to don shirt over head then require assistance to pull down in back.) Upper Body Dressing (QC): 4 Lower Body Dressing (FIM): 2 Lower Body Dressing (QC): 2 On/Off Footwear (QC): 3 Toileting (FIM): 2 Toileting Hygiene (QC): 2 Transfers (B, C, W/C) (FIM): 2 Toilet/Commode Transfer (FIM): 2 Toilet Transfer (QC): 2 OT Short Term Goals Short Term Goals Time Frame: Mar 04, 2017 Eating(FIM): 5 Grooming(FIM): 5 Bathing(FIM): 4 Upper Body Dressing(FIM): 5 Lower Body Dressing(FIM): 4 Toileting(FIM): 4 Transfers (B,C,W/C) (FIM): 4 Toilet/Commode Transfer(FIM): 4 Shower Transfer(FIM): 3 Additional Short Term Goals: 1-Demonstrate ADL Tasks, 2-Verbalize Understanding , 3-ImproveStrength/Alicia 1=Demonstrate adherence to instructed precautions during ADL tasks. 2=Patient will verbalize/demonstrate understanding of assistive devices/ modifications for ADL. 3=Patient will improve strength/tolerance for activity to enable patient to perform ADL's. OT Intermediate Goals Intermediate Goals Time Frame: Mar 18, 2017 Eating (FIM): 6 Eating (QC): 6 Groomin Oral Hygiene (QC): 5 Bathing(FIM): 4 Shower/Bathe Self (QC): 4 Upper Body Dressing(FIM): 5 Upper Body Dressing (QC): 5 Lower Body Dressing(FIM): 5 Lower Body Dressing (QC): 5 On/Off Footwear (QC): 5 Toileting(FIM): 5 Toileting Hygiene (QC): 5 Transfers (B,C,W/C) (FIM): 5 Toilet/Commode Transfer(FIM): 5 Toilet/Commode Transfer (QC): 5 Shower Transfer(FIM): 4 Additional Goals: 1-Demonstrate ADL Tasks, 2-Verbalize Understanding, 3- ImproveStrength/Alicia 1=Demonstrate adherence to instructed precautions during ADL tasks. 2=Patient will verbalize/demonstrate understanding of assistive devices/ modifications for ADL. 3=Patient will improve strength/tolerance for activity to enable patient to perform ADL's. OT Education/Plan Discharge Recommendations Plan/Recommendations: Continue POC Treatment Plan/Plan of Care Patient would benefit from OT for education, treatment and training to promote independence in ADL's, mobility, safety and/or upper extremity function for ADL' s. Plan of Care: ADL Retraining, Caregiver Training, Cognitive Retraining, Functional Mobility, Group Exercise/Act as Ind, UE Funct Exercise/Act Treatment Duration: Mar 18, 2017 Frequency: At least 5 of 7 days/Wk (IRF) Estimated Hrs Per Day: 1.5 hours per day Agreement: Yes Rehab Potential: Guarded Time/GCodes Start Time: 08:00 Stop Time: 09:00 Total Time Billed (hr/min): 60 Billed Treatment Time 1 visit-ADL 4 (60 min) JUANI LOTT Feb 20, 2017 10:32
--- NOTE | 2017-02-20 11:57 | Physical Therapy Daily Note ---
PT Daily Note-Current Subjective Patient in bed pre tx, agrees reluctantly to PT. States she has 9/10 pain in her head, has had pain meds. Appearance Patient in wheelchair at bedside post tx with nurse call and kennedy, in the room. Mental Status Patient Orientation: Person, Place, Situation Attachments: PEG Tube Transfers Functional [place] Measure 0=Not Assessed/NA 4=Minimal Assistance 1=Total Assistance 5=Supervision or Setup 2=Maximal Assistance 6=Modified [place] 3=Moderate Assistance 7=Complete IndependenceIRFPAI Quality Coding Scale 6 Independent with activity with or without an assistive device 5 Patient requires set up or clean up by helper. Patient completes activity by themselves 4 Supervision or touching assist (CGA). [place] provide cues , steadying assist 3 The helper provides less than half the effort to complete the activity 2 The helper provides more than half the effort to complete the activity 1 Dependent. The helper does all the effort to complete an activity 7 Patient refused to complete or attempt activity 9 The patient did not perform the activity before the current illness or injury 88 Not attempted due to Medical conditions or safety concerns Transfers (B, C, W/C) (FIM): 3 Scootin Rollin Supine to/from Sit: 4 Sit to/from Stand: 3 Bed to/from Chair: 3 cues for hand placement and to scoot forward before standing Weight Bearing Right Lower Extremity: Right Weight Bearing/Tolerated Left Lower Extremity: Left Weight Bearing/Tolerated Gait Training Gait (FIM): 1 Distance: 15'x3 Gait Level of Assist: 3 Gait Persons Needed: 1 Gait Assistive Device: FWW wheelchair follow, patient needs cues to stand up strait, tends to lean forward and flex at the hip. Wheelchair Training Wheelchair (FIM): 2 Distance: 100'x2 Wheelchair Level of Assist: 3 Type of Wheelchair: Manual Exercises NuStep Minutes: 10 NuStep Workload: 5 Treatments bed mobility and transfers, ambulation, functional strengthening Assessment Current Status: Fair Progress Patient did make improvements but she needed a lot of encouragement to participate. She has very poor motivation. PT Short Term Goals Short Term Goals Time Frame: Feb 25, 2017 Transfers (B,C,W/C) (FIM): 4 Gait (FIM): 1 Gait Distance Comment: 10' Gait Level of Assist: 3 Gait Assistive Device: Parallel Bars Wheelchair (FIM): 2 Wheelchair Distance: 50' Wheelchair Level of Assist: 4 PT Longterm Goals Orthotic Assistant Goals PT Orthotic Assistant Goals Time Frame: Mar 11, 2017 Transfers (B,C,W/C) (FIM): 4 Sit to Lying (QC): 4 Lying-Sitting on Side/Bed(QC): 4 Sit to Stand (QC): 3 Rollin Roll Left to Right (QC): 4 Chair/Eao-mx-Rkzzh Xfer(QC): 3 Car Transfer (QC): 3 Does the Patient Walk: No and Walking Goal IS indicated Gait (FIM): 1 Distance: 20' Walk 10 feet (QC): 3 Gait Level of Assist: 4 Gait Assistive Device: FWW Does the Pt use WC or Scooter?: Yes Wheelchair (FIM): 4 Distance: 150' Wheelchair Level of Assist: 4 Wheel 50 feet with 2 turns (QC: 3 Stairs (FIM): 1 # of Steps: 1 1 Step (curb) (QC): 3 4 Steps (QC): 88 12 Steps (QC): 88 Stairs Level Of Assist: 4 Picking up an Object (QC): 88 PT Plan Problem List Problem List: Activity Tolerance, Functional Strength, Safety, Balance, Gait, Transfer, Bed Mobility Treatment/Plan Treatment Plan: Continue Plan of Care Treatment Plan: Bed Mobility, Concurrent Therapy, Education, Functional Activity Alicia, Functional Strength, Group Therapy, Gait, Safety, Therapeutic Exercise, Transfers Treatment Duration: Mar 11, 2017 Frequency: At least 5 of 7 days/Wk (IRF) Estimated Hrs Per Day: 1.5 hours per day Patient and/or Family Agrees t: Yes Safety Risks/Education Patient Education: Gait Training, Transfer Techniques, Correct Positioning, W/ C Management, Safety Issues Teaching Recipient: Patient Teaching Methods: Demonstration, Discussion Response to Teaching: Reinforcement Needed Time/GCodes Time In: 1100 Time Out: 1200 Total Billed Treatment Time: 60 Total Billed Treatment 1 visit GT 30' EX 10' WCH 20' NGUYEN HUITRON PT Feb 20, 2017 11:57
--- NOTE | 2017-02-20 13:17 | ST Cognitive Linguistic Eval ---
Speech Evaluation-General Medical Diagnosis Craniotomy, Bilateral weakness, Falls Onset Date: Feb 03, 2017 Therapy Diagnosis Therapy Diagnosis: Mild Cognitive Impairment Precautions Precautions: Aspiration Precautions/Isolations: Aspiration, Fall Prevention, Standard Precautions Referral Referring Physician: Dr. Guillaume Dodson Reason for Referral: Evaluation/Treatment Cognitive Evaluation Medical History Pertinent Medical History: GERD, HTN Reviewed History: Yes Social History Current Living Status: Spouse Speech PLF-Current Status Prior Level of Function The patient denied prior challenges with speech, language, or cognition. Subjective The patient was recently admitted to [facility] following treatment for glioblastoma (craniotomy). The patient greeted the clinician appropriately and was agreeable to participation in the cognitive treatment session. Per patient and , she has noticed changes (decline) in her ability to recall specific information, as well as, a reduced rate of speech. Language Eval: Auditory Comprehends Simple Yes/No Ques: Functional Indent/Objects Multiple Briceno: Functional Ident/Pics in Multiple Briceno: Functional Follows 1-Step Commands: Functional Follows Complex Directions: Functional Follows General Conversations: Mild (The patient does refer to for clarity and accuracy.) Language Eval: Verbal Language Completes Spontaneous Greeting: Functional Produces Auto, Serial Info: Functional Imitates Simple Words/Phrases: Functional Word Finding: Functional Requests Basic Needs: Functional States Basic Personal Info: Functional Expresses Complex Ideas: Functional Language Evaluation: Reading Comprehends Single Nouns: Functional Follows Simple Written Direct: Functional Language Evaluation: Writing Copies/Traces: Functional Writes to Simple Dictation: Functional Writes Personal Information: Functional Cognitive Patient Orientation The patient was independently oriented to month, day of week, date, and year. Objective Cognitive Domain Attention: WNL Memory: Mild Problem Solving: Mild Objective Oral Motor/Speech Production The patient presents with a mildly reduced rate of speech, however, remains 100 % intelligible in known and unknown contexts. Impression The patient displays mild cognitive deficits most notably in the areas of memory. Communication/Social Cognition Comprehension: 5 Expression: 5 Social Interaction: 5 Problem Solvin Memory: 3 Speech Patient Assess Expression of Ideas/Wants: Exhibits (3) Understanding [place] Content: Usually Understands (3) Brief Interview-Mental Status: Yes Repetition of Three Words: Three (3) Temporal Orientation: Year: Correct (3) Temporal Orientation: Month: Accurate within 5 days(2) Temporal Orientation: Day: Correct (1) Recall : Wear to say "Sock": No, could not recall (0) Recall : Color: Yes, no cue required (2) Recall : Bed: Yes, no cue required (2) Speech Short Term Goals Short Term Goals Short Term Goals 1. The patient will demonstrate oropharyngeal swallowing exercises with 80% accuracy, independently. 2. The patient will recall and demonstrate three functional memory strategies for use at home with mild clinician verbal cueing. Time Frame-STG: Two Weeks Speech Nursing Home Goals Toe Closing Machine Tender Goals 1. The patient will demonstrate the least restrictive diet without signs/ symptoms of aspiration or laryngeal penetration. 2. The patient will demonstrate improved functional memory and use of memory strategies for increased function and safety at home. Time Frame: Three Weeks Speech-Plan Treatment Plan Speech Therapy Treatment Plan: Continue Plan of Care Continue skilled speech pathology to target functional memory strategies. Treatment Duration: Mar 12, 2017 Frequency: Modified Program (IRF) (Four to Five Times per Week) Estimated Hrs Per Day: .5 hour per day Rehab Potential: Guarded Safety Risks/Education Teaching Recipient: Patient, Significant Other Teaching Methods: Discussion Response to Teaching: Verbalize Understanding Education Topics Provided: Results, Recommendations, Plan of Care Time Speech Therapy Time In: 12:30 Speech Therapy Time Out: 13:00 Total Billed Time: 30 Billed Treatment Time 1, ALTAF LOVE Feb 20, 2017 13:17
--- NOTE | 2017-02-20 14:27 | Therapy Group Daily Note ---
Therapy Daily Group Note Patient Education Topic Home Safety, Energy Cons Exercises LE Seated Exercise, UE Exercise, Other (relaxation exercises) Other/Notes Pt. attended group PT OT session. Pt. in WC with max assist for TRFs in out WC and bed before and after group. Pt. was friendly, participated in introduction and joined conversation re: how she likes to relax as well as her own methods and ways of saving energy at home in daily life. Pt. participated well in seated U&L extremity ther ex. In room after Rx in bed with garcia at hand and needs met Start Time: 13:00 Stop Time: 14:10 Total Billed Treatment Time: 70 Total Billed Treatment 1,GRP JOCELYNE REDMOND ANNEALER HELPER Feb 20, 2017 14:27
[2017-02-20] MEDS: SENNA W/DOCUSATE (SENOKOT S) TABLET PEG PRN (17:36)
[2017-02-20 18:00] VITALS: BP 106/69
[2017-02-20] MEDS: ATORVASTATIN 80 MG (LIPITOR) TABLET PEG SCH (20:37)
[2017-02-21 05:00] VITALS: BP 114/76
[2017-02-21] MEDS: CYANOCOBALAMIN 500 MCG TAB (VITAMIN B-12) PEG SCH (06:34)
[2017-02-21] MEDS: PANTOPRAZOLE 2 MG/ML LIQUID 200 ML (PROTONIX) PEG SCH ×3 (06:35)
[2017-02-21] MEDS: ATENOLOL 50 MG (TENORMIN) TAB PEG SCH (10:02)
[2017-02-21] MEDS: DEXAMETHASONE 4 MG TAB (DECADRON) PEG SCH ×2 (10:02→20:50)
[2017-02-21] MEDS: FAMOTIDINE 20 MG (PEPCID) TABLET PEG SCH (10:02)
[2017-02-21] MEDS: amLODIPine 5 MG (NORVASC) TAB PEG SCH (10:03)
[2017-02-21] MEDS: LEVETIRACETAM 500 MG/ 5 ML UDC ORAL SOLN (KEPPRA) PEG SCH ×2 (10:03→20:50)
--- NOTE | 2017-02-21 12:44 | Physical Therapy Daily Note ---
PT Daily Note-Current Subjective Pt. in bed and agrees to therapy. She denies pain but reports she is fearful of falling with standing and transfers. Transfers Functional [place] Measure 0=Not Assessed/NA 4=Minimal Assistance 1=Total Assistance 5=Supervision or Setup 2=Maximal Assistance 6=Modified [place] 3=Moderate Assistance 7=Complete IndependenceIRFPAI Quality Coding Scale 6 Independent with activity with or without an assistive device 5 Patient requires set up or clean up by helper. Patient completes activity by themselves 4 Supervision or touching assist (CGA). [place] provide cues , steadying assist 3 The helper provides less than half the effort to complete the activity 2 The helper provides more than half the effort to complete the activity 1 Dependent. The helper does all the effort to complete an activity 7 Patient refused to complete or attempt activity 9 The patient did not perform the activity before the current illness or injury 88 Not attempted due to Medical conditions or safety concerns Transfers (B, C, W/C) (FIM): 3 Rollin Supine to/from Sit: 3 Sit to/from Stand: 3 Bed to/from Chair: 3 Weight Bearing Right Lower Extremity: Right Weight Bearing/Tolerated Left Lower Extremity: Left Weight Bearing/Tolerated Exercises Supine Ex: Ankle pumps, Quad Set, Glut sets, Heel Slides, Straight leg raise, Hip abd/add Supine Reps: 10 Standing: Sit to Stand (4) Treatments transfers, LE exercise Assessment Current Status: Good Progress Pt. needed mod A with transfers this date. We worked on sit to stand transfers and she fatigued very quickly in LE's and needed mod A for standing balance. Pt. needed min-mod A with LE exercises. Pt. in bed post session with call light and all needs met. PT Short Term Goals Short Term Goals Time Frame: Feb 25, 2017 Transfers (B,C,W/C) (FIM): 4 Gait (FIM): 1 Gait Distance Comment: 10' Gait Level of Assist: 3 Gait Assistive Device: Parallel Bars Wheelchair (FIM): 2 Wheelchair Distance: 100'x2 Wheelchair Level of Assist: 4 PT Wing Commander Goals [facility] Goals PT Wing Commander Goals Time Frame: Mar 11, 2017 Transfers (B,C,W/C) (FIM): 4 Sit to Lying (QC): 4 Lying-Sitting on Side/Bed(QC): 4 Sit to Stand (QC): 3 Rollin Roll Left to Right (QC): 4 Chair/Sqq-cl-Fukhn Xfer(QC): 3 Car Transfer (QC): 3 Does the Patient Walk: No and Walking Goal IS indicated Gait (FIM): 1 Distance: 20' Walk 10 feet (QC): 3 Gait Level of Assist: 4 Gait Assistive Device: FWW Does the Pt use WC or Scooter?: Yes Wheelchair (FIM): 4 Distance: 150' Wheelchair Level of Assist: 4 Wheel 50 feet with 2 turns (QC: 3 Stairs (FIM): 1 # of Steps: 1 1 Step (curb) (QC): 3 4 Steps (QC): 88 12 Steps (QC): 88 Stairs Level Of Assist: 4 Picking up an Object (QC): 88 PT Plan Treatment/Plan Treatment Plan: Continue Plan of Care Treatment Plan: Bed Mobility, Concurrent Therapy, Education, Functional Activity Alicia, Functional Strength, Group Therapy, Gait, Safety, Therapeutic Exercise, Transfers Treatment Duration: Mar 11, 2017 Frequency: At least 5 of 7 days/Wk (IRF) Estimated Hrs Per Day: 1.5 hours per day Patient and/or Family Agrees t: Yes Time/GCodes Time In: 830 Time Out: 855 Total Billed Treatment Time: 25 Total Billed Treatment 1, FA 25' MAMIE DAN PT Feb 21, 2017 12:44
[2017-02-21] MEDS ORDERED: INFLUENZA TRIvalent 2017-2018 0.5 ML/45 MCG SYR IM ONE (16:15)
[2017-02-21 18:21] VITALS: BP 109/71
[2017-02-21] MEDS: ATORVASTATIN 80 MG (LIPITOR) TABLET PEG SCH (20:50)
[2017-02-22 05:03] VITALS: BP 114/76
[2017-02-22] MEDS: PANTOPRAZOLE 2 MG/ML LIQUID 200 ML (PROTONIX) PEG SCH ×3 (06:40)
[2017-02-22] MEDS: CYANOCOBALAMIN 500 MCG TAB (VITAMIN B-12) PEG SCH (06:40)
[2017-02-22] MEDS: amLODIPine 5 MG (NORVASC) TAB PEG SCH (09:00)
[2017-02-22] MEDS: LEVETIRACETAM 500 MG/ 5 ML UDC ORAL SOLN (KEPPRA) PEG SCH ×2 (09:00→20:47)
[2017-02-22] MEDS: DEXAMETHASONE 4 MG TAB (DECADRON) PEG SCH ×2 (09:00→20:47)
[2017-02-22] MEDS: FAMOTIDINE 20 MG (PEPCID) TABLET PEG SCH (09:00)
[2017-02-22] MEDS: ATENOLOL 50 MG (TENORMIN) TAB PEG SCH (09:00)
[2017-02-22 18:00] VITALS: BP 116/75
--- NOTE | 2017-02-22 18:36 | Individualized Plan of Care ---
Individualized Plan of Care Rehab Nursing IPOC Order Admission Date Feb 17, 2017 at 17:59 Current Orders Orders Follow-Up Appointment (02/17/17 15:58) Dys2 Mechanically Altered (02/17/17 Lunch) Nursing Communication (Patient (02/17/17 16:53) Dietary Consult (02/17/17 16:53) Admission-Acute Rehab Unit (02/17/17 16:55) Sequential Compression Device 08,20 (02/17/17 16:55) Hide Dropper-Inpt Rehab (02/17/17 16:55) Rehab Nursing Orders-Ipoc (02/17/17 16:55) Physical Therapy Rehab Orders (02/17/17 16:55) Occupational Therapy Rehab Ord (02/17/17 16:55) Speech Therapy Rehab Orders (02/17/17 16:55) Intake & Output 06,14,22 (02/17/17 16:55) Precautions (Aru) (02/17/17 16:55) Weekly Weight (Lbs) WEEK (02/17/17 16:55) Dexamethasone Tablet (Decadron Tablet) (02/17/17 21:00) Heparin Injection (Heparin Injection) (02/17/17 18:00) Levetiracetam Tablet (Keppra Tablet) (02/17/17 21:00) Ceftriaxone Injection (Rocephin Injectio (02/18/17 08:00) Senna S Tablet (Senokot S Tablet) (02/17/17 17:15) Acetaminophen Tablet/Caplet (Tylenol T (02/17/17 17:15) Amlodipine Tablet (Norvasc Tablet) (02/18/17 09:00) Atenolol Tablet (Tenormin Tablet) (02/18/17 09:00) Pantoprazole Tablet (Protonix Tablet) (02/18/17 07:00) Famotidine Tablet (Pepcid Tablet) (02/18/17 09:00) Ergocalciferol Capsule (Vitamin D2 Capsu (02/23/17 09:00) Cyanocobalamin Tablet (Vitamin B-12 Tabl (02/18/17 07:00) Pharmacy Communication (Pharmacy Communi (02/17/17 17:15) Atorvastatin Tablet (Lipitor Tablet) (02/17/17 21:00) Influenza Vac Order Indicated (02/17/17 18:14) Request Ot Evaluate & Treat (02/17/17 18:14) Request For Dysphagia Services (02/17/17 18:14) Ambulate TID (02/17/17 18:14) Sequential Compression Device (02/17/17 18:14) Dvt/Vte Risk - Notifiy Physici (02/17/17 18:14) Oxycodone 5 Mg/5ml Oral Soln (Roxicodone (02/17/17 17:15) Heparin Injection (Heparin Injection) (02/17/17 23:00) Nursing Communication (Patient (02/17/17 18:42) Consult Physician (02/17/17 18:56) Code/Resuscitation (02/17/17 18:57) Cbc With Automated Diff (02/18/17 06:00) Comprehensive Metabolic Panel (02/18/17 06:00) Pharmacy Consult/Message (02/18/17 09:31) Levetiracetam Oral Solution (Keppra Oral (02/18/17 09:45) Acetaminophen Oral Solution (Tylenol Ora (02/18/17 09:45) Amlodipine Tablet (Norvasc Tablet) (02/19/17 09:00) Atenolol Tablet (Tenormin Tablet) (02/19/17 09:00) Atorvastatin Tablet (Lipitor Tablet) (02/18/17 21:00) Cyanocobalamin Tablet (Vitamin B-12 Tabl (02/19/17 07:00) Dexamethasone Tablet (Decadron Tablet) (02/18/17 21:00) Famotidine Tablet (Pepcid Tablet) (02/19/17 09:00) Water, Sterile For Irrigation (Sterile W (02/19/17 07:00) Ceftriaxone Injection (Rocephin Injectio (02/18/17 10:00) Lidocaine 1% Injection (Xylocaine 1% Inj (02/18/17 10:00) Senna S Tablet (Senokot S Tablet) (02/18/17 10:15) Oxycodone 5 Mg/5ml Oral Soln (Roxicodone (02/18/17 10:15) Consult Physician (02/18/17 14:15) Patient Visit (02/18/17 ) Pt Eval High Complexity (02/18/17 ) Wheelchair Mgmt/Propulsn 15min (02/18/17 ) Functional Activities, Ea 15 (02/18/17 ) Exercise Therap, Ea 15 Min (02/18/17 ) Outside Films For Comparison (02/11/17 ) Outside Films For Comparison (02/04/17 ) Outside Films For Comparison (01/29/17 ) Outside Films For Comparison (01/30/17 ) Calorie Count (02/19/17 13:48) Patient Visit (02/19/17 ) Dysphagia Evaluation Std (02/19/17 ) Patient Visit (02/19/17 ) Functional Activities, Ea 15 (02/19/17 ) Exercise Therap, Ea 15 Min (02/19/17 ) Patient Visit (02/20/17 ) Gait Training, Ea 15 Min (02/20/17 ) Exercise Therap, Ea 15 Min (02/20/17 ) Wheelchair Mgmt/Propulsn 15min (02/20/17 ) Patient Visit (02/20/17 ) Speech Sound Lang Comp (02/20/17 ) Patient Visit (02/20/17 ) Therapeutic, Group (02/20/17 ) Patient Visit (02/21/17 ) Functional Activities, Ea 15 (02/21/17 ) Influenza Trivalent [id number] (Afluria (02/21/17 16:15) Rehab Nursing Orders: Diseage Management, Edu in Press Rel Techn, Hydration Management, Nutrition Management, Pain Management Other Nursing Orders: Monitor for any constipation or urinary retention Intensity of Therapy to be met Patient to be seen: Min.3h per day/5 of 7d PT IPOC Problem List: Activity Tolerance, Functional Strength, Safety, Balance, Gait, Transfer, Bed Mobility Treatment Plan: Continue Plan of Care Bed Mobility, Concurrent Therapy, Education, Functional Activity Alicia, Functional Strength, Group Therapy, Gait, Safety, Therapeutic Exercise, Transfers Treatment Duration: Mar 11, 2017 Frequency: At least 5 of 7 days/Wk (IRF) Estimated Hrs Per Day: 1.5 hours per day OT IPOC Problems: Decreased Activ Tolerance, Decreased Safety Aware, Decreased UE Strength, Dependent Transfers, Impaired Bed Mobility, Impaired Cognition, Impaired Coordination, Impaired Funct Balance, Impaired I ADL's, Impaired Self- Care Skills, Restricted Funct UE ROM OT Treatment, Training and Edu: Yes Plan of Care: ADL Retraining, Caregiver Training, Cognitive Retraining, Functional Mobility, Group Exercise/Act as Ind, UE Funct Exercise/Act Treatment Duration: Mar 18, 2017 Frequency: At least 5 of 7 days/Wk (IRF) Estimated Hrs Per Day: 1.5 hours per day [facility] Speech Therapy Treatment Plan: Continue Plan of Care Treatment Duration: Mar 12, 2017 Frequency: Modified Program (IRF) (Four to Five Times per Week) Estimated Hrs Per Day: .5 hour per day Hide Dropper/Case Mgmt Hide Dropper/Case Managemen: Discharge Planning, Patient/Family Counseling Physician [facility] Medical Issues being managed closely and that require the 24 hour availability of a physician:HTN Chronic constipation Medical Issues: Bowel/Bladder Function, Falls Precautions, Infection Protection , Wound Care, Other (List) Brief Synthesis of Preadmission Screen, Post-Admission Evaluation, and Therapy Evaluations:61 yo female s/p crani for GBM referred to IRU for ongoning rehab Patient to have f/u Radiation therapy at some point Had been Independent prior to this and living with spouse in [place] 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
[2017-02-22] MEDS: ATORVASTATIN 80 MG (LIPITOR) TABLET PEG SCH (20:48)
[2017-02-22] MEDS: APAP 325 MG/10.15 ML LIQ (TYLENOL) UDC PEG PRN ×2 (21:03)
[2017-02-23 05:16] VITALS: BP 107/70
[2017-02-23] MEDS: PANTOPRAZOLE 2 MG/ML LIQUID 200 ML (PROTONIX) PEG SCH ×3 (05:52)
[2017-02-23] MEDS: CYANOCOBALAMIN 500 MCG TAB (VITAMIN B-12) PEG SCH (05:52)
--- NOTE | 2017-02-23 08:22 | Progress Note (SOAP) ---
Subjective Time Seen by Provider: 08:20 Subjective/Events-last exam glioblastoma. Patient has less confusion but still has confusion Objective Exam Vital Signs Date Time Temp Pulse Resp B/P (MAP) Pulse Ox O2 Delivery O2 Flow Rate FiO2 02/23/17 05:16 97.4 71 18 107/70 (82) 97 Room Air 02/22/17 20:00 Room Air 02/22/17 18:00 97.9 79 20 116/75 (89) 96 Room Air 02/22/17 09:00 Room Air Capillary Refill : General Appearance: No Apparent Distress, WD/WN Assessment/Plan Assessment/Plan Assess & Plan/Chief Complaint glioblastoma. Hypertension. Hyperlipidemia. GERD. Viral encephalitis. Chronic constipation. Vitamin B12 deficiency. Vitamin D deficiency. . 02/19/17. Glioblastoma. Hypertension. Hyperlipidemia. GERD Vitamin B12 deficiency. Vitamin D deficiency. Patient feeling better this morning. . Glioblastoma. Hypertension. Hyperlipidemia. GERD. Patient has trouble with thought process.. . 03/08. Glioblastoma. Hypertension under control. Hyperlipidemia. GERD. Patient's confusion is less Clinical Quality Measures DVT/VTE Risk/Contraindication: Risk Factor Score Per Nursin RFS Level Per Nursing on Admit: 4+=Very High GANESH HEADLEY DO Feb 23, 2017 08:22
[2017-02-23] MEDS: FAMOTIDINE 20 MG (PEPCID) TABLET PEG SCH (08:24)
[2017-02-23] MEDS: amLODIPine 5 MG (NORVASC) TAB PEG SCH (08:24)
[2017-02-23] MEDS: ATENOLOL 50 MG (TENORMIN) TAB PEG SCH (08:24)
[2017-02-23] MEDS: VITAMIN D2 50,000 UNITS (1.25 MG) CAP PO SCH (08:24)
[2017-02-23] MEDS: LEVETIRACETAM 500 MG/ 5 ML UDC ORAL SOLN (KEPPRA) PEG SCH ×2 (08:24→21:31)
[2017-02-23] MEDS: DEXAMETHASONE 4 MG TAB (DECADRON) PEG SCH ×2 (08:25→21:31)
--- NOTE | 2017-02-23 11:10 | Speech Therapy Daily Note ---
Speech Daily Progress Note Subjective Date Seen by Provider: Feb 23, 2017 Time Seen by Provider: 09:00 The patient was seated upright in bed upon entrance. The patient greeted the clinician appropriately and was agreeable to participation in the dysphagia treatment session on this date. Objective - The patient continues to remain significantly confused regarding diet consistency recommendations and swallowing recommendations provided by the clinician. The patient arrived to [address] [facility] with recommendations of ice chips (10 to 15 per hour), mechanically altered consistencies, and nectar-thick liquids. The patient was evaluated by the clinician on 02/20/2017 with the same results, therefore, transfer recommendations remained in place (nectar-thick liquids, mechanically altered consistencies). The patient continues to state she is on thin liquids, however, the clinician and chart recommends otherwise. The risk of thin liquids was thoroughly discussed on this date, as well as, signs/symptoms of aspiration. The patient stated, "no I'm not on thin liquids, just ice chips." However, five minutes following, the patient stated she consumes thin liquids like soup for lunch. Additionally, regardless of the clinician recommendation, she refuses to attempt pills by mouth stating she "needs permission" from her doctors. To aid in any confusion, a video swallow has been requested to definitively rule out aspiration with any consistency the patient is currently consuming. - Thin Liquid Trials: The patient displayed an immediate throat clear and wet vocal quality with three of five teaspoon trials of thin liquid. - Dysphagia Exercises: The Tracey and Effortful swallow exercises were introduced on this date. The patient demonstrated fair accuracy, however, required consistent encouragement for completion. Assessment Assessment Current Status: Poor Progress Treatment Plan Continue Plan of Care Communication Comprehension: 3 Expression: 4 Social Cognition Social Interaction: 4 Problem Solvin Memory: 4 Speech Short Term Goals Short Term Goals Short Term Goals 1. The patient will demonstrate oropharyngeal swallowing exercises with 80% accuracy, independently. 2. The patient will recall and demonstrate three functional memory strategies for use at home with mild clinician verbal cueing. Time Frame-STG: Two Weeks Speech Pediatric Physician Goals Pediatric Physician Goals 1. The patient will demonstrate the least restrictive diet without signs/ symptoms of aspiration or laryngeal penetration. 2. The patient will demonstrate improved functional memory and use of memory strategies for increased function and safety at home. Time Frame: Three Weeks Speech-Plan Treatment Plan Speech Therapy Treatment Plan: Continue Plan of Care Continue skilled speech pathology to target swallowing safety. Treatment Duration: Mar 12, 2017 Frequency: Modified Program (IRF) (Four to Five Times per Week) Estimated Hrs Per Day: .5 hour per day Rehab Potential: Guarded Safety Risks/Education Teaching Recipient: Patient Teaching Methods: Discussion Response to Teaching: Reinforcement Needed Education Topics Provided: Recommendations, Video Swallow Information Time Speech Therapy Time In: 09:00 Speech Therapy Time Out: 09:30 Total Billed Time: 30 Billed Treatment Time 1, ALTAF NORRIS Feb 23, 2017 11:10
--- NOTE | 2017-02-23 12:00 | Physical Therapy Daily Note ---
PT Daily Note-Current Subjective Patient in wheelchair at bedside pre tx, agrees to PT, has no complaints of pain. Appearance Patient in wheelchair at bedside post tx with nurse call, phone, tray, all needs met. Mental Status Patient Orientation: Person, Place, Situation Attachments: PEG Tube Transfers Functional [place] Measure 0=Not Assessed/NA 4=Minimal Assistance 1=Total Assistance 5=Supervision or Setup 2=Maximal Assistance 6=Modified [place] 3=Moderate Assistance 7=Complete IndependenceIRFPAI Quality Coding Scale 6 Independent with activity with or without an assistive device 5 Patient requires set up or clean up by helper. Patient completes activity by themselves 4 Supervision or touching assist (CGA). Rumsey provide cues , steadying assist 3 The helper provides less than half the effort to complete the activity 2 The helper provides more than half the effort to complete the activity 1 Dependent. The helper does all the effort to complete an activity 7 Patient refused to complete or attempt activity 9 The patient did not perform the activity before the current illness or injury 88 Not attempted due to Medical conditions or safety concerns Transfers (B, C, W/C) (FIM): 4 Sit to/from Stand: 4 Bed to/from Chair: 4 cues for hand placement and to scoot out before standing Weight Bearing Right Lower Extremity: Right Weight Bearing/Tolerated Left Lower Extremity: Left Weight Bearing/Tolerated Gait Training Gait (FIM): 1 Distance: 15'x3 Gait Level of Assist: 3 Gait Persons Needed: 1 Gait Assistive Device: FWW wheelchair follow, mod assist for balance, very unsteady and uncoordinated steps Wheelchair Training Does the Pt Use a Wheelchair?: Yes Wheelchair (FIM): 2 Distance: 100' Wheelchair Level of Assist: 4 Type of Wheelchair: Manual veers to the right Exercises Seated Therapy Exercises: Ankle pumps, Hip flexion Seated Reps: 20 LAQ for 5 min alternating NuStep Minutes: 15 NuStep Workload: 5 Treatments transfer training, ambulation, wheelchair mobility, functional strengthening Assessment Current Status: Fair Progress improving ambulation and transfers PT Short Term Goals Short Term Goals Time Frame: Feb 25, 2017 Transfers (B,C,W/C) (FIM): 4 Gait (FIM): 1 Gait Distance Comment: 10' Gait Level of Assist: 3 Gait Assistive Device: Parallel Bars Wheelchair (FIM): 2 Wheelchair Distance: 100'x2 Wheelchair Level of Assist: 4 PT Curtain Supervisor Goals Curtain Supervisor Goals PT Fpc Goals Time Frame: Mar 11, 2017 Transfers (B,C,W/C) (FIM): 4 Sit to Lying (QC): 4 Lying-Sitting on Side/Bed(QC): 4 Sit to Stand (QC): 3 Rollin Roll Left to Right (QC): 4 Chair/[id number]-[id number] Xfer(QC): 3 Car Transfer (QC): 3 Does the Patient Walk: No and Walking Goal IS indicated Gait (FIM): 1 Distance: 20' Walk 10 feet (QC): 3 Gait Level of Assist: 4 Gait Assistive Device: FWW Does the Pt use WC or Scooter?: Yes Wheelchair (FIM): 4 Distance: 150' Wheelchair Level of Assist: 4 Wheel 50 feet with 2 turns (QC: 3 Stairs (FIM): 1 # of Steps: 1 1 Step (curb) (QC): 3 4 Steps (QC): 88 12 Steps (QC): 88 Stairs Level Of Assist: 4 Picking up an Object (QC): 88 PT Plan Problem List Problem List: Activity Tolerance, Functional Strength, Safety, Balance, Gait, Transfer, Bed Mobility Treatment/Plan Treatment Plan: Continue Plan of Care Treatment Plan: Bed Mobility, Concurrent Therapy, Education, Functional Activity Alicia, Functional Strength, Group Therapy, Gait, Safety, Therapeutic Exercise, Transfers Treatment Duration: Mar 11, 2017 Frequency: At least 5 of 7 days/Wk (IRF) Estimated Hrs Per Day: 1.5 hours per day Patient and/or Family Agrees t: Yes Safety Risks/Education Patient Education: Gait Training, Transfer Techniques, Correct Positioning, W/ C Management, Safety Issues Teaching Recipient: Patient Teaching Methods: Demonstration, Discussion Response to Teaching: Reinforcement Needed Time/GCodes Time In: 1100 Time Out: 1200 Total Billed Treatment Time: 60 Total Billed Treatment 1 visit GT 30' EX 15' AIMEEH 15' NGUYEN HUITRON PT Feb 23, 2017 12:00
--- NOTE | 2017-02-23 14:21 | Occupational Ther Daily Note ---
OT Current Status-Daily Note Subjective No pain reported. Appearance Pt. in bed. Agrees to shower. Mental Status/Objective Patient Orientation: Unable to Assess Functional [place] Measure 0=Not Assessed/NA 4=Minimal Assistance 1=Total Assistance 5=Supervision or Setup 2=Maximal Assistance 6=Modified [place] 3=Moderate Assistance 7=Complete [place] ADL-Treatment Functional [place] Measure 0=Not Assessed/NA 4=Minimal Assistance 1=Total Assistance 5=Supervision or Setup 2=Maximal Assistance 6=Modified [place] 3=Moderate Assistance 7=Complete IndependenceIRFPAI Quality Coding Scale 6 Independent with activity with or without an assistive device 5 Patient requires set up or clean up by helper. Patient completes activity by themselves 4 Supervision or touching assist (CGA). Bertrand provide cues , steadying assist 3 The helper provides less than half the effort to complete the activity 2 The helper provides more than half the effort to complete the activity 1 Dependent. The helper does all the effort to complete an activity 7 Patient refused to complete or attempt activity 9 The patient did not perform the activity before the current illness or injury 88 Not attempted due to Medical conditions or safety concerns Grooming (FIM): 3 (Pt. is able to brush teeth seated at sink in wheelchair, however noted that she did not do this thoroughly. Pt. also attempted to brush her hair, but did not brush it in back and so OT went over it for her.) Oral Hygiene (QC): 4 Bathing (FIM): 2 (Pt. was able to wash chest and under arms, upper thighs. However, noted that she continually lost her balance while seated on shower chair, and OT provided assistance to keep her upright.) Shower/Bathe Self (QC): 2 Upper Body (FIM): 2 (Max assist to don bra and mod assist needed to don shirt.) Upper Body Dressing (QC): 2 Lower Body Dressing (FIM): 2 (Pt. was able to help with all parts of donning brief and pants, but required max assist with this. Dependent to don shoes and socks.) Lower Body Dressing (QC): 1 On/Off Footwear (QC): 1 Transfers (B, C, W/C) (FIM): 2 (Max assist to stand with OT in front of her. Pt. is able to take steps and move to seat with assist.) Shower Transfer(FIM): 2 Other Treatment Pt. requires cues to remember tasks and sequence tasks. OT provided assist to shower and dress, and then pt. taken to therapy gym via wheelchair. Pt. completed string lacing activity with beads, as she states that opening packages and containers is difficult. This was noted this morning in shower as pt. just handed OT the soap container to open instead of opening herself. Pt. then practiced opening series of different types of bottles, including pill bottles and soap/shampoo bottles. Pt. is able to do this with increased time. Pt. is educated to attempt trying from now on instead of just handing the item to someone else to do. Pt. verbalizes understanding. Education OT Patient Education: Correct positioning, Exercise program, Modified ADL techniques, Progress toward Goal/Update tx plan, Purpose of tx/functional activities, Reviewed precautions, Rehab process, Transfer techniques Teaching Recipient: Patient Teaching Methods: Demonstration, Discussion Response to Teaching: Verbalize Understanding, Return Demonstration OT Short Term Goals Short Term Goals Time Frame: Mar 04, 2017 Eating(FIM): 5 Grooming(FIM): 5 Bathing(FIM): 4 Upper Body Dressing(FIM): 5 Lower Body Dressing(FIM): 4 Toileting(FIM): 4 Transfers (B,C,W/C) (FIM): 4 Toilet/Commode Transfer(FIM): 4 Shower Transfer(FIM): 3 Additional Short Term Goals: 1-Demonstrate ADL Tasks, 2-Verbalize Understanding , 3-ImproveStrength/Alicia 1=Demonstrate adherence to instructed precautions during ADL tasks. 2=Patient will verbalize/demonstrate understanding of assistive devices/ modifications for ADL. 3=Patient will improve strength/tolerance for activity to enable patient to perform ADL's. OT Business Mail Entry Clerk Goals Halfway Goals Time Frame: Mar 18, 2017 Eating (FIM): 6 Eating (QC): 6 Groomin Oral Hygiene (QC): 5 Bathing(FIM): 4 Shower/Bathe Self (QC): 4 Upper Body Dressing(FIM): 5 Upper Body Dressing (QC): 5 Lower Body Dressing(FIM): 5 Lower Body Dressing (QC): 5 On/Off Footwear (QC): 5 Toileting(FIM): 5 Toileting Hygiene (QC): 5 Transfers (B,C,W/C) (FIM): 5 Toilet/Commode Transfer(FIM): 5 Toilet/Commode Transfer (QC): 5 Shower Transfer(FIM): 4 Additional Goals: 1-Demonstrate ADL Tasks, 2-Verbalize Understanding, 3- ImproveStrength/Alicia 1=Demonstrate adherence to instructed precautions during ADL tasks. 2=Patient will verbalize/demonstrate understanding of assistive devices/ modifications for ADL. 3=Patient will improve strength/tolerance for activity to enable patient to perform ADL's. OT Education/Plan Problem List/Assessment Assessment: Decreased Activ Tolerance, Decreased Safety Aware, Decreased UE Strength, Dependent Transfers, Impaired Bed Mobility, Impaired Cognition, Impaired Coordination, Impaired Funct Balance, Impaired I ADL's, Impaired Self- Care Skills, Restricted Funct UE ROM, Visual-Perceptual Deficit Discharge Recommendations Plan/Recommendations: Continue POC Therapy D/C Recommendations: 24 hr Supervision Comment Discharge equipment and target placement to be determined. Treatment Plan/Plan of Care Treatment,Training & Education: Yes Patient would benefit from OT for education, treatment and training to promote independence in ADL's, mobility, safety and/or upper extremity function for ADL' s. Plan of Care: ADL Retraining, Caregiver Training, Cognitive Retraining, Functional Mobility, Group Exercise/Act as Ind, UE Funct Exercise/Act Treatment Duration: Mar 18, 2017 Frequency: At least 5 of 7 days/Wk (IRF) Estimated Hrs Per Day: 1.5 hours per day Agreement: Yes Rehab Potential: Guarded Time/GCodes Start Time: 10:00 Stop Time: 11:00 Total Time Billed (hr/min): 60 Billed Treatment Time 1, ADL x 45minutes, FA x 15minutes LIGIA CERRATO OT Feb 23, 2017 14:21
--- NOTE | 2017-02-23 14:35 | Occupational Ther Daily Note ---
OT Current Status-Daily Note Subjective Pt. states, "I'm just so tired, I don't want to get out of bed." Appearance Pt. in bed. Kitchen staff from downstairs in room. Pt. adamant that she is able to have thin liquids, however, orders still state that she must have nectar thick. Looked up speech therapy note for pt. and kitchen staff. Pt. is to still have nectar thick liquids until a swallow test can be properly performed tomorrow. Mental Status/Objective Functional [place] Measure 0=Not Assessed/NA 4=Minimal Assistance 1=Total Assistance 5=Supervision or Setup 2=Maximal Assistance 6=Modified [place] 3=Moderate Assistance 7=Complete [place] ADL-Treatment Functional [place] Measure 0=Not Assessed/NA 4=Minimal Assistance 1=Total Assistance 5=Supervision or Setup 2=Maximal Assistance 6=Modified [place] 3=Moderate Assistance 7=Complete IndependenceIRFPAI Quality Coding Scale 6 Independent with activity with or without an assistive device 5 Patient requires set up or clean up by helper. Patient completes activity by themselves 4 Supervision or touching assist (CGA). [place] provide cues , steadying assist 3 The helper provides less than half the effort to complete the activity 2 The helper provides more than half the effort to complete the activity 1 Dependent. The helper does all the effort to complete an activity 7 Patient refused to complete or attempt activity 9 The patient did not perform the activity before the current illness or injury 88 Not attempted due to Medical conditions or safety concerns Spoke with pt. and completed educated for safety and rehab goals. Pt. is educated about importance of adhering to swallow precautions until she can be fully cleared by the speech therapist. Pt. does verbalize understanding. OT asks pt. multiple questions regarding vision and safety concerns. Pt. states that she has no vision issues except for her "normal issues" with having to wear glasses. Pt. verbalizes understanding of participating, as she has already stated that she will not get up later with physical therapy. OT encourages her and educates her on importance of this. Pt. states that she wants to improve overall strength as well. Education OT Patient Education: Correct positioning, Exercise program, Progress toward Goal/Update tx plan, Purpose of tx/functional activities, Reviewed precautions, Rehab process, Safety issues Teaching Recipient: Patient Teaching Methods: Demonstration, Discussion Response to Teaching: Verbalize Understanding, Return Demonstration OT Short Term Goals Short Term Goals Time Frame: Mar 04, 2017 Eating(FIM): 5 Grooming(FIM): 5 Bathing(FIM): 4 Upper Body Dressing(FIM): 5 Lower Body Dressing(FIM): 4 Toileting(FIM): 4 Transfers (B,C,W/C) (FIM): 4 Toilet/Commode Transfer(FIM): 4 Shower Transfer(FIM): 3 Additional Short Term Goals: 1-Demonstrate ADL Tasks, 2-Verbalize Understanding , 3-ImproveStrength/Alicia 1=Demonstrate adherence to instructed precautions during ADL tasks. 2=Patient will verbalize/demonstrate understanding of assistive devices/ modifications for ADL. 3=Patient will improve strength/tolerance for activity to enable patient to perform ADL's. OT Server Security Administrator Goals Server Security Administrator Goals Time Frame: Mar 18, 2017 Eating (FIM): 6 Eating (QC): 6 Groomin Oral Hygiene (QC): 5 Bathing(FIM): 4 Shower/Bathe Self (QC): 4 Upper Body Dressing(FIM): 5 Upper Body Dressing (QC): 5 Lower Body Dressing(FIM): 5 Lower Body Dressing (QC): 5 On/Off Footwear (QC): 5 Toileting(FIM): 5 Toileting Hygiene (QC): 5 Transfers (B,C,W/C) (FIM): 5 Toilet/Commode Transfer(FIM): 5 Toilet/Commode Transfer (QC): 5 Shower Transfer(FIM): 4 Additional Goals: 1-Demonstrate ADL Tasks, 2-Verbalize Understanding, 3- ImproveStrength/Alicia 1=Demonstrate adherence to instructed precautions during ADL tasks. 2=Patient will verbalize/demonstrate understanding of assistive devices/ modifications for ADL. 3=Patient will improve strength/tolerance for activity to enable patient to perform ADL's. OT Education/Plan Problem List/Assessment Assessment: Decreased Activ Tolerance, Dependent Transfers, Impaired Bed Mobility, Impaired Cognition, Impaired Funct Balance, Impaired I ADL's, Impaired Self-Care Skills Discharge Recommendations Plan/Recommendations: Continue POC Therapy D/C Recommendations: 24 hr Supervision Treatment Plan/Plan of Care Treatment,Training & Education: Yes Patient would benefit from OT for education, treatment and training to promote independence in ADL's, mobility, safety and/or upper extremity function for ADL' s. Plan of Care: ADL Retraining, Caregiver Training, Cognitive Retraining, Functional Mobility, Group Exercise/Act as Ind, UE Funct Exercise/Act Treatment Duration: Mar 18, 2017 Frequency: At least 5 of 7 days/Wk (IRF) Estimated Hrs Per Day: 1.5 hours per day Agreement: Yes Rehab Potential: Guarded Time/GCodes Start Time: 13:40 Stop Time: 14:00 Total Time Billed (hr/min): 20 Billed Treatment Time 1, FA x 20minutes LIGIA CERRATO OT Feb 23, 2017 14:35
[2017-02-23] MEDS: APAP 325 MG/10.15 ML LIQ (TYLENOL) UDC PEG PRN ×2 (15:25→22:56)
--- NOTE | 2017-02-23 15:25 | Physical Therapy Daily Note ---
PT Daily Note-Current Subjective Agreeable to PT. Reports she is "wiped out". Transfers Functional [place] Measure 0=Not Assessed/NA 4=Minimal Assistance 1=Total Assistance 5=Supervision or Setup 2=Maximal Assistance 6=Modified [place] 3=Moderate Assistance 7=Complete IndependenceIRFPAI Quality Coding Scale 6 Independent with activity with or without an assistive device 5 Patient requires set up or clean up by helper. Patient completes activity by themselves 4 Supervision or touching assist (CGA). [place] provide cues , steadying assist 3 The helper provides less than half the effort to complete the activity 2 The helper provides more than half the effort to complete the activity 1 Dependent. The helper does all the effort to complete an activity 7 Patient refused to complete or attempt activity 9 The patient did not perform the activity before the current illness or injury 88 Not attempted due to Medical conditions or safety concerns Weight Bearing Right Lower Extremity: Right Weight Bearing/Tolerated Left Lower Extremity: Left Weight Bearing/Tolerated Treatments Sup to sit EOB with min assist and skilled VC's for hand placment and tactile cues to right self. Sat EOB with sB-CGA due to unsteady seating posture. Sit to stand and SPT x 5 reps with FWW with min assist to stand and close CGA to turn to transfer. Pt transferred on/off commode and required max assist for clothing. Pt then transferred on/off the nu step. Nu step x 14 minutes to work on functional LE strength and activity tolerance to enhance her functional mobility. Pt in bed post treatment, requiring min assist to lift right LE into bed. Pt positioned self in bed with cues to sequence the task and encouragement to do so herself; she wanted this therapist to use the bed pad and move her but educated pt on the need for her to do herself. needs met post treatment. Assessment Current Status: Good Progress Unsteady with transfer and was retropulsive at times with initial standing. Needs cues / encouragement to do for herself. PT Short Term Goals Short Term Goals Time Frame: Feb 25, 2017 Transfers (B,C,W/C) (FIM): 4 Gait (FIM): 1 Gait Distance Comment: 10' Gait Level of Assist: 3 Gait Assistive Device: Parallel Bars Wheelchair (FIM): 2 Wheelchair Distance: 100' Wheelchair Level of Assist: 4 PT Retirement Goals Retirement Goals PT Retirement Goals Time Frame: Mar 11, 2017 Transfers (B,C,W/C) (FIM): 4 Sit to Lying (QC): 4 Lying-Sitting on Side/Bed(QC): 4 Sit to Stand (QC): 3 Rollin Roll Left to Right (QC): 4 Chair/Szr-zy-Beldk Xfer(QC): 3 Car Transfer (QC): 3 Does the Patient Walk: No and Walking Goal IS indicated Gait (FIM): 1 Distance: 20' Walk 10 feet (QC): 3 Gait Level of Assist: 4 Gait Assistive Device: FWW Does the Pt use WC or Scooter?: Yes Wheelchair (FIM): 4 Distance: 150' Wheelchair Level of Assist: 4 Wheel 50 feet with 2 turns (QC: 3 Stairs (FIM): 1 # of Steps: 1 1 Step (curb) (QC): 3 4 Steps (QC): 88 12 Steps (QC): 88 Stairs Level Of Assist: 4 Picking up an Object (QC): 88 PT Plan Problem List Problem List: Activity Tolerance, Functional Strength, Safety, Balance, Gait, Transfer Treatment/Plan Treatment Plan: Continue Plan of Care Treatment Plan: Bed Mobility, Concurrent Therapy, Education, Functional Activity Alicia, Functional Strength, Group Therapy, Gait, Safety, Therapeutic Exercise, Transfers Treatment Duration: Mar 11, 2017 Frequency: At least 5 of 7 days/Wk (IRF) Estimated Hrs Per Day: 1.5 hours per day Patient and/or Family Agrees t: Yes Safety Risks/Education Patient Education: Transfer Techniques, Safety Issues Teaching Recipient: Patient Teaching Methods: Demonstration, Discussion Response to Teaching: Reinforcement Needed Discharge Recommendations Therapy D/C Recommendations: Physical Therapy Home Care Time/GCodes Time In: 1420 Time Out: 1455 Total Billed Treatment Time: 35 Total Billed Treatment visit EX 14 FA 21 JUANI MARIN PT Feb 23, 2017 15:25
--- NOTE | 2017-02-23 16:04 | PM & R (SOAP) Progress Note ---
Subjective Time Seen by Provider: 15:25 Subjective/Events-last exam Patient was seen in her room this afternoon with her spouse Patient to [facility] DR Cantu on Thursday the for Radiation oncology consult Patient and spouse asking about removal of Peg tube but RN indicates that patient still wants meds per tube even though they can be crushed,Patient min assist for transfers Review of Systems Neurological: Weakness Objective Exam Last Set of Vital Signs Vital Signs Date Time Temp Pulse Resp B/P (MAP) Pulse Ox O2 Delivery O2 Flow Rate FiO2 02/23/17 09:20 Room Air 02/23/17 05:16 97.4 71 18 107/70 (82) 97 Capillary Refill : I&O Intake and Output 02/23/17 00:00 Intake Total 1450 ml Output Total 1450 ml Balance 0 ml Intake Oral 1250 ml Tube Feeding 200 ml Output Urine Total 1450 ml # Voids 3 General: Alert, Oriented X3, Cooperative, No Acute Distress HEENT: PERRLA, EOMI, Mucous Memb Moist/[place], Other (crani site with sutures inplace healing well) Neck: Supple, No JVD Lungs: Clear to Auscultation Heart: Regular Rate Abdomen: Normal Bowel Sounds, Soft, No Tenderness, Other (Peg in place) Extremities: No Edema Neuro: Other (weakness left > rt) Assessment/Plan Assessment 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
[2017-02-23 18:21] VITALS: BP 120/74
[2017-02-23] MEDS: ATORVASTATIN 80 MG (LIPITOR) TABLET PEG SCH (21:32)
[2017-02-24 05:02] VITALS: BP 116/76
[2017-02-24] MEDS: CYANOCOBALAMIN 500 MCG TAB (VITAMIN B-12) PEG SCH (05:59)
[2017-02-24] MEDS: PANTOPRAZOLE 2 MG/ML LIQUID 200 ML (PROTONIX) PEG SCH ×3 (05:59)
--- NOTE | 2017-02-24 07:50 | Progress Note (SOAP) ---
Subjective Time Seen by Provider: 07:50 Subjective/Events-last exam glioblastoma. Patient pleasant today. Patient told to take her medicines orally. Patient has no complaints Objective Exam Vital Signs Date Time Temp Pulse Resp B/P (MAP) Pulse Ox O2 Delivery O2 Flow Rate FiO2 02/24/17 05:02 97.9 69 18 116/76 (89) 96 Room Air 02/23/17 20:45 Room Air 02/23/17 18:21 98.2 69 18 120/74 (89) 95 Room Air 02/23/17 09:20 Room Air I & O 02/24/17 07:00 Intake Total 1920 ml Output Total 750 ml Balance 1170 ml Capillary Refill : General Appearance: No Apparent Distress, WD/WN Assessment/Plan Assessment/Plan Assess & Plan/Chief Complaint glioblastoma. Hypertension. Hyperlipidemia. GERD. Viral encephalitis. Chronic constipation. Vitamin B12 deficiency. Vitamin D deficiency. . 02/19/17. Glioblastoma. Hypertension. Hyperlipidemia. GERD Vitamin B12 deficiency. Vitamin D deficiency. Patient feeling better this morning. . Glioblastoma. Hypertension. Hyperlipidemia. GERD. Patient has trouble with thought process.. . 03/08. Glioblastoma. Hypertension under control. Hyperlipidemia. GERD. Patient's confusion is less. . 02/24/17. Glioblastoma. Hypertension. Hyperlipidemia. GERD. Patient talked better today. Patient to take oral medications Clinical Quality Measures DVT/VTE Risk/Contraindication: Risk Factor Score Per Nursin RFS Level Per Nursing on Admit: 4+=Very High GANESH HEADLEY DO Feb 24, 2017 07:50
[2017-02-24] MEDS: FAMOTIDINE 20 MG (PEPCID) TABLET PEG SCH (08:02)
[2017-02-24] MEDS: amLODIPine 5 MG (NORVASC) TAB PEG SCH (08:02)
[2017-02-24] MEDS: ATENOLOL 50 MG (TENORMIN) TAB PEG SCH (08:02)
[2017-02-24] MEDS: DEXAMETHASONE 4 MG TAB (DECADRON) PEG SCH ×2 (08:02→21:28)
[2017-02-24] MEDS: LEVETIRACETAM 500 MG/ 5 ML UDC ORAL SOLN (KEPPRA) PEG SCH ×2 (08:02→21:28)
[2017-02-24] MEDS: ENOXAPARIN 40 MG/0.4 ML (LOVENOX) SYR SC SCH (08:02)
--- NOTE | 2017-02-24 08:45 | Physical Therapy Daily Note ---
PT Daily Note-Current Subjective Patient in bed pre tx, reluctantly agrees to PT, needs to get dressed and has to use the restroom. No complaints of pain. Appearance Patient in wheelchair at bedside post tx, has nurse call, phone, tray, all needs met. Has ST right after PT. Mental Status Patient Orientation: Person, Place, Situation Attachments: PEG Tube Transfers Functional [place] Measure 0=Not Assessed/NA 4=Minimal Assistance 1=Total Assistance 5=Supervision or Setup 2=Maximal Assistance 6=Modified [place] 3=Moderate Assistance 7=Complete IndependenceIRFPAI Quality Coding Scale 6 Independent with activity with or without an assistive device 5 Patient requires set up or clean up by helper. Patient completes activity by themselves 4 Supervision or touching assist (CGA). [place] provide cues , steadying assist 3 The helper provides less than half the effort to complete the activity 2 The helper provides more than half the effort to complete the activity 1 Dependent. The helper does all the effort to complete an activity 7 Patient refused to complete or attempt activity 9 The patient did not perform the activity before the current illness or injury 88 Not attempted due to Medical conditions or safety concerns Transfers (B, C, W/C) (FIM): 4 Scootin Rollin Supine to/from Sit: 5 Sit to/from Stand: 4 Bed to/from Chair: 4 sit to stand and stand pivot transfer with min assist, needs cues for hand placement Weight Bearing Right Lower Extremity: Right Weight Bearing/Tolerated Left Lower Extremity: Left Weight Bearing/Tolerated Gait Training Gait (FIM): 1 Distance: 10'x2 Gait Level of Assist: 4 Gait Persons Needed: 1 Gait Assistive Device: FWW min assist for balance, very weak hip musculature and uncoordinated steps Wheelchair Training Does the Pt Use a Wheelchair?: Yes Wheelchair (FIM): 2 Distance: 100'x2 Wheelchair Level of Assist: 4 Type of Wheelchair: Manual min assist with turning, tends to veer to the right side Exercises LAQ alternating for 5 min, mini-squats x15, heel raises x20, marching x15 each side Treatments bed mobility and transfers, ambulation, functional strengthening, patient was dressed and toileted Assessment Current Status: Poor Progress Patient's weak hip musculature and poor motivation make progress very slow PT Short Term Goals Short Term Goals Time Frame: Feb 25, 2017 Transfers (B,C,W/C) (FIM): 4 Gait (FIM): 1 Gait Distance Comment: 10' Gait Level of Assist: 3 Gait Assistive Device: Parallel Bars Wheelchair (FIM): 2 Wheelchair Distance: 100' Wheelchair Level of Assist: 4 PT Alf Goals Concrete Plant Laborer Goals PT Alf Goals Time Frame: Mar 11, 2017 Transfers (B,C,W/C) (FIM): 4 Sit to Lying (QC): 4 Lying-Sitting on Side/Bed(QC): 4 Sit to Stand (QC): 3 Rollin Roll Left to Right (QC): 4 Chair/Ptb-vt-Sbgdm Xfer(QC): 3 Car Transfer (QC): 3 Does the Patient Walk: No and Walking Goal IS indicated Gait (FIM): 1 Distance: 20' Walk 10 feet (QC): 3 Gait Level of Assist: 4 Gait Assistive Device: FWW Does the Pt use WC or Scooter?: Yes Wheelchair (FIM): 4 Distance: 150' Wheelchair Level of Assist: 4 Wheel 50 feet with 2 turns (QC: 3 Stairs (FIM): 1 # of Steps: 1 1 Step (curb) (QC): 3 4 Steps (QC): 88 12 Steps (QC): 88 Stairs Level Of Assist: 4 Picking up an Object (QC): 88 PT Plan Problem List Problem List: Activity Tolerance, Functional Strength, Safety, Balance, Gait, Transfer, Bed Mobility Treatment/Plan Treatment Plan: Continue Plan of Care Treatment Plan: Bed Mobility, Concurrent Therapy, Education, Functional Activity Alicia, Functional Strength, Group Therapy, Gait, Safety, Therapeutic Exercise, Transfers Treatment Duration: Mar 11, 2017 Frequency: At least 5 of 7 days/Wk (IRF) Estimated Hrs Per Day: 1.5 hours per day Patient and/or Family Agrees t: Yes Safety Risks/Education Patient Education: Gait Training, Transfer Techniques, Correct Positioning, W/ C Management, Safety Issues Teaching Recipient: Patient Teaching Methods: Demonstration, Discussion Response to Teaching: Reinforcement Needed Time/GCodes Time In: 800 Time Out: 845 Total Billed Treatment Time: 45 Total Billed Treatment 1 visit GT 10' EX 15' FA 20' NGUYEN HUITRON PT Feb 24, 2017 08:45
--- NOTE | 2017-02-24 08:52 | PM & R (SOAP) Progress Note ---
Subjective Time Seen by Provider: 07:50 Subjective/Events-last exam Patient was seen in her room this AM Case discussed with Nursing Patient has been seen by [facility] staff last week and to see DR Cantu tomorrow re follow -up Radiation therapy,Patient min assist for transfers Objective Exam Last Set of Vital Signs Vital Signs Date Time Temp Pulse Resp B/P (MAP) Pulse Ox O2 Delivery O2 Flow Rate FiO2 02/24/17 05:02 97.9 69 18 116/76 (89) 96 Room Air Capillary Refill : I&O Intake and Output 02/24/17 00:00 Intake Total 1610 ml Output Total 1500 ml Balance 110 ml Intake Oral 1060 ml Tube Feeding 300 ml Other 250 ml Output Urine Total 1500 ml # Voids 4 General: Alert, Oriented X3, Cooperative, No Acute Distress HEENT: PERRLA, EOMI, Mucous Memb Moist/[place], Other (crani site with sutures inplace healing well) Neck: Supple, No JVD Lungs: Clear to Auscultation Heart: Regular Rate Abdomen: Normal Bowel Sounds, Soft, No Tenderness, Other (Peg in place) Extremities: No Edema Neuro: Other (weakness left > rt) Assessment/Plan Assessment 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
--- NOTE | 2017-02-24 11:02 | Speech Therapy Daily Note ---
Speech Daily Progress Note Subjective Date Seen by Provider: Feb 24, 2017 Time Seen by Provider: 08:45 The patient was seated upright in wheelchair upon entrance. The patient greeted the clinician and was agreeable to participation in the dysphagia treatment session. At this time, the clinician has not received a returned call from scheduling re : Modified Barium Swallow. The clinician contacted scheduling following this appointment and finalized an appointment time for 02/25/2017 at 10:00 for a modified barium swallow. The information was shared with the patient and her . The patient continues to receive thin liquids on her meal trays regardless of order stating "nectar-thick liquids." The clinician has discussed this recommendation several times with the patient and her , however, they continue to demonstrate confusion. An in depth conversation occurred on this date re: items the patient is able to consume (mechanical soft with nectar- thick liquids). The patient verbalized comprehension and the patient's stated his concern as the patient has been able to order thin liquids for the past several days. Following further investigation, the call center stated the modifier was not carrying over. The diet was extensively checked on several occasions by the patient's RN to ensure accuracy. The patient and patient's verbalized displeasure with her inability to order several menu items- chicken fingers, turkey, orange sherbet. The reasoning behind the restriction was discussed again (orange sherbet melts into a thin liquid). To allow chicken fingers, the clinician agreed to place the patient on a regular diet with nectar -thickened liquids IF the patient agreed to cut all solid foods into small, bite size pieces before consumption. The patient and verbally agreed to this recommendation. Objective Oropharyngeal Strengthening Exercises: The patient demonstrates fair to good accuracy with all dysphagia exercises following direct modeling and encouragement from the clinician. Five repetitions of each exercise were performed. Assessment Assessment Current Status: Fair Progress Treatment Plan Continue Plan of Care Communication Comprehension: 3 Expression: 3 Social Cognition Social Interaction: 4 Problem Solvin Memory: 3 Speech Short Term Goals Short Term Goals Short Term Goals 1. The patient will demonstrate oropharyngeal swallowing exercises with 80% accuracy, independently. 2. The patient will recall and demonstrate three functional memory strategies for use at home with mild clinician verbal cueing. Time Frame-STG: Two Weeks Speech Detention Goals Multimedia Services Coordinator Goals 1. The patient will demonstrate the least restrictive diet without signs/ symptoms of aspiration or laryngeal penetration. 2. The patient will demonstrate improved functional memory and use of memory strategies for increased function and safety at home. Time Frame: Three Weeks Speech-Plan Treatment Plan Speech Therapy Treatment Plan: Continue Plan of Care Continue skilled speech pathology to target swallowing safety. Treatment Duration: Mar 12, 2017 Frequency: Modified Program (IRF) (Four to Five Times per Week) Estimated Hrs Per Day: .5 hour per day Rehab Potential: Guarded Safety Risks/Education Teaching Recipient: Patient, Significant Other Teaching Methods: Discussion Response to Teaching: Verbalize Understanding, Reinforcement Needed Education Topics Provided: Diet Consistency Recommendation Time Speech Therapy Time In: 08:45 Speech Therapy Time Out: 09:15 Total Billed Time: 30 Billed Treatment Time 1, ALTAF NORRIS Feb 24, 2017 11:02
[2017-02-24] MEDS ORDERED: ACETAMINOPHEN 325 MG TABLET/CAPLET (TYLENOL) ONE (13:10)
[2017-02-24] MEDS: ACETAMINOPHEN 325 MG TABLET/CAPLET (TYLENOL) PO PRN ×2 (13:17→22:46)
--- NOTE | 2017-02-24 14:20 | Physical Therapy Daily Note ---
PT Daily Note-Current Subjective Patient in wheelchair at bedside pre tx, agrees to PT, has 9/10 pain in her head. Appearance Patient in bed post tx with nurse call, kennedy, in the room. Mental Status Patient Orientation: Person, Place, Situation Attachments: PEG Tube Transfers Functional [place] Measure 0=Not Assessed/NA 4=Minimal Assistance 1=Total Assistance 5=Supervision or Setup 2=Maximal Assistance 6=Modified [place] 3=Moderate Assistance 7=Complete IndependenceIRFPAI Quality Coding Scale 6 Independent with activity with or without an assistive device 5 Patient requires set up or clean up by helper. Patient completes activity by themselves 4 Supervision or touching assist (CGA). [place] provide cues , steadying assist 3 The helper provides less than half the effort to complete the activity 2 The helper provides more than half the effort to complete the activity 1 Dependent. The helper does all the effort to complete an activity 7 Patient refused to complete or attempt activity 9 The patient did not perform the activity before the current illness or injury 88 Not attempted due to Medical conditions or safety concerns Transfers (B, C, W/C) (FIM): 4 Scootin Rollin Supine to/from Sit: 4 Sit to/from Stand: 4 Bed to/from Chair: 4 Weight Bearing Right Lower Extremity: Right Weight Bearing/Tolerated Left Lower Extremity: Left Weight Bearing/Tolerated Wheelchair Training Does the Pt Use a Wheelchair?: Yes Wheelchair (FIM): 2 Distance: 100' Wheelchair Level of Assist: 4 Type of Wheelchair: Manual Exercises NuStep Minutes: 15 NuStep Workload: 4 Treatments functional strengthening, wheelchair mobility, transfers and bed mobility Assessment Current Status: Poor Progress no change in mobility PT Short Term Goals Short Term Goals Time Frame: Feb 25, 2017 Transfers (B,C,W/C) (FIM): 4 Gait (FIM): 1 Gait Distance Comment: 10' Gait Level of Assist: 3 Gait Assistive Device: Parallel Bars Wheelchair (FIM): 2 Wheelchair Distance: 100'x2 Wheelchair Level of Assist: 4 PT Elevator Worker Goals [facility] Goals PT Elevator Worker Goals Time Frame: Mar 11, 2017 Transfers (B,C,W/C) (FIM): 4 Sit to Lying (QC): 4 Lying-Sitting on Side/Bed(QC): 4 Sit to Stand (QC): 3 Rollin Roll Left to Right (QC): 4 Chair/Dpy-kg-Vhzcw Xfer(QC): 3 Car Transfer (QC): 3 Does the Patient Walk: No and Walking Goal IS indicated Gait (FIM): 1 Distance: 20' Walk 10 feet (QC): 3 Gait Level of Assist: 4 Gait Assistive Device: FWW Does the Pt use WC or Scooter?: Yes Wheelchair (FIM): 4 Distance: 150' Wheelchair Level of Assist: 4 Wheel 50 feet with 2 turns (QC: 3 Stairs (FIM): 1 # of Steps: 1 1 Step (curb) (QC): 3 4 Steps (QC): 88 12 Steps (QC): 88 Stairs Level Of Assist: 4 Picking up an Object (QC): 88 PT Plan Problem List Problem List: Activity Tolerance, Functional Strength, Safety, Balance, Gait, Transfer, Bed Mobility, ROM Treatment/Plan Treatment Plan: Continue Plan of Care Treatment Plan: Bed Mobility, Concurrent Therapy, Education, Functional Activity Alicia, Functional Strength, Group Therapy, Gait, Safety, Therapeutic Exercise, Transfers Treatment Duration: Mar 11, 2017 Frequency: At least 5 of 7 days/Wk (IRF) Estimated Hrs Per Day: 1.5 hours per day Patient and/or Family Agrees t: Yes Safety Risks/Education Patient Education: Transfer Techniques, Correct Positioning, W/C Management, Safety Issues Teaching Recipient: Patient Teaching Methods: Demonstration, Discussion Response to Teaching: Reinforcement Needed Time/GCodes Time In: 1345 Time Out: 1415 Total Billed Treatment Time: 30 Total Billed Treatment 1 visit EX 15' WCH 15' NGUYEN HUITRON PT Feb 24, 2017 14:20
--- NOTE | 2017-02-24 14:41 | Occupational Ther Daily Note ---
OT Current Status-Daily Note Subjective No pain reported. Appearance Pt. is sitting up on BSC with spouse present. Declines showering or changing clothing. Mental Status/Objective Patient Orientation: Person, Confused Functional [place] Measure 0=Not Assessed/NA 4=Minimal Assistance 1=Total Assistance 5=Supervision or Setup 2=Maximal Assistance 6=Modified [place] 3=Moderate Assistance 7=Complete [place] ADL-Treatment Functional [place] Measure 0=Not Assessed/NA 4=Minimal Assistance 1=Total Assistance 5=Supervision or Setup 2=Maximal Assistance 6=Modified [place] 3=Moderate Assistance 7=Complete IndependenceIRFPAI Quality Coding Scale 6 Independent with activity with or without an assistive device 5 Patient requires set up or clean up by helper. Patient completes activity by themselves 4 Supervision or touching assist (CGA). [place] provide cues , steadying assist 3 The helper provides less than half the effort to complete the activity 2 The helper provides more than half the effort to complete the activity 1 Dependent. The helper does all the effort to complete an activity 7 Patient refused to complete or attempt activity 9 The patient did not perform the activity before the current illness or injury 88 Not attempted due to Medical conditions or safety concerns Grooming (FIM): 3 (Pt. required mod assist to brush hair.) Lower Body Dressing (FIM): 1 (Dependent to don shoes and socks.) Lower Body Dressing (QC): 1 On/Off Footwear (QC): 1 Toileting (FIM): 1 (Pt. required assist of one person to help her stand, and assist of another to cleanse rear sanjuana area.) Toileting Hygiene (QC): 1 Transfers (B, C, W/C) (FIM): 2 Toilet/Commode Transfer (FIM): 2 Toilet Transfer (QC): 2 Other Treatment Pt. transferred to wheelchair. Went to therapy gym. Attempted to have pt. self propel. Pt. had difficulty with running into items on right side. Required tactile cues to be corrected in wheelchair. Went to gym and participated in fine motor skills and strengthening. Pt. donned 1 lb. wrist weights and completed therapy peg task. Noted that pt. had difficulty pushing pegs deep into foam board. States, "this is hard." Continued doing this but eventually slowed and reported that it was too difficult with weights on. Doffed weights and put more in, but pt. very slow with this task. Pt. was then given small beads to string and did this with no difficulty. Seems to do okay with fine motor skills, but does demonstrate decreased hand strength at times. Pt. states that she has still been squeezing her foam sponge for increased overall strength. Went back to room and all needs met. Education OT Patient Education: Correct positioning, Exercise program, Modified ADL techniques, Progress toward Goal/Update tx plan, Purpose of tx/functional activities, Reviewed precautions, Rehab process, Transfer techniques Teaching Recipient: Patient Teaching Methods: Demonstration, Discussion Response to Teaching: Verbalize Understanding, Return Demonstration OT Short Term Goals Short Term Goals Time Frame: Mar 04, 2017 Eating(FIM): 5 Grooming(FIM): 5 Bathing(FIM): 4 Upper Body Dressing(FIM): 5 Lower Body Dressing(FIM): 4 Toileting(FIM): 4 Transfers (B,C,W/C) (FIM): 4 Toilet/Commode Transfer(FIM): 4 Shower Transfer(FIM): 3 Additional Short Term Goals: 1-Demonstrate ADL Tasks, 2-Verbalize Understanding , 3-ImproveStrength/Alicia 1=Demonstrate adherence to instructed precautions during ADL tasks. 2=Patient will verbalize/demonstrate understanding of assistive devices/ modifications for ADL. 3=Patient will improve strength/tolerance for activity to enable patient to perform ADL's. OT Snf Goals Snf Goals Time Frame: Mar 18, 2017 Eating (FIM): 6 Eating (QC): 6 Groomin Oral Hygiene (QC): 5 Bathing(FIM): 4 Shower/Bathe Self (QC): 4 Upper Body Dressing(FIM): 5 Upper Body Dressing (QC): 5 Lower Body Dressing(FIM): 5 Lower Body Dressing (QC): 5 On/Off Footwear (QC): 5 Toileting(FIM): 5 Toileting Hygiene (QC): 5 Transfers (B,C,W/C) (FIM): 5 Toilet/Commode Transfer(FIM): 5 Toilet/Commode Transfer (QC): 5 Shower Transfer(FIM): 4 Additional Goals: 1-Demonstrate ADL Tasks, 2-Verbalize Understanding, 3- ImproveStrength/Alicia 1=Demonstrate adherence to instructed precautions during ADL tasks. 2=Patient will verbalize/demonstrate understanding of assistive devices/ modifications for ADL. 3=Patient will improve strength/tolerance for activity to enable patient to perform ADL's. OT Education/Plan Problem List/Assessment Assessment: Decreased Activ Tolerance, Decreased UE Strength, Dependent Transfers, Impaired Bed Mobility, Impaired Cognition, Impaired Coordination, Impaired Funct Balance, Impaired I ADL's, Impaired Self-Care Skills, Restricted Funct UE ROM Discharge Recommendations Plan/Recommendations: Continue POC Therapy D/C Recommendations: Home w/ Family Support Treatment Plan/Plan of Care Treatment,Training & Education: Yes Patient would benefit from OT for education, treatment and training to promote independence in ADL's, mobility, safety and/or upper extremity function for ADL' s. Plan of Care: ADL Retraining, Caregiver Training, Cognitive Retraining, Functional Mobility, Group Exercise/Act as Ind, UE Funct Exercise/Act Treatment Duration: Mar 18, 2017 Frequency: At least 5 of 7 days/Wk (IRF) Estimated Hrs Per Day: 1.5 hours per day Agreement: Yes Rehab Potential: Guarded Time/GCodes Start Time: 11:15 Stop Time: 12:00 Total Time Billed (hr/min): 45 Billed Treatment Time 1, FA x 3 LIGIA CERRATO OT Feb 24, 2017 14:41
--- NOTE | 2017-02-24 14:55 | Occupational Ther Daily Note ---
OT Current Status-Daily Note Subjective Pt. states that she has a headache. States that she will go to OT, but that she isn't doing "that PT." OT explained to pt. that she really needs to participate to get stronger. Pt. states, "oh okay." Appearance Pt. was still up in wheelchair from earlier in day. Spouse in room. Pt. agrees to work with OT. Mental Status/Objective Patient Orientation: Person, Unable to Assess Functional [place] Measure 0=Not Assessed/NA 4=Minimal Assistance 1=Total Assistance 5=Supervision or Setup 2=Maximal Assistance 6=Modified [place] 3=Moderate Assistance 7=Complete [place] ADL-Treatment Functional [place] Measure 0=Not Assessed/NA 4=Minimal Assistance 1=Total Assistance 5=Supervision or Setup 2=Maximal Assistance 6=Modified [place] 3=Moderate Assistance 7=Complete IndependenceIRFPAI Quality Coding Scale 6 Independent with activity with or without an assistive device 5 Patient requires set up or clean up by helper. Patient completes activity by themselves 4 Supervision or touching assist (CGA). [place] provide cues , steadying assist 3 The helper provides less than half the effort to complete the activity 2 The helper provides more than half the effort to complete the activity 1 Dependent. The helper does all the effort to complete an activity 7 Patient refused to complete or attempt activity 9 The patient did not perform the activity before the current illness or injury 88 Not attempted due to Medical conditions or safety concerns Other Treatment Pt. attempted to self propel wheelchair to gym. Pt. had difficulty, and was increasingly becoming more tired. Went to gym. Completed fine motor tasks to increase overall strength and independence. Pt. able to complete therapy clothespin task and pinch pin tasks. Pt. completed with increased time needed due to fatigue. Pt. went back to room. All needs met in room. Pt. up in chair with spouse in room. Education OT Patient Education: Correct positioning, Exercise program, Modified ADL techniques, Progress toward Goal/Update tx plan, Purpose of tx/functional activities, Reviewed precautions, Rehab process, Transfer techniques Teaching Recipient: Patient Teaching Methods: Demonstration, Discussion Response to Teaching: Verbalize Understanding, Return Demonstration OT Short Term Goals Short Term Goals Time Frame: Mar 04, 2017 Eating(FIM): 5 Grooming(FIM): 5 Bathing(FIM): 4 Upper Body Dressing(FIM): 5 Lower Body Dressing(FIM): 4 Toileting(FIM): 4 Transfers (B,C,W/C) (FIM): 4 Toilet/Commode Transfer(FIM): 4 Shower Transfer(FIM): 3 Additional Short Term Goals: 1-Demonstrate ADL Tasks, 2-Verbalize Understanding , 3-ImproveStrength/Alicia 1=Demonstrate adherence to instructed precautions during ADL tasks. 2=Patient will verbalize/demonstrate understanding of assistive devices/ modifications for ADL. 3=Patient will improve strength/tolerance for activity to enable patient to perform ADL's. OT Tableau Report Developer Goals Nursing Home Goals Time Frame: Mar 18, 2017 Eating (FIM): 6 Eating (QC): 6 Groomin Oral Hygiene (QC): 5 Bathing(FIM): 4 Shower/Bathe Self (QC): 4 Upper Body Dressing(FIM): 5 Upper Body Dressing (QC): 5 Lower Body Dressing(FIM): 5 Lower Body Dressing (QC): 5 On/Off Footwear (QC): 5 Toileting(FIM): 5 Toileting Hygiene (QC): 5 Transfers (B,C,W/C) (FIM): 5 Toilet/Commode Transfer(FIM): 5 Toilet/Commode Transfer (QC): 5 Shower Transfer(FIM): 4 Additional Goals: 1-Demonstrate ADL Tasks, 2-Verbalize Understanding, 3- ImproveStrength/Alicia 1=Demonstrate adherence to instructed precautions during ADL tasks. 2=Patient will verbalize/demonstrate understanding of assistive devices/ modifications for ADL. 3=Patient will improve strength/tolerance for activity to enable patient to perform ADL's. OT Education/Plan Problem List/Assessment Assessment: Decreased Activ Tolerance, Decreased Safety Aware, Decreased UE Strength, Dependent Transfers, Impaired Bed Mobility, Impaired Cognition, Impaired Coordination, Impaired Funct Balance, Impaired I ADL's, Impaired Self- Care Skills, Restricted Funct UE ROM, Visual-Perceptual Deficit Discharge Recommendations Plan/Recommendations: Continue POC Therapy D/C Recommendations: 24 hr Supervision Treatment Plan/Plan of Care Treatment,Training & Education: Yes Patient would benefit from OT for education, treatment and training to promote independence in ADL's, mobility, safety and/or upper extremity function for ADL' s. Plan of Care: ADL Retraining, Caregiver Training, Cognitive Retraining, Functional Mobility, Group Exercise/Act as Ind, UE Funct Exercise/Act Treatment Duration: Mar 18, 2017 Frequency: At least 5 of 7 days/Wk (IRF) Estimated Hrs Per Day: 1.5 hours per day Agreement: Yes Rehab Potential: Guarded Time/GCodes Start Time: 13:00 Stop Time: 13:45 Total Time Billed (hr/min): 45 Billed Treatment Time 1, FA x 30minutes, ADL x 15minutes LIGIA CERRATO OT Feb 24, 2017 14:55
[2017-02-24 18:51] VITALS: BP 105/69
[2017-02-24] MEDS: ATORVASTATIN 80 MG (LIPITOR) TABLET PEG SCH (21:35)
[2017-02-25] MEDS: PANTOPRAZOLE 2 MG/ML LIQUID 200 ML (PROTONIX) PEG SCH ×3 (06:07)
[2017-02-25] MEDS: CYANOCOBALAMIN 500 MCG TAB (VITAMIN B-12) PEG SCH (06:07)
[2017-02-25 06:11] VITALS: BP 100/64
--- NOTE | 2017-02-25 07:52 | Progress Note (SOAP) ---
Subjective Time Seen by Provider: 07:50 Subjective/Events-last exam glioblastoma. Patient to have modified barium swallow today. Patient talking better unable to finish her thoughts. Patient to see Dr. Jeffery today at 1 p.m.4 radiation treatments Objective Exam Vital Signs Date Time Temp Pulse Resp B/P (MAP) Pulse Ox O2 Delivery O2 Flow Rate FiO2 02/25/17 06:11 97.3 61 16 100/64 (76) 95 Room Air 02/24/17 20:44 Room Air 02/24/17 18:51 98.4 66 14 105/69 (81) 97 Room Air 02/24/17 09:11 Room Air I & O 02/25/17 07:00 Intake Total 1540 ml Balance 1540 ml Capillary Refill : General Appearance: No Apparent Distress, WD/WN HEENT: Normal ENT Inspection Neck: Full Range of Motion, Normal Inspection Respiratory: No Accessory Muscle Use, No Respiratory Distress Cardiovascular: Regular Rate, Rhythm, No Murmur Assessment/Plan Assessment/Plan Assess & Plan/Chief Complaint glioblastoma. Hypertension. Hyperlipidemia. GERD. Viral encephalitis. Chronic constipation. Vitamin B12 deficiency. Vitamin D deficiency. . 02/19/17. Glioblastoma. Hypertension. Hyperlipidemia. GERD Vitamin B12 deficiency. Vitamin D deficiency. Patient feeling better this morning. . Glioblastoma. Hypertension. Hyperlipidemia. GERD. Patient has trouble with thought process.. . 03/08. Glioblastoma. Hypertension under control. Hyperlipidemia. GERD. Patient's confusion is less. . 02/24/17. Glioblastoma. Hypertension. Hyperlipidemia. GERD. Patient talked better today. Patient to take oral medications. . 02/25/17. Glioblastoma. Hypertension. Hyperlipidemia. GERD area Patient have modified barium swallow today. Patient to see a radiation oncologist at 1 p.m. today. Patient voices no complaints Clinical Quality Measures DVT/VTE Risk/Contraindication: Risk Factor Score Per Nursin RFS Level Per Nursing on Admit: 4+=Very High GANESH HEADLEY DO Feb 25, 2017 07:51
[2017-02-25] MEDS: DEXAMETHASONE 4 MG TAB (DECADRON) PEG SCH ×2 (08:47→20:40)
[2017-02-25] MEDS: LEVETIRACETAM 500 MG/ 5 ML UDC ORAL SOLN (KEPPRA) PEG SCH (08:47)
[2017-02-25] MEDS: amLODIPine 5 MG (NORVASC) TAB PEG SCH (08:47)
[2017-02-25] MEDS: ENOXAPARIN 40 MG/0.4 ML (LOVENOX) SYR SC SCH (08:48)
[2017-02-25] MEDS: ATENOLOL 50 MG (TENORMIN) TAB PEG SCH (08:48)
[2017-02-25] MEDS: FAMOTIDINE 20 MG (PEPCID) TABLET PEG SCH (08:48)
--- NOTE | 2017-02-25 09:03 | Physical Therapy Daily Note ---
PT Daily Note-Current Subjective Pt. in bed upon arrival. Agrees to rx. Questioning ehr schedule for the day fitting with her Dr appt Pain Numeric Pain Scale: 0-No Pain Mental Status Patient Orientation: Confused Transfers Functional [place] Measure 0=Not Assessed/NA 4=Minimal Assistance 1=Total Assistance 5=Supervision or Setup 2=Maximal Assistance 6=Modified [place] 3=Moderate Assistance 7=Complete IndependenceIRFPAI Quality Coding Scale 6 Independent with activity with or without an assistive device 5 Patient requires set up or clean up by helper. Patient completes activity by themselves 4 Supervision or touching assist (CGA). [place] provide cues , steadying assist 3 The helper provides less than half the effort to complete the activity 2 The helper provides more than half the effort to complete the activity 1 Dependent. The helper does all the effort to complete an activity 7 Patient refused to complete or attempt activity 9 The patient did not perform the activity before the current illness or injury 88 Not attempted due to Medical conditions or safety concerns Transfers (B, C, W/C) (FIM): 2 Scootin Rollin Supine to/from Sit: 4 Sit to/from Stand: 3 Bed to/from Chair: 2 Weight Bearing Right Lower Extremity: Right Weight Bearing/Tolerated Left Lower Extremity: Left Weight Bearing/Tolerated Gait Training Does the Patient Walk?: Yes Gait (FIM): 1 Distance (FIM): 1=up to 49 ft (5ftx3) Gait Level of Assist: 2 Gait Persons Needed: 1 Gait Assistive Device: FWW many LOB episodes, listing to right in sitting as well as stance. falls retro in sit Wheelchair Training Does the Pt Use a Wheelchair?: Yes Wheelchair (FIM): 3 Wheelchair Distance: 3=150 ft Wheelchair Level of Assist: 3 Type of Wheelchair: Manual required assist for turning and w/c management Exercises Seated Therapy Exercises: Ankle pumps, Sit to stand, Long arc quads, Hip flexion Seated Reps: 15 NuStep Minutes: 10 NuStep Workload: 4 Treatments leg presses on Nustep x12 Assessment Current Status: Fair Progress many LOB episodes, needed assist for SPTs BSC to w/c and bed as well as some assist cleaning, w/c mobility much more practical for mobility as balance issues make gait unsafe PT Short Term Goals Short Term Goals Time Frame: Feb 25, 2017 Transfers (B,C,W/C) (FIM): 4 Gait (FIM): 1 Gait Distance Comment: 10' Gait Level of Assist: 3 Gait Assistive Device: Parallel Bars Wheelchair (FIM): 2 Wheelchair Distance: 100' Wheelchair Level of Assist: 4 PT Ceramic Sprayer Goals Half-Way Goals PT Half-Way Goals Time Frame: Mar 11, 2017 Transfers (B,C,W/C) (FIM): 4 Sit to Lying (QC): 4 Lying-Sitting on Side/Bed(QC): 4 Sit to Stand (QC): 3 Rollin Roll Left to Right (QC): 4 Chair/Hwk-ax-Zzwoe Xfer(QC): 3 Car Transfer (QC): 3 Does the Patient Walk: No and Walking Goal IS indicated Gait (FIM): 1 Distance: 20' Walk 10 feet (QC): 3 Gait Level of Assist: 4 Gait Assistive Device: FWW Does the Pt use WC or Scooter?: Yes Wheelchair (FIM): 4 Distance: 150' Wheelchair Level of Assist: 4 Wheel 50 feet with 2 turns (QC: 3 Stairs (FIM): 1 # of Steps: 1 1 Step (curb) (QC): 3 4 Steps (QC): 88 12 Steps (QC): 88 Stairs Level Of Assist: 4 Picking up an Object (QC): 88 PT Plan Treatment/Plan Treatment Plan: Continue Plan of Care Treatment Plan: Bed Mobility, Concurrent Therapy, Education, Functional Activity Alicia, Functional Strength, Group Therapy, Gait, Safety, Therapeutic Exercise, Transfers Treatment Duration: Mar 11, 2017 Frequency: At least 5 of 7 days/Wk (IRF) Estimated Hrs Per Day: 1.5 hours per day Patient and/or Family Agrees t: Yes Safety Risks/Education Patient Education: Gait Training, Transfer Techniques, W/C Management Teaching Recipient: Patient Teaching Methods: Demonstration, Discussion Response to Teaching: Verbalize Understanding, Return Demonstration, Reinforcement Needed Time/GCodes Time In: 800 Time Out: 900 Total Billed Treatment Time: 60 Total Billed Treatment 1,WC 15m,FA25m,EX20m G Codes Necessary: JOCELYNE Bernal DOUBLE SURFACE OPERATOR Feb 25, 2017 09:03
[2017-02-25] MEDS: LEVETIRACETAM 1,000 MG (KEPPRA) TABLET PO SCH ×2 (10:07→20:40)
--- NOTE | 2017-02-25 12:52 | Physical Therapy Daily Note ---
PT Daily Note-Current Subjective Pt. agreeable to Rx but states she is so very tired. Mental Status Patient Orientation: Confused Transfers Functional [place] Measure 0=Not Assessed/NA 4=Minimal Assistance 1=Total Assistance 5=Supervision or Setup 2=Maximal Assistance 6=Modified [place] 3=Moderate Assistance 7=Complete IndependenceIRFPAI Quality Coding Scale 6 Independent with activity with or without an assistive device 5 Patient requires set up or clean up by helper. Patient completes activity by themselves 4 Supervision or touching assist (CGA). [place] provide cues , steadying assist 3 The helper provides less than half the effort to complete the activity 2 The helper provides more than half the effort to complete the activity 1 Dependent. The helper does all the effort to complete an activity 7 Patient refused to complete or attempt activity 9 The patient did not perform the activity before the current illness or injury 88 Not attempted due to Medical conditions or safety concerns sit to stand x6 with min assist Weight Bearing Right Lower Extremity: Right Weight Bearing/Tolerated Left Lower Extremity: Left Weight Bearing/Tolerated Wheelchair Training Type of Wheelchair: Manual 75ft x 2 with mod assist for turning and managing Exercises Seated Therapy Exercises: Ankle pumps, Sit to stand, Long arc quads, Hip flexion, Hip abd/add Seated Reps: 15 Assessment Current Status: Good Progress PT Short Term Goals Short Term Goals Time Frame: Feb 25, 2017 Transfers (B,C,W/C) (FIM): 4 Gait (FIM): 1 Gait Distance Comment: 10' Gait Level of Assist: 3 Gait Assistive Device: Parallel Bars Wheelchair (FIM): 2 Wheelchair Distance: 100' Wheelchair Level of Assist: 4 PT Intermediate Goals Hotbed Operator Goals PT Intermediate Goals Time Frame: Mar 11, 2017 Transfers (B,C,W/C) (FIM): 4 Sit to Lying (QC): 4 Lying-Sitting on Side/Bed(QC): 4 Sit to Stand (QC): 3 Rollin Roll Left to Right (QC): 4 Chair/Zvz-ag-Hynzn Xfer(QC): 3 Car Transfer (QC): 3 Does the Patient Walk: No and Walking Goal IS indicated Gait (FIM): 1 Distance: 20' Walk 10 feet (QC): 3 Gait Level of Assist: 4 Gait Assistive Device: FWW Does the Pt use WC or Scooter?: Yes Wheelchair (FIM): 4 Distance: 150' Wheelchair Level of Assist: 4 Wheel 50 feet with 2 turns (QC: 3 Stairs (FIM): 1 # of Steps: 1 1 Step (curb) (QC): 3 4 Steps (QC): 88 12 Steps (QC): 88 Stairs Level Of Assist: 4 Picking up an Object (QC): 88 PT Plan Treatment/Plan Treatment Plan: Continue Plan of Care Treatment Plan: Bed Mobility, Concurrent Therapy, Education, Functional Activity Alicia, Functional Strength, Group Therapy, Gait, Safety, Therapeutic Exercise, Transfers Treatment Duration: Mar 11, 2017 Frequency: At least 5 of 7 days/Wk (IRF) Estimated Hrs Per Day: 1.5 hours per day Patient and/or Family Agrees t: Yes Safety Risks/Education Patient Education: Transfer Techniques Teaching Recipient: Patient Teaching Methods: Demonstration, Discussion Response to Teaching: Verbalize Understanding, Return Demonstration, Reinforcement Needed Time/GCodes Time In: 1230 Time Out: 1245 Total Billed Treatment Time: 15 Total Billed Treatment 1,FA15m G Codes Necessary: JOCELYNE Bernal CONFERENCE SERVICE COORDINATOR Feb 25, 2017 12:52
--- NOTE | 2017-02-25 13:11 | Diagnostic Imaging Report ---
EXAMINATION: Modified barium swallow. Indication: Dysphagia Different consistencies of fluid and food was given mixed with barium and swallowing was visualized under fluoroscopy. FLUOROSCOPY TIME: One minute and 11 seconds FINDINGS: No aspiration seen. Transient laryngeal penetration with thin liquids is seen. IMPRESSION: No aspiration seen. Please refer to speech therapist's report for additional details . Dictated by: Dictated on workstation # [id number]
--- NOTE | 2017-02-25 13:16 | ST Mod Barium Swallow ---
Speech Evaluation-General Medical Diagnosis Craniotomy, Bilateral Weakness, Falls, Glioblastoma Onset Date: Feb 03, 2017 Therapy Diagnosis Therapy Diagnosis: Mild to Moderate Oropharyngeal Dysphagia Precautions Precautions: Aspiration Precautions/Isolations: Aspiration, Fall Prevention, Standard Precautions Referral Referring Physician: Dr. Guillaume Dodson Reason for Referral: Evaluation/Treatment Modified Barium Swallow Medical History Pertinent Medical History: GERD, HTN Reviewed History: Yes Social History Current Living Status: Spouse Speech Mod Barium Swallow Prior Level of Function Prior to the modified barium swallow, the patient was receiving a mechanical soft diet with nectar-thickened liquid. Oral Motor Skills Lingual Protrusion: Normal Lingual ROM: Normal Lingual Strength: Normal Velum: Normal Volitional Dry Swallow: Yes (With moderate verbal prompting.) Voluntary Cough: Yes (Weak.) Textures-Lateral View Lateral View Food Presentation: Thin Liquid via Spoon, Thin Liquid via Cup, Thin Liquid via Straw, [place] Liquid via Spoon, Honey Liquid via Spoon, Pureed Solids Oral Phase Labial Closure: No Impairment (WFL) Bolus Formation Pooling L/R: Mild Impairment Bolus Formation Placement: Mild Impairment A/P Lingual Propulsion: Mild Impairment Lingual Movement: Mild Impairment Oral Phase Residue: Mild Impairment The patient demonstrated lateral pooling of liquid consistencies (mild), as well as, an overall poorly coordinated oral phase. The patient does spill liquid consistencies to the pyriform sinuses prior to swallow onset. Pharyngeal Phase Swallow Response: Moderate Impairment Base of Tongue: Mild Impairment Epiglottic Movement: Mild Impairment Laryngeal Elevation: Mild Impairment Vallecular Residue: Mild Pharyngeal Wall Residue: Mild Piriform Sinus Residue: Moderate Laryngeal Penetration: Moderate (Thin liquid via straw.) Aspiration Observations: None Other Pharyngeal Observations: No aspiration was visualized with any consistesncy tested. Deep laryngeal penetration to the level of the true vocal cords was observed with thin liquid via straw. Trace, transient laryngeal penetration occurred with cup sips of thin liquid, however, all penetrated material cleared the laryngeal vestibule upon completion of the swallow. Mild vallecular and moderate pyriform sinus residue was visualized with all consistencies tested. The patient was able to mildly clear residual material with a cued subsequent swallow. No laryngeal penetration was visualized with nectar-thick, honey-thick, or puree consistencies tested. Performed-A/P View Not Applicable/Performed Summary/Impressions The patient displayed mild to moderate oropharyngeal dysphagia characterized by reduced lingual coordination, decreased base of tongue retraction, reduced pharyngeal contraction, and decreased laryngeal elevation. Recommendations: - Regular diet with thin liquid consistency, as tolerated. - No straws. - Pills placed in puree for administration. - Upright and alert for all PO. - Small bites and sips. Speech Short Term Goals Short Term Goals Short Term Goals 1. The patient will demonstrate oropharyngeal swallowing exercises with 80% accuracy, independently. 2. The patient will recall and demonstrate three functional memory strategies for use at home with mild clinician verbal cueing. Time Frame-STG: Two Weeks Speech Senior Care Goals Underwriting Technician Goals 1. The patient will demonstrate the least restrictive diet without signs/ symptoms of aspiration or laryngeal penetration. 2. The patient will demonstrate improved functional memory and use of memory strategies for increased function and safety at home. Time Frame: Three Weeks Speech-Plan Treatment Plan Speech Therapy Treatment Plan: Continue Plan of Care Continue skilled speech pathology to target swallowing safety and oropharyngeal strengthening. Treatment Duration: Mar 12, 2017 Frequency: Modified Program (IRF) (Four to Five Times per Week) Estimated Hrs Per Day: .5 hour per day Rehab Potential: Guarded Safety Risks/Education Teaching Recipient: Patient, Significant Other Teaching Methods: Discussion Response to Teaching: Verbalize Understanding Education Topics Provided: Results, Recommendations, Plan of Care Time Speech Therapy Time In: 10:00 Speech Therapy Time Out: 10:30 Total Billed Time: 30 Billed Treatment Time LINDSAY Keller ALTAF AGUILA Feb 25, 2017 13:16
[2017-02-25] MEDS: ACETAMINOPHEN 325 MG TABLET/CAPLET (TYLENOL) PO PRN ×2 (14:32→20:41)
--- NOTE | 2017-02-25 15:38 | Occupational Ther Daily Note ---
OT Current Status-Daily Note Subjective No pain reported. Pt. states that she will be busy this afternoon. Appearance Pt. is up in wheelchair after PT. Agrees to shower. Mental Status/Objective Patient Orientation: Unable to Assess Functional [place] Measure 0=Not Assessed/NA 4=Minimal Assistance 1=Total Assistance 5=Supervision or Setup 2=Maximal Assistance 6=Modified [place] 3=Moderate Assistance 7=Complete [place] ADL-Treatment Functional [place] Measure 0=Not Assessed/NA 4=Minimal Assistance 1=Total Assistance 5=Supervision or Setup 2=Maximal Assistance 6=Modified [place] 3=Moderate Assistance 7=Complete IndependenceIRFPAI Quality Coding Scale 6 Independent with activity with or without an assistive device 5 Patient requires set up or clean up by helper. Patient completes activity by themselves 4 Supervision or touching assist (CGA). Antlers provide cues , steadying assist 3 The helper provides less than half the effort to complete the activity 2 The helper provides more than half the effort to complete the activity 1 Dependent. The helper does all the effort to complete an activity 7 Patient refused to complete or attempt activity 9 The patient did not perform the activity before the current illness or injury 88 Not attempted due to Medical conditions or safety concerns Grooming (FIM): 3 (Pt. is able to brush teeth with SBA, but requires mod assist to brush hair.) Oral Hygiene (QC): 5 Bathing (FIM): 3 (Overall, pt. requires mod assist to bathe all parts in shower.) Shower/Bathe Self (QC): 3 Upper Body (FIM): 2 (Pt. requires max assist to don bra and shirt.) Upper Body Dressing (QC): 2 Lower Body Dressing (FIM): 2 Lower Body Dressing (QC): 2 On/Off Footwear (QC): 1 Transfers (B, C, W/C) (FIM): 2 (Max assist sit-stand.) Shower Transfer(FIM): 2 Other Treatment Pt. completed shower and dressing task this date. Pt. had difficulty with upright positioning today. Pt. fatigued and lists to right in wheelchair. After shower, pt. self propelled with assist to gym. Completed 15 minutes with several brief rest breaks at min resistance to increase overall strength. Pt. began to fall asleep at armbike. Pt. propelled back to room with increased time needed and cues for safety. Education OT Patient Education: Correct positioning, Exercise program, Modified ADL techniques, Progress toward Goal/Update tx plan, Purpose of tx/functional activities, Reviewed precautions, Rehab process, Transfer techniques Teaching Recipient: Patient Teaching Methods: Demonstration, Discussion Response to Teaching: Verbalize Understanding, Return Demonstration OT Short Term Goals Short Term Goals Time Frame: Mar 04, 2017 Eating(FIM): 5 Grooming(FIM): 5 Bathing(FIM): 4 Upper Body Dressing(FIM): 5 Lower Body Dressing(FIM): 4 Toileting(FIM): 4 Transfers (B,C,W/C) (FIM): 4 Toilet/Commode Transfer(FIM): 4 Shower Transfer(FIM): 3 Additional Short Term Goals: 1-Demonstrate ADL Tasks, 2-Verbalize Understanding , 3-ImproveStrength/Alicia 1=Demonstrate adherence to instructed precautions during ADL tasks. 2=Patient will verbalize/demonstrate understanding of assistive devices/ modifications for ADL. 3=Patient will improve strength/tolerance for activity to enable patient to perform ADL's. OT Chemistry Technical Officer Goals Chemistry Technical Officer Goals Time Frame: Mar 18, 2017 Eating (FIM): 6 Eating (QC): 6 Groomin Oral Hygiene (QC): 5 Bathing(FIM): 4 Shower/Bathe Self (QC): 4 Upper Body Dressing(FIM): 5 Upper Body Dressing (QC): 5 Lower Body Dressing(FIM): 5 Lower Body Dressing (QC): 5 On/Off Footwear (QC): 5 Toileting(FIM): 5 Toileting Hygiene (QC): 5 Transfers (B,C,W/C) (FIM): 5 Toilet/Commode Transfer(FIM): 5 Toilet/Commode Transfer (QC): 5 Shower Transfer(FIM): 4 Additional Goals: 1-Demonstrate ADL Tasks, 2-Verbalize Understanding, 3- ImproveStrength/Alicia 1=Demonstrate adherence to instructed precautions during ADL tasks. 2=Patient will verbalize/demonstrate understanding of assistive devices/ modifications for ADL. 3=Patient will improve strength/tolerance for activity to enable patient to perform ADL's. OT Education/Plan Problem List/Assessment Assessment: Decreased Activ Tolerance, Decreased Safety Aware, Decreased UE Strength, Dependent Transfers, Impaired Bed Mobility, Impaired Cognition, Impaired Coordination, Impaired Funct Balance, Impaired I ADL's, Impaired Self- Care Skills, Restricted Funct UE ROM, Visual-Perceptual Deficit Discharge Recommendations Plan/Recommendations: Continue POC Therapy D/C Recommendations: 24 hr Supervision Target Placement Home with spouse with scheduled assist as needed. Treatment Plan/Plan of Care Treatment,Training & Education: Yes Patient would benefit from OT for education, treatment and training to promote independence in ADL's, mobility, safety and/or upper extremity function for ADL' s. Plan of Care: ADL Retraining, Caregiver Training, Cognitive Retraining, Functional Mobility, Group Exercise/Act as Ind, UE Funct Exercise/Act Treatment Duration: Mar 18, 2017 Frequency: At least 5 of 7 days/Wk (IRF) Estimated Hrs Per Day: 1.5 hours per day Agreement: Yes Rehab Potential: Guarded Time/GCodes Start Time: 09:00 Stop Time: 10:00 Total Time Billed (hr/min): 60 Billed Treatment Time 1, ADL x 4 LIGIA CERRATO OT Feb 25, 2017 15:38
--- NOTE | 2017-02-25 15:41 | Occupational Ther Daily Note ---
OT Current Status-Daily Note Subjective Pt. states that she is tired. Appearance Pt. up in wheelchair. States that she passed her swallow test. Mental Status/Objective Functional [place] Measure 0=Not Assessed/NA 4=Minimal Assistance 1=Total Assistance 5=Supervision or Setup 2=Maximal Assistance 6=Modified [place] 3=Moderate Assistance 7=Complete [place] ADL-Treatment Functional [place] Measure 0=Not Assessed/NA 4=Minimal Assistance 1=Total Assistance 5=Supervision or Setup 2=Maximal Assistance 6=Modified [place] 3=Moderate Assistance 7=Complete IndependenceIRFPAI Quality Coding Scale 6 Independent with activity with or without an assistive device 5 Patient requires set up or clean up by helper. Patient completes activity by themselves 4 Supervision or touching assist (CGA). [place] provide cues , steadying assist 3 The helper provides less than half the effort to complete the activity 2 The helper provides more than half the effort to complete the activity 1 Dependent. The helper does all the effort to complete an activity 7 Patient refused to complete or attempt activity 9 The patient did not perform the activity before the current illness or injury 88 Not attempted due to Medical conditions or safety concerns Other Treatment Pt. practiced self propulsion in wheelchair for increased independence with wheelchair management. Pt. tolerated this with increased cues for safety on right side, as he would veer to right. Pt. states multiple times that she is tired, and that after her Dr. appointment this afternoon, she would like to take a nap. Pt. worked on propelling wheelchair in and out of obstacles. Went back to room with all needs met. Education OT Patient Education: Correct positioning, Exercise program, Modified ADL techniques, Progress toward Goal/Update tx plan, Purpose of tx/functional activities, Reviewed precautions, Rehab process, Safety issues, Transfer techniques Teaching Recipient: Patient Teaching Methods: Demonstration, Discussion Response to Teaching: Verbalize Understanding, Return Demonstration OT Short Term Goals Short Term Goals Time Frame: Mar 04, 2017 Eating(FIM): 5 Grooming(FIM): 5 Bathing(FIM): 4 Upper Body Dressing(FIM): 5 Lower Body Dressing(FIM): 4 Toileting(FIM): 4 Transfers (B,C,W/C) (FIM): 4 Toilet/Commode Transfer(FIM): 4 Shower Transfer(FIM): 3 Additional Short Term Goals: 1-Demonstrate ADL Tasks, 2-Verbalize Understanding , 3-ImproveStrength/Alicia 1=Demonstrate adherence to instructed precautions during ADL tasks. 2=Patient will verbalize/demonstrate understanding of assistive devices/ modifications for ADL. 3=Patient will improve strength/tolerance for activity to enable patient to perform ADL's. OT Medical Scribe Goals [facility] Goals Time Frame: Mar 18, 2017 Eating (FIM): 6 Eating (QC): 6 Groomin Oral Hygiene (QC): 5 Bathing(FIM): 4 Shower/Bathe Self (QC): 4 Upper Body Dressing(FIM): 5 Upper Body Dressing (QC): 5 Lower Body Dressing(FIM): 5 Lower Body Dressing (QC): 5 On/Off Footwear (QC): 5 Toileting(FIM): 5 Toileting Hygiene (QC): 5 Transfers (B,C,W/C) (FIM): 5 Toilet/Commode Transfer(FIM): 5 Toilet/Commode Transfer (QC): 5 Shower Transfer(FIM): 4 Additional Goals: 1-Demonstrate ADL Tasks, 2-Verbalize Understanding, 3- ImproveStrength/Alicia 1=Demonstrate adherence to instructed precautions during ADL tasks. 2=Patient will verbalize/demonstrate understanding of assistive devices/ modifications for ADL. 3=Patient will improve strength/tolerance for activity to enable patient to perform ADL's. OT Education/Plan Problem List/Assessment Assessment: Decreased Activ Tolerance, Decreased Safety Aware, Decreased UE Strength, Dependent Transfers, Impaired Bed Mobility, Impaired Cognition, Impaired Coordination, Impaired Funct Balance, Impaired I ADL's, Impaired Self- Care Skills, Restricted Funct UE ROM, Visual-Perceptual Deficit Discharge Recommendations Plan/Recommendations: Continue POC Therapy D/C Recommendations: 24 hr Supervision, Home w/ Family Support, Scheduled Assistance Treatment Plan/Plan of Care Treatment,Training & Education: Yes Patient would benefit from OT for education, treatment and training to promote independence in ADL's, mobility, safety and/or upper extremity function for ADL' s. Plan of Care: ADL Retraining, Caregiver Training, Cognitive Retraining, Functional Mobility, Group Exercise/Act as Ind, UE Funct Exercise/Act Treatment Duration: Mar 18, 2017 Frequency: At least 5 of 7 days/Wk (IRF) Estimated Hrs Per Day: 1.5 hours per day Agreement: Yes Rehab Potential: Guarded Time/GCodes Start Time: 12:45 Stop Time: 13:00 Total Time Billed (hr/min): 15 Billed Treatment Time 1, LIGIA ACEVEDO OT Feb 25, 2017 15:41
[2017-02-25] MEDS ORDERED: ONDANSETRON 4 MG (ZOFRAN) ORAL DISSOLVE TAB PO PRN (16:30)
[2017-02-25 18:26] VITALS: BP 108/68
[2017-02-25] MEDS: ATORVASTATIN 80 MG (LIPITOR) TABLET PEG SCH (20:40)
[2017-02-25] MEDS: oxyCODONE 5 MG/5 ML ORAL SOLN (roxiCODONE) 5 ML UDC PEG PRN (22:15)
[2017-02-26 06:10] VITALS: BP 100/67
[2017-02-26] MEDS: PANTOPRAZOLE 2 MG/ML LIQUID 200 ML (PROTONIX) PEG SCH ×3 (06:19)
[2017-02-26] MEDS: CYANOCOBALAMIN 500 MCG TAB (VITAMIN B-12) PEG SCH (06:19)
--- NOTE | 2017-02-26 07:36 | Progress Note (SOAP) ---
Subjective Time Seen by Provider: 07:30 Subjective/Events-last exam patient doing much better. Patient speech is better. Patient told me about seeing Dr. Jeffery yesterday for radiation. Patient told me about going to [facility] next Thursday Patient voices no complaints. patient had leg pain yesterday Objective Exam Vital Signs Date Time Temp Pulse Resp B/P (MAP) Pulse Ox O2 Delivery O2 Flow Rate FiO2 02/26/17 06:10 97.9 72 16 100/67 (78) 96 Room Air 02/25/17 20:40 Room Air 02/25/17 18:26 97.8 78 16 108/68 (81) 95 Room Air 02/25/17 09:00 Room Air I & O 02/26/17 07:00 Intake Total 1020 ml Balance 1020 ml Capillary Refill : General Appearance: No Apparent Distress, WD/WN HEENT: Normal ENT Inspection Neck: Full Range of Motion Respiratory: Lungs Clear, No Accessory Muscle Use, No Respiratory Distress Cardiovascular: Regular Rate, Rhythm, No Murmur Gastrointestinal: soft Assessment/Plan Assessment/Plan Assess & Plan/Chief Complaint glioblastoma. Hypertension. Hyperlipidemia. GERD. Viral encephalitis. Chronic constipation. Vitamin B12 deficiency. Vitamin D deficiency. . 02/19/17. Glioblastoma. Hypertension. Hyperlipidemia. GERD Vitamin B12 deficiency. Vitamin D deficiency. Patient feeling better this morning. . Glioblastoma. Hypertension. Hyperlipidemia. GERD. Patient has trouble with thought process.. . 03/08. Glioblastoma. Hypertension under control. Hyperlipidemia. GERD. Patient's confusion is less. . 02/24/17. Glioblastoma. Hypertension. Hyperlipidemia. GERD. Patient talked better today. Patient to take oral medications. . 02/25/17. Glioblastoma. Hypertension. Hyperlipidemia. GERD area Patient have modified barium swallow today. Patient to see a radiation oncologist at 1 p.m. today. Patient voices no complaints . 02/26/17. Glioblastoma. Hypertension. Hyperlipidemia. GERD. Patient passed modified barium swallow study. Patient told me about seeing radiation oncology as yesterday. Patient to go to [facility] next Thu. Clinical Quality Measures DVT/VTE Risk/Contraindication: Risk Factor Score Per Nursin RFS Level Per Nursing on Admit: 4+=Very High GANESH HEADLEY DO Feb 26, 2017 07:36
[2017-02-26] MEDS: DEXAMETHASONE 4 MG TAB (DECADRON) PEG SCH ×2 (07:58→20:27)
[2017-02-26] MEDS: FAMOTIDINE 20 MG (PEPCID) TABLET PEG SCH (07:58)
[2017-02-26] MEDS: ATENOLOL 50 MG (TENORMIN) TAB PEG SCH (07:58)
[2017-02-26] MEDS: LEVETIRACETAM 1,000 MG (KEPPRA) TABLET PO SCH ×2 (07:59→20:27)
[2017-02-26] MEDS: amLODIPine 5 MG (NORVASC) TAB PEG SCH (07:59)
[2017-02-26] MEDS: ENOXAPARIN 40 MG/0.4 ML (LOVENOX) SYR SC SCH (08:00)
--- NOTE | 2017-02-26 09:02 | Physical Therapy Daily Note ---
PT Daily Note-Current Subjective Patient in bed pre tx, agrees to PT, has no complaints of pain. Appearance Patient in wheelchair at bedside post tx with nurse call, phone, tray, all needs met. Mental Status Patient Orientation: Person, Place, Situation Transfers Functional [place] Measure 0=Not Assessed/NA 4=Minimal Assistance 1=Total Assistance 5=Supervision or Setup 2=Maximal Assistance 6=Modified [place] 3=Moderate Assistance 7=Complete IndependenceIRFPAI Quality Coding Scale 6 Independent with activity with or without an assistive device 5 Patient requires set up or clean up by helper. Patient completes activity by themselves 4 Supervision or touching assist (CGA). [place] provide cues , steadying assist 3 The helper provides less than half the effort to complete the activity 2 The helper provides more than half the effort to complete the activity 1 Dependent. The helper does all the effort to complete an activity 7 Patient refused to complete or attempt activity 9 The patient did not perform the activity before the current illness or injury 88 Not attempted due to Medical conditions or safety concerns Transfers (B, C, W/C) (FIM): 4 Scootin Rollin Supine to/from Sit: 4 Sit to/from Stand: 4 Patient performs sit to stand with CGA, she has difficulty but can do it without assist. Weight Bearing Right Lower Extremity: Right Weight Bearing/Tolerated Left Lower Extremity: Left Weight Bearing/Tolerated Gait Training Gait (FIM): 1 Distance: 20'x4 Gait Level of Assist: 4 Gait Persons Needed: 1 Gait Assistive Device: FWW Min assist with wheelchair follow. Patient has left knee hyperextension and trendelenburg gait. A arabic knee cage was used to help limit her knee hyperextension, it doesn't fit well but towels were used for a more secure fit. She had more difficulty ambulating without having knee hyperextension, but her trendelenburg gait was improved quite a bit. Wheelchair Training Does the Pt Use a Wheelchair?: Yes Wheelchair (FIM): 2 Distance: 100' Wheelchair Level of Assist: 5 Type of Wheelchair: Manual cues for direction, tends to veer to the right Exercises LAQ alternating for 5 min with 2# ankle weights, sit to programming specialist parallel bars x5 Treatments bed mobility and transfers, ambulation, wheelchair mobility, functional strengthening Assessment Current Status: Fair Progress improving endurance, patient has weak LLE and hip musculature causing impairments in gait PT Short Term Goals Short Term Goals Time Frame: Feb 25, 2017 Transfers (B,C,W/C) (FIM): 4 Gait (FIM): 1 Gait Distance Comment: 10' Gait Level of Assist: 3 Gait Assistive Device: Parallel Bars Wheelchair (FIM): 2 Wheelchair Distance: 100' Wheelchair Level of Assist: 4 PT Shelter Goals Shelter Goals PT Garment Manufacturer Goals Time Frame: Mar 11, 2017 Transfers (B,C,W/C) (FIM): 4 Sit to Lying (QC): 4 Lying-Sitting on Side/Bed(QC): 4 Sit to Stand (QC): 3 Rollin Roll Left to Right (QC): 4 Chair/[id number]-Lwmdv Xfer(QC): 3 Car Transfer (QC): 3 Does the Patient Walk: No and Walking Goal IS indicated Gait (FIM): 1 Distance: 20' Walk 10 feet (QC): 3 Gait Level of Assist: 4 Gait Assistive Device: FWW Does the Pt use WC or Scooter?: Yes Wheelchair (FIM): 4 Distance: 150' Wheelchair Level of Assist: 4 Wheel 50 feet with 2 turns (QC: 3 Stairs (FIM): 1 # of Steps: 1 1 Step (curb) (QC): 3 4 Steps (QC): 88 12 Steps (QC): 88 Stairs Level Of Assist: 4 Picking up an Object (QC): 88 PT Plan Problem List Problem List: Activity Tolerance, Functional Strength, Safety, Balance, Gait, Transfer, Bed Mobility, ROM Treatment/Plan Treatment Plan: Continue Plan of Care Treatment Plan: Bed Mobility, Concurrent Therapy, Education, Functional Activity Alicia, Functional Strength, Group Therapy, Gait, Safety, Therapeutic Exercise, Transfers Treatment Duration: Mar 11, 2017 Frequency: At least 5 of 7 days/Wk (IRF) Estimated Hrs Per Day: 1.5 hours per day Patient and/or Family Agrees t: Yes Safety Risks/Education Patient Education: Gait Training, Transfer Techniques, Correct Positioning, W/ C Management, Safety Issues Teaching Recipient: Patient Teaching Methods: Demonstration, Discussion Response to Teaching: Reinforcement Needed Time/GCodes Time In: 810 Time Out: 900 Total Billed Treatment Time: 50 Total Billed Treatment 1 visit GT 35' EX 10' WCH 5' NGUYEN HUITRON PT Feb 26, 2017 09:02
[2017-02-26] MEDS ORDERED: oxyCODONE 5 MG/5 ML ORAL SOLN (roxiCODONE) 5 ML UDC PO PRN (09:45)
--- NOTE | 2017-02-26 10:07 | Speech Therapy Daily Note ---
Speech Daily Progress Note Subjective Date Seen by Provider: Feb 26, 2017 Time Seen by Provider: 09:00 The patient was seated upright in wheelchair upon entrance. The patient greeted the clinician appropriately and was agreeable to participation in the dysphagia treatment session. Objective Oropharyngeal Exercises: Dysphagia strengthening exercises (base of tongue retraction, pharyngeal contraction, and laryngeal elevation) were continued on this date. The patient displayed fair to good accuracy with all exercises with moderate clinician prompting and an initial direct modeling demonstration. The patient completed five repetitions of each exercise. Assessment Assessment Current Status: Fair Progress Treatment Plan Continue Plan of Care Communication Comprehension: 4 Expression: 4 Social Cognition Social Interaction: 4 Problem Solvin Memory: 4 Speech Short Term Goals Short Term Goals Short Term Goals 1. The patient will demonstrate oropharyngeal swallowing exercises with 80% accuracy, independently. 2. The patient will recall and demonstrate three functional memory strategies for use at home with mild clinician verbal cueing. Time Frame-STG: Two Weeks Speech Tv Technician Goals [facility] Goals 1. The patient will demonstrate the least restrictive diet without signs/ symptoms of aspiration or laryngeal penetration. 2. The patient will demonstrate improved functional memory and use of memory strategies for increased function and safety at home. Time Frame: Three Weeks Speech-Plan Treatment Plan Speech Therapy Treatment Plan: Continue Plan of Care Continue skilled speech pathology to target swallowing safety and strategies. Treatment Duration: Mar 12, 2017 Frequency: Modified Program (IRF) (Four to Five Times per Week) Estimated Hrs Per Day: .5 hour per day Rehab Potential: Guarded Safety Risks/Education Teaching Recipient: Patient Teaching Methods: Demonstration, Handout, Discussion Response to Teaching: Return Demonstration Education Topics Provided: Dysphagia Exercises Time Speech Therapy Time In: 09:00 Speech Therapy Time Out: 09:30 Total Billed Time: 30 Billed Treatment Time ELEAZAR Keller ALTAF AGUILA Feb 26, 2017 10:06
--- NOTE | 2017-02-26 14:03 | Occupational Ther Daily Note ---
OT Current Status-Daily Note Subjective No pain reported. Appearance Pt. up in chair. Agrees to work with OT. Mental Status/Objective Patient Orientation: Person Functional [place] Measure 0=Not Assessed/NA 4=Minimal Assistance 1=Total Assistance 5=Supervision or Setup 2=Maximal Assistance 6=Modified [place] 3=Moderate Assistance 7=Complete [place] ADL-Treatment Functional [place] Measure 0=Not Assessed/NA 4=Minimal Assistance 1=Total Assistance 5=Supervision or Setup 2=Maximal Assistance 6=Modified [place] 3=Moderate Assistance 7=Complete IndependenceIRFPAI Quality Coding Scale 6 Independent with activity with or without an assistive device 5 Patient requires set up or clean up by helper. Patient completes activity by themselves 4 Supervision or touching assist (CGA). [place] provide cues , steadying assist 3 The helper provides less than half the effort to complete the activity 2 The helper provides more than half the effort to complete the activity 1 Dependent. The helper does all the effort to complete an activity 7 Patient refused to complete or attempt activity 9 The patient did not perform the activity before the current illness or injury 88 Not attempted due to Medical conditions or safety concerns Toileting (FIM): 2 Toileting Hygiene (QC): 2 Transfers (B, C, W/C) (FIM): 2 (Max assist to stand and pivot.) Toilet/Commode Transfer (FIM): 2 (Please see note.) Toilet Transfer (QC): 2 Other Treatment Pt. is up in chair and dressed after PT. Declines showering and requests to stay in clothing when it is time for OT session. Agrees to go to therapy gym with OT. Pt. practices self propulsion in wheelchair with cues to correct self and not hit items on right side. Pt. is slow with this. Completed game ( trivial pursuit) in gym with focus on memory, sequencing, and visual input. Pt. had to remember the rules and read the card when it was her turn. Pt. was also asked trivia questions and did very well with remembering answers. After this task, pt. was given visual perceptual/fine motor task of putting colored rubber bands board after looking at visual cue. Pt. did well overall with one mistake that she was not aware that she made. Self propelled back to room and pt. demonstrated increased fatigue, making it more difficult to stay in straight line. Pt. states that she has to go to the bathroom. Transferred to regular toilet and then had BM. Pt. able to cleanse self, but it was noted that she did not get clean well. OT went over this for her. OT assisted pt. in stance to pull up pants. Pt's legs would not seem to hold her at this time, and pt. had to sit back down 3 times during toileting task. Once pants and brief were finally up, pt. transferred to wheelchair and went to room. OT transferred pt. back to bed with max assist. All needs met. Education OT Patient Education: Correct positioning, Modified ADL techniques, Progress toward Goal/Update tx plan, Purpose of tx/functional activities, Reviewed precautions, Rehab process, Transfer techniques, W/C management Teaching Recipient: Patient Teaching Methods: Demonstration, Discussion Response to Teaching: Verbalize Understanding, Return Demonstration OT Short Term Goals Short Term Goals Time Frame: Mar 04, 2017 Eating(FIM): 5 Grooming(FIM): 5 Bathing(FIM): 4 Upper Body Dressing(FIM): 5 Lower Body Dressing(FIM): 4 Toileting(FIM): 4 Transfers (B,C,W/C) (FIM): 4 Toilet/Commode Transfer(FIM): 4 Shower Transfer(FIM): 3 Additional Short Term Goals: 1-Demonstrate ADL Tasks, 2-Verbalize Understanding , 3-ImproveStrength/Alicia 1=Demonstrate adherence to instructed precautions during ADL tasks. 2=Patient will verbalize/demonstrate understanding of assistive devices/ modifications for ADL. 3=Patient will improve strength/tolerance for activity to enable patient to perform ADL's. OT Glove Former Goals Senior Living Goals Time Frame: Mar 18, 2017 Eating (FIM): 6 Eating (QC): 6 Groomin Oral Hygiene (QC): 5 Bathing(FIM): 4 Shower/Bathe Self (QC): 4 Upper Body Dressing(FIM): 5 Upper Body Dressing (QC): 5 Lower Body Dressing(FIM): 5 Lower Body Dressing (QC): 5 On/Off Footwear (QC): 5 Toileting(FIM): 5 Toileting Hygiene (QC): 5 Transfers (B,C,W/C) (FIM): 5 Toilet/Commode Transfer(FIM): 5 Toilet/Commode Transfer (QC): 5 Shower Transfer(FIM): 4 Additional Goals: 1-Demonstrate ADL Tasks, 2-Verbalize Understanding, 3- ImproveStrength/Alicia 1=Demonstrate adherence to instructed precautions during ADL tasks. 2=Patient will verbalize/demonstrate understanding of assistive devices/ modifications for ADL. 3=Patient will improve strength/tolerance for activity to enable patient to perform ADL's. OT Education/Plan Problem List/Assessment Assessment: Decreased Activ Tolerance, Decreased Safety Aware, Decreased UE Strength, Dependent Transfers, Impaired Bed Mobility, Impaired Cognition, Impaired Coordination, Impaired Funct Balance, Impaired I ADL's, Impaired Self- Care Skills, Restricted Funct UE ROM, Visual-Perceptual Deficit Discharge Recommendations Plan/Recommendations: Continue POC Therapy D/C Recommendations: 24 hr Supervision, Home w/ Family Support, Occupational Therapy Home Care, Scheduled Assistance Treatment Plan/Plan of Care Treatment,Training & Education: Yes Patient would benefit from OT for education, treatment and training to promote independence in ADL's, mobility, safety and/or upper extremity function for ADL' s. Plan of Care: ADL Retraining, Caregiver Training, Cognitive Retraining, Functional Mobility, Group Exercise/Act as Ind, UE Funct Exercise/Act Treatment Duration: Mar 18, 2017 Frequency: At least 5 of 7 days/Wk (IRF) Estimated Hrs Per Day: 1.5 hours per day Agreement: Yes Rehab Potential: Guarded Time/GCodes Start Time: 10:00 Stop Time: 11:15 Total Time Billed (hr/min): 75 Billed Treatment Time 1, FA x 60minutes, ADL x 15minutes LIGIA CERRATO OT Feb 26, 2017 14:02
--- NOTE | 2017-02-26 14:48 | Physical Therapy Daily Note ---
PT Daily Note-Current Subjective Agreeable to PT. Requests to ride the Nu Step. Reports she really likes it. Transfers Functional [place] Measure 0=Not Assessed/NA 4=Minimal Assistance 1=Total Assistance 5=Supervision or Setup 2=Maximal Assistance 6=Modified [place] 3=Moderate Assistance 7=Complete IndependenceIRFPAI Quality Coding Scale 6 Independent with activity with or without an assistive device 5 Patient requires set up or clean up by helper. Patient completes activity by themselves 4 Supervision or touching assist (CGA). [place] provide cues , steadying assist 3 The helper provides less than half the effort to complete the activity 2 The helper provides more than half the effort to complete the activity 1 Dependent. The helper does all the effort to complete an activity 7 Patient refused to complete or attempt activity 9 The patient did not perform the activity before the current illness or injury 88 Not attempted due to Medical conditions or safety concerns Weight Bearing Right Lower Extremity: Right Weight Bearing/Tolerated Left Lower Extremity: Left Weight Bearing/Tolerated Treatments Wheelchair mobility 100 ft with SBA and skilled verbal cues for safety and protection of hands as she turning into rooms through doorways. SPT on/off Nu step with FWW with CGA and skilled cues for hand placement. Nu step x 15 minutes on level 5 to increase LE strength and functional activity tolerance to improve gait and transfer ability; Then, wheelchair mobilty x 30 ft back to room with SBA. SPT chair to bed with FWW with CGA and sit to supine mod indepl In bed post treatment with needs met. Assessment Current Status: Good Progress This patient is more steady with functional transfers then when last seen by this clinician. Her safety and balance have improved as well. PT Short Term Goals Short Term Goals Time Frame: Feb 25, 2017 Transfers (B,C,W/C) (FIM): 4 Gait (FIM): 1 Gait Distance Comment: 10' Gait Level of Assist: 3 Gait Assistive Device: Parallel Bars Wheelchair (FIM): 2 Wheelchair Distance: 100' Wheelchair Level of Assist: 4 PT Engine Turner Goals [facility] Goals PT [facility] Goals Time Frame: Mar 11, 2017 Transfers (B,C,W/C) (FIM): 4 Sit to Lying (QC): 4 Lying-Sitting on Side/Bed(QC): 4 Sit to Stand (QC): 3 Rollin Roll Left to Right (QC): 4 Chair/Hzn-qa-Yuhpe Xfer(QC): 3 Car Transfer (QC): 3 Does the Patient Walk: No and Walking Goal IS indicated Gait (FIM): 1 Distance: 20' Walk 10 feet (QC): 3 Gait Level of Assist: 4 Gait Assistive Device: FWW Does the Pt use WC or Scooter?: Yes Wheelchair (FIM): 4 Distance: 150' Wheelchair Level of Assist: 4 Wheel 50 feet with 2 turns (QC: 3 Stairs (FIM): 1 # of Steps: 1 1 Step (curb) (QC): 3 4 Steps (QC): 88 12 Steps (QC): 88 Stairs Level Of Assist: 4 Picking up an Object (QC): 88 PT Plan Problem List Problem List: Activity Tolerance, Functional Strength, Safety, Balance, Gait, Transfer Treatment/Plan Treatment Plan: Continue Plan of Care Treatment Plan: Bed Mobility, Concurrent Therapy, Education, Functional Activity Alicia, Functional Strength, Group Therapy, Gait, Safety, Therapeutic Exercise, Transfers Treatment Duration: Mar 11, 2017 Frequency: At least 5 of 7 days/Wk (IRF) Estimated Hrs Per Day: 1.5 hours per day Patient and/or Family Agrees t: Yes Safety Risks/Education Patient Education: Transfer Techniques, Safety Issues Teaching Recipient: Patient Teaching Methods: Discussion Response to Teaching: Reinforcement Needed Time/GCodes Time In: 1259 Time Out: 1330 Total Billed Treatment Time: 31 Total Billed Treatment visit EX 15 WC 16 JUANI MARIN PT Feb 26, 2017 14:48
[2017-02-26 18:19] VITALS: BP 105/65
[2017-02-26] MEDS: ATORVASTATIN 80 MG (LIPITOR) TABLET PEG SCH (20:27)
[2017-02-26] MEDS: ACETAMINOPHEN 325 MG TABLET/CAPLET (TYLENOL) PO PRN (21:01)
[2017-02-27 05:43] VITALS: BP 117/72
[2017-02-27] MEDS: PANTOPRAZOLE 20 MG TABLET (PROTONIX) PO SCH (05:47)
[2017-02-27] MEDS: CYANOCOBALAMIN 500 MCG TAB (VITAMIN B-12) PEG SCH (05:47)
--- NOTE | 2017-02-27 07:23 | Occupational Ther Daily Note ---
OT Current Status-Daily Note Subjective Pt alert, lying in bed. Pt agreed to therapy. Pt c/o L knee throbbing, stated that nrsg had already given pain medication. Mental Status/Objective Patient Orientation: Person, Place, Time, Situation Functional [place] Measure 0=Not Assessed/NA 4=Minimal Assistance 1=Total Assistance 5=Supervision or Setup 2=Maximal Assistance 6=Modified [place] 3=Moderate Assistance 7=Complete [place] ADL-Treatment Functional [place] Measure 0=Not Assessed/NA 4=Minimal Assistance 1=Total Assistance 5=Supervision or Setup 2=Maximal Assistance 6=Modified [place] 3=Moderate Assistance 7=Complete IndependenceIRFPAI Quality Coding Scale 6 Independent with activity with or without an assistive device 5 Patient requires set up or clean up by helper. Patient completes activity by themselves 4 Supervision or touching assist (CGA). [place] provide cues , steadying assist 3 The helper provides less than half the effort to complete the activity 2 The helper provides more than half the effort to complete the activity 1 Dependent. The helper does all the effort to complete an activity 7 Patient refused to complete or attempt activity 9 The patient did not perform the activity before the current illness or injury 88 Not attempted due to Medical conditions or safety concerns Eating (FIM): 6 (Pt able to open milk container, banana and cereal then uses regular utensils to feed self.) Eating (QC): 6 Grooming (FIM): 5 (Sitting in w/c, pt is able to complete own grooming. pt requires assistance to maneuver w/c to sink.) Oral Hygiene (QC): 5 On/Off Footwear (QC): 5 (After set up, pt is able to cross legs and don/doff socks and shoes.) Toileting (FIM): 4 (Pt is able to cleanse self sitting on the toilet. Pt requires assist to stand and hike pants over hips.) Other Treatment Pt took increased time to complete the ADLs. Pt then was transported to therapy gym to complete UE strengthening and fine motor activities. Pt was able to demonstrate ability to complete hand strengthening exercises well for daily functional tasks. After OT, PT took over care of pt. All needs met. OT Short Term Goals Short Term Goals Time Frame: Mar 04, 2017 Eating(FIM): 5 Grooming(FIM): 5 Bathing(FIM): 4 Upper Body Dressing(FIM): 5 Lower Body Dressing(FIM): 4 Toileting(FIM): 4 Transfers (B,C,W/C) (FIM): 4 Toilet/Commode Transfer(FIM): 4 Shower Transfer(FIM): 3 Additional Short Term Goals: 1-Demonstrate ADL Tasks, 2-Verbalize Understanding , 3-ImproveStrength/Alicia 1=Demonstrate adherence to instructed precautions during ADL tasks. 2=Patient will verbalize/demonstrate understanding of assistive devices/ modifications for ADL. 3=Patient will improve strength/tolerance for activity to enable patient to perform ADL's. OT Firearms Model Maker Goals Firearms Model Maker Goals Time Frame: Mar 18, 2017 Eating (FIM): 6 Eating (QC): 6 Groomin Oral Hygiene (QC): 5 Bathing(FIM): 4 Shower/Bathe Self (QC): 4 Upper Body Dressing(FIM): 5 Upper Body Dressing (QC): 5 Lower Body Dressing(FIM): 5 Lower Body Dressing (QC): 5 On/Off Footwear (QC): 5 Toileting(FIM): 5 Toileting Hygiene (QC): 5 Transfers (B,C,W/C) (FIM): 5 Toilet/Commode Transfer(FIM): 5 Toilet/Commode Transfer (QC): 5 Shower Transfer(FIM): 4 Additional Goals: 1-Demonstrate ADL Tasks, 2-Verbalize Understanding, 3- ImproveStrength/Alicia 1=Demonstrate adherence to instructed precautions during ADL tasks. 2=Patient will verbalize/demonstrate understanding of assistive devices/ modifications for ADL. 3=Patient will improve strength/tolerance for activity to enable patient to perform ADL's. OT Education/Plan Discharge Recommendations Plan/Recommendations: Continue POC Treatment Plan/Plan of Care Patient would benefit from OT for education, treatment and training to promote independence in ADL's, mobility, safety and/or upper extremity function for ADL' s. Plan of Care: ADL Retraining, Caregiver Training, Cognitive Retraining, Functional Mobility, Group Exercise/Act as Ind, UE Funct Exercise/Act Treatment Duration: Mar 18, 2017 Frequency: At least 5 of 7 days/Wk (IRF) Estimated Hrs Per Day: 1.5 hours per day Agreement: Yes Rehab Potential: Guarded Time/GCodes Start Time: 07:00 Stop Time: 08:00 Total Time Billed (hr/min): 60 Billed Treatment Time 1 visit-ADL 3 (40 min) EX 1 (20 min) JUANI LOTT Feb 27, 2017 07:23
--- NOTE | 2017-02-27 08:08 | Progress Note (SOAP) ---
Subjective Time Seen by Provider: 08:05 Subjective/Events-last exam glioblastoma. Patient has weakness and left hip and knee. Patient hyperextends left knee. Patient to have mask today. patient is positive. patient a work in progress Objective Exam Vital Signs Date Time Temp Pulse Resp B/P (MAP) Pulse Ox O2 Delivery O2 Flow Rate FiO2 02/27/17 05:43 97.4 64 20 117/72 (87) 98 Room Air 02/26/17 20:30 Room Air 02/26/17 18:19 98.6 72 18 105/65 (78) 95 Room Air I & O 02/27/17 07:00 Intake Total 1080 ml Balance 1080 ml Capillary Refill : General Appearance: No Apparent Distress, WD/WN Neck: Normal Inspection Respiratory: No Accessory Muscle Use, No Respiratory Distress Cardiovascular: Regular Rate, Rhythm Gastrointestinal: soft Assessment/Plan Assessment/Plan Assess & Plan/Chief Complaint glioblastoma. Hypertension. Hyperlipidemia. GERD. Viral encephalitis. Chronic constipation. Vitamin B12 deficiency. Vitamin D deficiency. . 02/19/17. Glioblastoma. Hypertension. Hyperlipidemia. GERD Vitamin B12 deficiency. Vitamin D deficiency. Patient feeling better this morning. . Glioblastoma. Hypertension. Hyperlipidemia. GERD. Patient has trouble with thought process.. . 03/08. Glioblastoma. Hypertension under control. Hyperlipidemia. GERD. Patient's confusion is less. . 02/24/17. Glioblastoma. Hypertension. Hyperlipidemia. GERD. Patient talked better today. Patient to take oral medications. . 02/25/17. Glioblastoma. Hypertension. Hyperlipidemia. GERD area Patient have modified barium swallow today. Patient to see a radiation oncologist at 1 p.m. today. Patient voices no complaints. . 02/26/17. Glioblastoma. Hypertension. Hyperlipidemia. GERD. Patient passed modified barium swallow study. Patient told me about seeing radiation oncology as yesterday. Patient to go to [facility] next Thu.. . 12 square-shaped clear 17. Glioblastoma. Hypertension. Hyperlipidemia. GERD. Patient positive. Patient has pain in left hip and knee Clinical Quality Measures DVT/VTE Risk/Contraindication: Risk Factor Score Per Nursin RFS Level Per Nursing on Admit: 4+=Very High GANESH HEADLEY DO Feb 27, 2017 08:08
[2017-02-27] MEDS: DEXAMETHASONE 4 MG TAB (DECADRON) PEG SCH ×2 (08:25→20:40)
[2017-02-27] MEDS: LEVETIRACETAM 1,000 MG (KEPPRA) TABLET PO SCH ×2 (08:25→20:40)
[2017-02-27] MEDS: FAMOTIDINE 20 MG (PEPCID) TABLET PEG SCH (08:25)
[2017-02-27] MEDS: ENOXAPARIN 40 MG/0.4 ML (LOVENOX) SYR SC SCH (08:26)
--- NOTE | 2017-02-27 09:03 | Physical Therapy Daily Note ---
PT Daily Note-Current Subjective Patient in wheelchair pre tx, agrees to PT, has no complaints of pain. Appearance Patient in wheelchair post tx with nurse call, phone, tray, all needs met. Mental Status Patient Orientation: Person, Place, Situation Transfers Functional [place] Measure 0=Not Assessed/NA 4=Minimal Assistance 1=Total Assistance 5=Supervision or Setup 2=Maximal Assistance 6=Modified [place] 3=Moderate Assistance 7=Complete IndependenceIRFPAI Quality Coding Scale 6 Independent with activity with or without an assistive device 5 Patient requires set up or clean up by helper. Patient completes activity by themselves 4 Supervision or touching assist (CGA). [place] provide cues , steadying assist 3 The helper provides less than half the effort to complete the activity 2 The helper provides more than half the effort to complete the activity 1 Dependent. The helper does all the effort to complete an activity 7 Patient refused to complete or attempt activity 9 The patient did not perform the activity before the current illness or injury 88 Not attempted due to Medical conditions or safety concerns Transfers (B, C, W/C) (FIM): 4 Sit to/from Stand: 4 Bed to/from Chair: 4 Weight Bearing Right Lower Extremity: Right Weight Bearing/Tolerated Left Lower Extremity: Left Weight Bearing/Tolerated Gait Training Gait (FIM): 2 Distance: 20', 30', 50' Gait Level of Assist: 4 Gait Persons Needed: 1 Gait Assistive Device: FWW Wheelchair follow, min assist. Patient states she has some left knee soreness from the bracing yesterday and does not want to use it again. Patient has left knee hyperextension and trendelenburg gait, but it is more than that, her hip musculature is very weak especially on the left side and her hip leans to the left quite a bit during weight bearing. Wheelchair Training Does the Pt Use a Wheelchair?: Yes Wheelchair (FIM): 2 Distance: 100' Wheelchair Level of Assist: 5 Type of Wheelchair: Manual Exercises LAQ for 5 min with 2# ankle weights NuStep Minutes: 15 NuStep Workload: 5 Assessment Current Status: Fair Progress improving endurance, ambulation PT Short Term Goals Short Term Goals Time Frame: Feb 25, 2017 Transfers (B,C,W/C) (FIM): 4 Gait (FIM): 1 Gait Distance Comment: 10' Gait Level of Assist: 3 Gait Assistive Device: Parallel Bars Wheelchair (FIM): 2 Wheelchair Distance: 100' Wheelchair Level of Assist: 4 PT Mcfp Goals Mcfp Goals PT Mcfp Goals Time Frame: Mar 11, 2017 Transfers (B,C,W/C) (FIM): 4 Sit to Lying (QC): 4 Lying-Sitting on Side/Bed(QC): 4 Sit to Stand (QC): 3 Rollin Roll Left to Right (QC): 4 Chair/Ieh-zv-Pzdup Xfer(QC): 3 Car Transfer (QC): 3 Does the Patient Walk: No and Walking Goal IS indicated Gait (FIM): 1 Distance: 20' Walk 10 feet (QC): 3 Gait Level of Assist: 4 Gait Assistive Device: FWW Does the Pt use WC or Scooter?: Yes Wheelchair (FIM): 4 Distance: 150' Wheelchair Level of Assist: 4 Wheel 50 feet with 2 turns (QC: 3 Stairs (FIM): 1 # of Steps: 1 1 Step (curb) (QC): 3 4 Steps (QC): 88 12 Steps (QC): 88 Stairs Level Of Assist: 4 Picking up an Object (QC): 88 PT Plan Problem List Problem List: Activity Tolerance, Functional Strength, Safety, Balance, Gait, Transfer, Bed Mobility, ROM Treatment/Plan Treatment Plan: Continue Plan of Care Treatment Plan: Bed Mobility, Concurrent Therapy, Education, Functional Activity Alicia, Functional Strength, Group Therapy, Gait, Safety, Therapeutic Exercise, Transfers Treatment Duration: Mar 11, 2017 Frequency: At least 5 of 7 days/Wk (IRF) Estimated Hrs Per Day: 1.5 hours per day Patient and/or Family Agrees t: Yes Safety Risks/Education Patient Education: Gait Training, Transfer Techniques, Correct Positioning, W/ C Management, Safety Issues Teaching Recipient: Patient Teaching Methods: Demonstration, Discussion Response to Teaching: Reinforcement Needed Time/GCodes Time In: 800 Time Out: 900 Total Billed Treatment Time: 60 Total Billed Treatment 1 visit EX 30' GT 30' NGUYEN HUITRON PT Feb 27, 2017 09:03
[2017-02-27 09:17] VITALS: BP 109/73
[2017-02-27] MEDS ORDERED: DICLOFENAC 1% GEL 100 GM (VOLTAREN) TUBE TOP PRN (09:45)
[2017-02-27] MEDS: amLODIPine 5 MG (NORVASC) TAB PEG SCH (09:58)
[2017-02-27] MEDS ORDERED: amLODIPine 2.5MG (NORVASC) TAB PO NR (10:00)
[2017-02-27] MEDS: ACETAMINOPHEN 325 MG TABLET/CAPLET (TYLENOL) PO PRN ×2 (11:10→18:11)
[2017-02-27] MEDS: ATENOLOL 50 MG (TENORMIN) TAB PEG SCH (11:10)
--- NOTE | 2017-02-27 11:14 | Speech Therapy Daily Note ---
Speech Daily Progress Note Subjective Date Seen by Provider: Feb 27, 2017 Time Seen by Provider: 10:35 The patient was seated upright in bed and had recently returned from her oncology appointment. The patient greeted the clinician appropriately and was agreeable to participation in the cognitive treatment session. Objective Functional Memory Strategies (external): External memory strategies were discussed on this date with high accuracy. The patient stated her and Ori (her ) share an electronic calendar and she keeps a paper calendar at home. She stated Ori manages most of her appointments and reminds her of upcoming dates. The patient and her use a "[employer]" chandu on their phones which lists their medication and sets and alarm to remind them when to take them. The patient was encouraged to follow a routine in attempts to improve recall of daily tasks. Assessment Assessment Current Status: Good Progress Treatment Plan Continue Plan of Care Communication Comprehension: 4 Expression: 4 Social Cognition Social Interaction: 4 Problem Solvin Memory: 3 Speech Short Term Goals Short Term Goals Short Term Goals 1. The patient will demonstrate oropharyngeal swallowing exercises with 80% accuracy, independently. 2. The patient will recall and demonstrate three functional memory strategies for use at home with mild clinician verbal cueing. Time Frame-STG: Two Weeks Speech Longterm Goals [employer] Goals 1. The patient will demonstrate the least restrictive diet without signs/ symptoms of aspiration or laryngeal penetration. 2. The patient will demonstrate improved functional memory and use of memory strategies for increased function and safety at home. Time Frame: Three Weeks Speech-Plan Treatment Plan Speech Therapy Treatment Plan: Continue Plan of Care Continue skilled speech pathology to target functional memory strategies. Treatment Duration: Mar 12, 2017 Frequency: Modified Program (IRF) (Four to Five Times per Week) Estimated Hrs Per Day: .5 hour per day Rehab Potential: Guarded Safety Risks/Education Teaching Recipient: Patient Teaching Methods: Demonstration, Handout, Discussion Response to Teaching: Verbalize Understanding, Return Demonstration Education Topics Provided: Functional Memory Strategies Time Speech Therapy Time In: 10:35 Speech Therapy Time Out: 11:05 Total Billed Time: 30 Billed Treatment Time 1GEORGEBRITTA G[address]TA[address] ST Feb 27, 2017 11:14
--- NOTE | 2017-02-27 12:56 | Occupational Ther Daily Note ---
OT Current Status-Daily Note Subjective Pt sleeping in bed, woke to name. Pt required encouragement to participate in therapy. Pt did agree to therapy. No c/o pain at this time. Mental Status/Objective Patient Orientation: Person, Place, Time, Situation Functional [place] Measure 0=Not Assessed/NA 4=Minimal Assistance 1=Total Assistance 5=Supervision or Setup 2=Maximal Assistance 6=Modified [place] 3=Moderate Assistance 7=Complete [place] ADL-Treatment Functional [place] Measure 0=Not Assessed/NA 4=Minimal Assistance 1=Total Assistance 5=Supervision or Setup 2=Maximal Assistance 6=Modified [place] 3=Moderate Assistance 7=Complete IndependenceIRFPAI Quality Coding Scale 6 Independent with activity with or without an assistive device 5 Patient requires set up or clean up by helper. Patient completes activity by themselves 4 Supervision or touching assist (CGA). [place] provide cues , steadying assist 3 The helper provides less than half the effort to complete the activity 2 The helper provides more than half the effort to complete the activity 1 Dependent. The helper does all the effort to complete an activity 7 Patient refused to complete or attempt activity 9 The patient did not perform the activity before the current illness or injury 88 Not attempted due to Medical conditions or safety concerns Other Treatment Pt required assist to scoot up in bed. Pt c/o being tired due to a procedure completed in am. Pt then completed therapy foam exercises (medium resistance). Pt educated on 3 exercises to work on pinch and hand strength for daily functional tasks. 3 sets of 5 reps. After therapy, pt lying in bed with call light/phone in reach. All needs met in room. present in room. Education OT Patient Education: Exercise program Teaching Recipient: Patient, Family Teaching Methods: Demonstration, Discussion Response to Teaching: Verbalize Understanding, Return Demonstration, Reinforcement Needed OT Short Term Goals Short Term Goals Time Frame: Mar 04, 2017 Eating(FIM): 5 Grooming(FIM): 5 Bathing(FIM): 4 Upper Body Dressing(FIM): 5 Lower Body Dressing(FIM): 4 Toileting(FIM): 4 Transfers (B,C,W/C) (FIM): 4 Toilet/Commode Transfer(FIM): 4 Shower Transfer(FIM): 3 Additional Short Term Goals: 1-Demonstrate ADL Tasks, 2-Verbalize Understanding , 3-ImproveStrength/Alicia 1=Demonstrate adherence to instructed precautions during ADL tasks. 2=Patient will verbalize/demonstrate understanding of assistive devices/ modifications for ADL. 3=Patient will improve strength/tolerance for activity to enable patient to perform ADL's. OT Half-Way Goals [employer] Specialist Goals Time Frame: Mar 18, 2017 Eating (FIM): 6 Eating (QC): 6 Groomin Oral Hygiene (QC): 5 Bathing(FIM): 4 Shower/Bathe Self (QC): 4 Upper Body Dressing(FIM): 5 Upper Body Dressing (QC): 5 Lower Body Dressing(FIM): 5 Lower Body Dressing (QC): 5 On/Off Footwear (QC): 5 Toileting(FIM): 5 Toileting Hygiene (QC): 5 Transfers (B,C,W/C) (FIM): 5 Toilet/Commode Transfer(FIM): 5 Toilet/Commode Transfer (QC): 5 Shower Transfer(FIM): 4 Additional Goals: 1-Demonstrate ADL Tasks, 2-Verbalize Understanding, 3- ImproveStrength/Alicia 1=Demonstrate adherence to instructed precautions during ADL tasks. 2=Patient will verbalize/demonstrate understanding of assistive devices/ modifications for ADL. 3=Patient will improve strength/tolerance for activity to enable patient to perform ADL's. OT Education/Plan Discharge Recommendations Plan/Recommendations: Continue POC Treatment Plan/Plan of Care Patient would benefit from OT for education, treatment and training to promote independence in ADL's, mobility, safety and/or upper extremity function for ADL' s. Plan of Care: ADL Retraining, Caregiver Training, Cognitive Retraining, Functional Mobility, Group Exercise/Act as Ind, UE Funct Exercise/Act Treatment Duration: Mar 18, 2017 Frequency: At least 5 of 7 days/Wk (IRF) Estimated Hrs Per Day: 1.5 hours per day Agreement: Yes Rehab Potential: Guarded Time/GCodes Start Time: 12:30 Stop Time: 12:45 Total Time Billed (hr/min): 15 Billed Treatment Time 1 visit-EX 1 (15 min) JUANI LOTT Feb 27, 2017 12:56
--- NOTE | 2017-02-27 15:04 | Physical Therapy Daily Note ---
PT Daily Note-Current Subjective Patient requested bathroom use. Pain Numeric Pain Scale: 0-No Pain Location: No Pain Reported Mental Status Patient Orientation: Person, Time, Situation Transfers Functional [place] Measure 0=Not Assessed/NA 4=Minimal Assistance 1=Total Assistance 5=Supervision or Setup 2=Maximal Assistance 6=Modified [place] 3=Moderate Assistance 7=Complete IndependenceIRFPAI Quality Coding Scale 6 Independent with activity with or without an assistive device 5 Patient requires set up or clean up by helper. Patient completes activity by themselves 4 Supervision or touching assist (CGA). [place] provide cues , steadying assist 3 The helper provides less than half the effort to complete the activity 2 The helper provides more than half the effort to complete the activity 1 Dependent. The helper does all the effort to complete an activity 7 Patient refused to complete or attempt activity 9 The patient did not perform the activity before the current illness or injury 88 Not attempted due to Medical conditions or safety concerns Transfers (B, C, W/C) (FIM): 3 Scootin Rollin Roll Left to Right (QC): 4 Supine to/from Sit: 3 Sit to/from Stand: 3 Sit to Lying (QC): 3 Sit to Stand (QC): 3 Weight Bearing Right Lower Extremity: Right Weight Bearing/Tolerated Left Lower Extremity: Left Weight Bearing/Tolerated Gait Training Does the Patient Walk?: Yes Gait (FIM): 1 Distance (FIM): 1=up to 49 ft Distance: 20' x 2 Walk 10 feet (QC): 3 Gait Level of Assist: 3 Gait Persons Needed: 1 Gait Assistive Device: FWW severe lean to right with inability to self correct Exercises Supine Ex: Ankle pumps, Quad Set, Lower trunk rotation, Heel Slides, Straight leg raise, Hip abd/add Supine Reps: 10 Assessment Patient c/o dizziness and fatigue. Limited by weakness and deconditioned state. PT Short Term Goals Short Term Goals Time Frame: Feb 25, 2017 Transfers (B,C,W/C) (FIM): 4 Gait (FIM): 1 Gait Distance Comment: 10' Gait Level of Assist: 3 Gait Assistive Device: Parallel Bars Wheelchair (FIM): 2 Wheelchair Distance: 100' Wheelchair Level of Assist: 4 PT Co Op Goals [facility] Goals PT Co Op Goals Time Frame: Mar 11, 2017 Transfers (B,C,W/C) (FIM): 4 Sit to Lying (QC): 4 Lying-Sitting on Side/Bed(QC): 4 Sit to Stand (QC): 3 Rollin Roll Left to Right (QC): 4 Chair/Qkb-we-Nugpy Xfer(QC): 3 Car Transfer (QC): 3 Does the Patient Walk: No and Walking Goal IS indicated Gait (FIM): 1 Distance: 20' Walk 10 feet (QC): 3 Gait Level of Assist: 4 Gait Assistive Device: FWW Does the Pt use WC or Scooter?: Yes Wheelchair (FIM): 4 Distance: 150' Wheelchair Level of Assist: 4 Wheel 50 feet with 2 turns (QC: 3 Stairs (FIM): 1 # of Steps: 1 1 Step (curb) (QC): 3 4 Steps (QC): 88 12 Steps (QC): 88 Stairs Level Of Assist: 4 Picking up an Object (QC): 88 PT Plan Treatment/Plan Treatment Plan: Continue Plan of Care Treatment Plan: Bed Mobility, Concurrent Therapy, Education, Functional Activity Alicia, Functional Strength, Group Therapy, Gait, Safety, Therapeutic Exercise, Transfers Treatment Duration: Mar 11, 2017 Frequency: At least 5 of 7 days/Wk (IRF) Estimated Hrs Per Day: 1.5 hours per day Patient and/or Family Agrees t: Yes Time/GCodes Time In: 1445 Time Out: 1500 Total Billed Treatment Time: 15 Total Billed Treatment 1 visit FA 15 min PENNY LARA PT Feb 27, 2017 15:04
[2017-02-27 18:03] VITALS: BP 101/66
[2017-02-27] MEDS: ATORVASTATIN 80 MG (LIPITOR) TABLET PEG SCH (20:40)
[2017-02-28 03:00] VITALS: BP 113/73
[2017-02-28 05:22] VITALS: BP 113/73
[2017-02-28] MEDS: CYANOCOBALAMIN 500 MCG TAB (VITAMIN B-12) PEG SCH (06:10)
[2017-02-28] MEDS: PANTOPRAZOLE 20 MG TABLET (PROTONIX) PO SCH (06:10)
[2017-02-28 07:50] VITALS: BP 113/70
--- NOTE | 2017-02-28 08:26 | Physical Therapy Daily Note ---
PT Daily Note-Current Subjective Pt agrees to Rx. Wants clothes on before Rx. Pain Numeric Pain Scale: 0-No Pain Transfers Functional [place] Measure 0=Not Assessed/NA 4=Minimal Assistance 1=Total Assistance 5=Supervision or Setup 2=Maximal Assistance 6=Modified [place] 3=Moderate Assistance 7=Complete IndependenceIRFPAI Quality Coding Scale 6 Independent with activity with or without an assistive device 5 Patient requires set up or clean up by helper. Patient completes activity by themselves 4 Supervision or touching assist (CGA). [place] provide cues , steadying assist 3 The helper provides less than half the effort to complete the activity 2 The helper provides more than half the effort to complete the activity 1 Dependent. The helper does all the effort to complete an activity 7 Patient refused to complete or attempt activity 9 The patient did not perform the activity before the current illness or injury 88 Not attempted due to Medical conditions or safety concerns Transfers (B, C, W/C) (FIM): 4 Scootin Rollin Supine to/from Sit: 4 Sit to/from Stand: 4 Weight Bearing Right Lower Extremity: Right Weight Bearing/Tolerated Left Lower Extremity: Left Weight Bearing/Tolerated Gait Training Does the Patient Walk?: Yes Gait (FIM): 1 Distance (FIM): 1=up to 49 ft (8) Gait Level of Assist: 3 Gait Persons Needed: 1 Gait Assistive Device: FWW Wheelchair Training Does the Pt Use a Wheelchair?: Yes Wheelchair (FIM): 4 Wheelchair Distance: 3=150 ft (x2) Wheelchair Level of Assist: 4 Type of Wheelchair: Manual Exercises Supine Ex: Ankle pumps, Rolling, Heel Slides, Hip abd/add Supine Reps: 12 Seated Therapy Exercises: Sit to stand, Long arc quads, Hip flexion Seated Reps: 10 Treatments standing balance exercise in parallel bars for shifting and marching Assessment Current Status: Good Progress PT Short Term Goals Short Term Goals Time Frame: Feb 25, 2017 Transfers (B,C,W/C) (FIM): 4 Gait (FIM): 1 Gait Distance Comment: 10' Gait Level of Assist: 3 Gait Assistive Device: Parallel Bars Wheelchair (FIM): 2 Wheelchair Distance: 100' Wheelchair Level of Assist: 4 PT Refueling [place] Goals [facility] Goals PT [facility] Goals Time Frame: Mar 11, 2017 Transfers (B,C,W/C) (FIM): 4 Sit to Lying (QC): 4 Lying-Sitting on Side/Bed(QC): 4 Sit to Stand (QC): 3 Rollin Roll Left to Right (QC): 4 Chair/Qxe-ja-Vvioa Xfer(QC): 3 Car Transfer (QC): 3 Does the Patient Walk: No and Walking Goal IS indicated Gait (FIM): 1 Distance: 20' Walk 10 feet (QC): 3 Gait Level of Assist: 4 Gait Assistive Device: FWW Does the Pt use WC or Scooter?: Yes Wheelchair (FIM): 4 Distance: 150' Wheelchair Level of Assist: 4 Wheel 50 feet with 2 turns (QC: 3 Stairs (FIM): 1 # of Steps: 1 1 Step (curb) (QC): 3 4 Steps (QC): 88 12 Steps (QC): 88 Stairs Level Of Assist: 4 Picking up an Object (QC): 88 PT Plan Treatment/Plan Treatment Plan: Continue Plan of Care Treatment Plan: Bed Mobility, Concurrent Therapy, Education, Functional Activity Alicia, Functional Strength, Group Therapy, Gait, Safety, Therapeutic Exercise, Transfers Treatment Duration: Mar 11, 2017 Frequency: At least 5 of 7 days/Wk (IRF) Estimated Hrs Per Day: 1.5 hours per day Patient and/or Family Agrees t: Yes Safety Risks/Education Patient Education: Gait Training, Transfer Techniques, Correct Positioning, W/ C Management, Disease Process, Safety Issues Teaching Recipient: Patient Teaching Methods: Demonstration, Discussion Response to Teaching: Verbalize Understanding, Return Demonstration, Reinforcement Needed Time/GCodes Time In: 755 Time Out: 820 Total Billed Treatment Time: 25 Total Billed Treatment 1,FA15, WC10 G Codes Necessary: JOCELYNE Bernal PTA Feb 28, 2017 08:26
[2017-02-28] MEDS: FAMOTIDINE 20 MG (PEPCID) TABLET PEG SCH (08:31)
[2017-02-28] MEDS: LEVETIRACETAM 1,000 MG (KEPPRA) TABLET PO SCH ×2 (08:31→20:09)
[2017-02-28] MEDS: ATENOLOL 50 MG (TENORMIN) TAB PEG SCH (08:31)
[2017-02-28] MEDS: DEXAMETHASONE 4 MG TAB (DECADRON) PEG SCH ×2 (08:31→20:08)
[2017-02-28] MEDS: SENNA W/DOCUSATE (SENOKOT S) TABLET PEG PRN (08:31)
[2017-02-28] MEDS: amLODIPine 2.5MG (NORVASC) TAB PO SCH (08:31)
[2017-02-28] MEDS: ENOXAPARIN 40 MG/0.4 ML (LOVENOX) SYR SC SCH (08:32)
[2017-02-28 17:57] VITALS: BP 113/73
[2017-02-28] MEDS: ATORVASTATIN 80 MG (LIPITOR) TABLET PEG SCH (20:09)
[2017-02-28] MEDS: ACETAMINOPHEN 325 MG TABLET/CAPLET (TYLENOL) PO PRN (21:57)
[2017-03-01 05:10] VITALS: BP 128/75
[2017-03-01] MEDS: CYANOCOBALAMIN 500 MCG TAB (VITAMIN B-12) PEG SCH (05:46)
[2017-03-01] MEDS: PANTOPRAZOLE 20 MG TABLET (PROTONIX) PO SCH (05:46)
[2017-03-01] MEDS: FAMOTIDINE 20 MG (PEPCID) TABLET PEG SCH (08:40)
[2017-03-01] MEDS: amLODIPine 2.5MG (NORVASC) TAB PO SCH (08:40)
[2017-03-01] MEDS: LEVETIRACETAM 1,000 MG (KEPPRA) TABLET PO SCH ×2 (08:40→19:44)
[2017-03-01] MEDS: ATENOLOL 50 MG (TENORMIN) TAB PEG SCH (08:40)
[2017-03-01] MEDS: DEXAMETHASONE 4 MG TAB (DECADRON) PEG SCH ×2 (08:40→19:44)
[2017-03-01] MEDS: ENOXAPARIN 40 MG/0.4 ML (LOVENOX) SYR SC SCH (08:41)
--- NOTE | 2017-03-01 12:01 | Progress Note-Hospitalist ---
Progress Note Progress Notes/Assess & Plan Date Seen 03/01/17 Time Seen by Provider: 11:30 Diagonsis/Assessment & Plan Pt doing well. Weaker though. [facility] Thursday then will need to go to Swing Bed Bowels are moving c/o muscle weakness of her legs since she has lost 40# AFVSS, [place], O x 3 RRR, CTAB A/P: Glioblastoma Severe weakness Profound wt loss Rehab protocol DAVID EVANS DO Mar 01, 2017 12:01
[2017-03-01 18:14] VITALS: BP 105/68
[2017-03-01] MEDS: ATORVASTATIN 80 MG (LIPITOR) TABLET PEG SCH (19:44)
[2017-03-02] MEDS: ACETAMINOPHEN 325 MG TABLET/CAPLET (TYLENOL) PO PRN ×2 (00:13→18:11)
[2017-03-02] MEDS: PANTOPRAZOLE 20 MG TABLET (PROTONIX) PO SCH (05:32)
[2017-03-02] MEDS: CYANOCOBALAMIN 500 MCG TAB (VITAMIN B-12) PEG SCH (05:32)
[2017-03-02 05:35] VITALS: BP 117/72
--- NOTE | 2017-03-02 07:42 | Occupational Ther Daily Note ---
OT Current Status-Daily Note Subjective Pt alert, lying in bed. Pt had ordered breakfast. Pt agreed to therapy. No c/ o pain at this time. Pt is anxious about using FWW in room. Pt was reassured that someone would be there to assist, just needed to call for help. Mental Status/Objective Patient Orientation: Person, Place, Time, Situation Functional [place] Measure 0=Not Assessed/NA 4=Minimal Assistance 1=Total Assistance 5=Supervision or Setup 2=Maximal Assistance 6=Modified [place] 3=Moderate Assistance 7=Complete [place] Attachments: PEG Tube ADL-Treatment Pt able to open all containers/packages to set up breakfast then using regular utensils able to feed self. With HOB raised, pt is able to ambulate with min A using FWW to bathroom. Pt transferred to toilet with min A using grabbar and FWW. Pt able to cleanse self sitting on toilet, assist to hike pants over hips. Pt fearful of falling forward and has difficult time keeping L knee stabilized in extension when standing to hike pants up or down. Pt then ambulated to shower using FWW and transferred with min A using grabbars and shower bench. Pt then bathed self using grabbars, shower bench and hand held shower. Pt leaned side to side to cleanse buttocks. Pt then rinsed self and dried self. After set up pt able to don/doff shirt then assist to hook bra in back. Pt able to don/doff lower body clothing over legs then assist in standing to hike pants over hips. After assist positioning w/c in front of sink , pt is able to complete own grooming. Pt took increased time to complete all ADLs due to slow methodical movements and anxiety over fatigue and falling. After therapy, pt sitting in w/c with nrsg present. All needs met in room. Functional [place] Measure 0=Not Assessed/NA 4=Minimal Assistance 1=Total Assistance 5=Supervision or Setup 2=Maximal Assistance 6=Modified [place] 3=Moderate Assistance 7=Complete IndependenceIRFPAI Quality Coding Scale 6 Independent with activity with or without an assistive device 5 Patient requires set up or clean up by helper. Patient completes activity by themselves 4 Supervision or touching assist (CGA). [place] provide cues , steadying assist 3 The helper provides less than half the effort to complete the activity 2 The helper provides more than half the effort to complete the activity 1 Dependent. The helper does all the effort to complete an activity 7 Patient refused to complete or attempt activity 9 The patient did not perform the activity before the current illness or injury 88 Not attempted due to Medical conditions or safety concerns Eating (FIM): 6 Eating (QC): 6 Grooming (FIM): 5 Oral Hygiene (QC): 6 Bathing (FIM): 5 Bathing Location: L Arm, R Arm, L Upper Leg, R Upper Leg, L Lower Leg ( including foot), R Lower Leg (including foot), Chest, Abdomen, Buttocks, Perineal Area Shower/Bathe Self (QC): 4 Upper Body (FIM): 4 Upper Body Dressing (QC): 3 Lower Body Dressing (FIM): 4 Lower Body Dressing (QC): 3 On/Off Footwear (QC): 5 Toileting (FIM): 4 Toileting Hygiene (QC): 4 Transfers (B, C, W/C) (FIM): 4 Toilet/Commode Transfer (FIM): 4 Toilet Transfer (QC): 3 Shower Transfer(FIM): 4 OT Short Term Goals Short Term Goals Time Frame: Mar 04, 2017 Eating(FIM): 5 Grooming(FIM): 5 Bathing(FIM): 4 Upper Body Dressing(FIM): 5 Lower Body Dressing(FIM): 4 Toileting(FIM): 4 Transfers (B,C,W/C) (FIM): 4 Toilet/Commode Transfer(FIM): 4 Shower Transfer(FIM): 3 Additional Short Term Goals: 1-Demonstrate ADL Tasks, 2-Verbalize Understanding , 3-ImproveStrength/Alicia 1=Demonstrate adherence to instructed precautions during ADL tasks. 2=Patient will verbalize/demonstrate understanding of assistive devices/ modifications for ADL. 3=Patient will improve strength/tolerance for activity to enable patient to perform ADL's. OT Mcc Goals Mcc Goals Time Frame: Mar 18, 2017 Eating (FIM): 6 Eating (QC): 6 Groomin Oral Hygiene (QC): 5 Bathing(FIM): 4 Shower/Bathe Self (QC): 4 Upper Body Dressing(FIM): 5 Upper Body Dressing (QC): 5 Lower Body Dressing(FIM): 5 Lower Body Dressing (QC): 5 On/Off Footwear (QC): 5 Toileting(FIM): 5 Toileting Hygiene (QC): 5 Transfers (B,C,W/C) (FIM): 5 Toilet/Commode Transfer(FIM): 5 Toilet/Commode Transfer (QC): 5 Shower Transfer(FIM): 4 Additional Goals: 1-Demonstrate ADL Tasks, 2-Verbalize Understanding, 3- ImproveStrength/Alicia 1=Demonstrate adherence to instructed precautions during ADL tasks. 2=Patient will verbalize/demonstrate understanding of assistive devices/ modifications for ADL. 3=Patient will improve strength/tolerance for activity to enable patient to perform ADL's. OT Education/Plan Discharge Recommendations Plan/Recommendations: Continue POC Treatment Plan/Plan of Care Patient would benefit from OT for education, treatment and training to promote independence in ADL's, mobility, safety and/or upper extremity function for ADL' s. Plan of Care: ADL Retraining, Caregiver Training, Cognitive Retraining, Functional Mobility, Group Exercise/Act as Ind, UE Funct Exercise/Act Treatment Duration: Mar 18, 2017 Frequency: At least 5 of 7 days/Wk (IRF) Estimated Hrs Per Day: 1.5 hours per day Agreement: Yes Rehab Potential: Guarded Time/GCodes Start Time: 06:53 Stop Time: 08:30 Total Time Billed (hr/min): 97 Billed Treatment Time 1 visit-ADL 6 (97 min) JUANI LOTT Mar 02, 2017 07:42
--- NOTE | 2017-03-02 07:57 | Progress Note (SOAP) ---
Subjective Time Seen by Provider: 07:55 Subjective/Events-last exam glioblastoma. Patient has no complaints today. Patient taken a bath. Patient had a mask on Thursday Speech is better Objective Exam Vital Signs Date Time Temp Pulse Resp B/P (MAP) Pulse Ox O2 Delivery O2 Flow Rate FiO2 03/02/17 05:35 98.4 65 18 117/72 (87) 98 Room Air 03/01/17 19:50 Room Air 03/01/17 18:14 99.0 76 16 105/68 (80) 97 Room Air 03/01/17 08:42 Room Air I & O 03/02/17 07:00 Intake Total 1530 ml Balance 1530 ml Capillary Refill : General Appearance: No Apparent Distress, WD/WN Assessment/Plan Assessment/Plan Assess & Plan/Chief Complaint glioblastoma. Hypertension. Hyperlipidemia. GERD. Viral encephalitis. Chronic constipation. Vitamin B12 deficiency. Vitamin D deficiency. . 02/19/17. Glioblastoma. Hypertension. Hyperlipidemia. GERD Vitamin B12 deficiency. Vitamin D deficiency. Patient feeling better this morning. . Glioblastoma. Hypertension. Hyperlipidemia. GERD. Patient has trouble with thought process.. . 03/08. Glioblastoma. Hypertension under control. Hyperlipidemia. GERD. Patient's confusion is less. . 02/24/17. Glioblastoma. Hypertension. Hyperlipidemia. GERD. Patient talked better today. Patient to take oral medications. . 02/25/17. Glioblastoma. Hypertension. Hyperlipidemia. GERD area Patient have modified barium swallow today. Patient to see a radiation oncologist at 1 p.m. today. Patient voices no complaints. . 02/26/17. Glioblastoma. Hypertension. Hyperlipidemia. GERD. Patient passed modified barium swallow study. Patient told me about seeing radiation oncology as yesterday. Patient to go to [facility] next Thu.. . 12 square-shaped clear 17. Glioblastoma. Hypertension. Hyperlipidemia. GERD. Patient positive. Patient has pain in left hip and knee. . 03/02/17. Glioblastoma. Hypertension. Hyperlipidemia. gERD. Patient speech is better Clinical Quality Measures DVT/VTE Risk/Contraindication: Risk Factor Score Per Nursin RFS Level Per Nursing on Admit: 4+=Very High GANESH HEADLEY DO Mar 02, 2017 07:57
[2017-03-02] MEDS: amLODIPine 2.5MG (NORVASC) TAB PO SCH (08:10)
[2017-03-02] MEDS: DEXAMETHASONE 4 MG TAB (DECADRON) PEG SCH ×2 (08:11→20:29)
[2017-03-02] MEDS: VITAMIN D2 50,000 UNITS (1.25 MG) CAP PO SCH (08:11)
[2017-03-02] MEDS: LEVETIRACETAM 1,000 MG (KEPPRA) TABLET PO SCH ×2 (08:12→20:29)
[2017-03-02] MEDS: ENOXAPARIN 40 MG/0.4 ML (LOVENOX) SYR SC SCH (08:12)
[2017-03-02] MEDS: FAMOTIDINE 20 MG (PEPCID) TABLET PEG SCH (08:12)
[2017-03-02] MEDS: ATENOLOL 50 MG (TENORMIN) TAB PEG SCH (08:12)
[2017-03-02] MEDS: DOCUSATE SODIUM 100 MG (COLACE) CAP PO SCH ×2 (09:33→20:29)
--- NOTE | 2017-03-02 09:52 | Physical Therapy Daily Note ---
PT Daily Note-Current Subjective Agreeable to PT. Pt tells this therapist of plans for travel to [facility] on Thursday and then notes, "after that....we will just see." no complaints of pain. Mental Status Patient Orientation: Person, Place, Time, Situation Oriented x 4 but tends to have slight awareness difficulties and she needs task or routine repeated more than once. Transfers Functional [place] Measure 0=Not Assessed/NA 4=Minimal Assistance 1=Total Assistance 5=Supervision or Setup 2=Maximal Assistance 6=Modified [place] 3=Moderate Assistance 7=Complete IndependenceIRFPAI Quality Coding Scale 6 Independent with activity with or without an assistive device 5 Patient requires set up or clean up by helper. Patient completes activity by themselves 4 Supervision or touching assist (CGA). [place] provide cues , steadying assist 3 The helper provides less than half the effort to complete the activity 2 The helper provides more than half the effort to complete the activity 1 Dependent. The helper does all the effort to complete an activity 7 Patient refused to complete or attempt activity 9 The patient did not perform the activity before the current illness or injury 88 Not attempted due to Medical conditions or safety concerns Transfers (B, C, W/C) (FIM): 4 Sit to/from Stand: 4 Chair/Oqc-hb-Dvuri Xfer(QC): 4 SPT x 4 with FWW with min assist and skilled cues for hand placment and safety cues. Pt is unsteady with initial standing and with the transfer. Weight Bearing Right Lower Extremity: Right Weight Bearing/Tolerated Left Lower Extremity: Left Weight Bearing/Tolerated Gait Training Does the Patient Walk?: Yes Gait (FIM): 2 Distance (FIM): 1=up to 49 ft Distance: 40 ft x 2 Gait Level of Assist: 3 Gait Persons Needed: 2 (Therapist at gait belt and tech following closely with ) Gait Assistive Device: FWW Pt tends to veer to the right and is unsteady with walking with uncoordinated gait at times and needs min assist for balance and asssit to propel the walker in a straight fashion. Without min assist, pt would fall during gait. Wheelchair Training Does the Pt Use a Wheelchair?: Yes Wheelchair (FIM): 2 Wheelchair Distance: 5=530-04 ft Type of Wheelchair: Manual Pt propelled x 100 ft with SBA and was able to turn into her room, but needs assist to back up and position next to the bed. Exercises Seated Therapy Exercises: Ankle pumps, Long arc quads, Hip flexion, Hip abd/add Seated Reps: 15 (to facilitate controlled movement of the LE as well as strengthen for functional transfers and gait. ) Standing: Heel/toe raises, Marching, Mini squats (min assist) Standing Reps: 10 Standing exercise performed for functional strength as well as hip/core control/ training in standing to facilitate improved gait pattern and safety with transfers. Assessment Pt is progressing, gait is unsafe without assist as are transfers. Pt seems to have decreased balance and core control that makes upright mobility difficult and unsafe without assist. PT Short Term Goals Short Term Goals Time Frame: Feb 25, 2017 Transfers (B,C,W/C) (FIM): 4 Gait (FIM): 1 Gait Distance Comment: 10' Gait Level of Assist: 3 Gait Assistive Device: Parallel Bars Wheelchair (FIM): 2 Wheelchair Distance: 100' Wheelchair Level of Assist: 4 PT Volcanologist Goals Skilled Nursing Goals PT Skilled Nursing Goals Time Frame: Mar 11, 2017 Transfers (B,C,W/C) (FIM): 4 Sit to Lying (QC): 4 Lying-Sitting on Side/Bed(QC): 4 Sit to Stand (QC): 3 Rollin Roll Left to Right (QC): 4 Chair/Crq-jh-Mihva Xfer(QC): 3 Car Transfer (QC): 3 Does the Patient Walk: No and Walking Goal IS indicated Gait (FIM): 1 Distance: 20' Walk 10 feet (QC): 3 Gait Level of Assist: 4 Gait Assistive Device: FWW Does the Pt use WC or Scooter?: Yes Wheelchair (FIM): 4 Distance: 150' Wheelchair Level of Assist: 4 Wheel 50 feet with 2 turns (QC: 3 Stairs (FIM): 1 # of Steps: 1 1 Step (curb) (QC): 3 4 Steps (QC): 88 12 Steps (QC): 88 Stairs Level Of Assist: 4 Picking up an Object (QC): 88 PT Plan Problem List Problem List: Activity Tolerance, Functional Strength, Safety, Balance, Gait, Transfer, Bed Mobility Treatment/Plan Treatment Plan: Continue Plan of Care Treatment Plan: Bed Mobility, Concurrent Therapy, Education, Functional Activity Alicia, Functional Strength, Group Therapy, Gait, Safety, Therapeutic Exercise, Transfers Treatment Duration: Mar 11, 2017 Frequency: At least 5 of 7 days/Wk (IRF) Estimated Hrs Per Day: 1.5 hours per day Patient and/or Family Agrees t: Yes Safety Risks/Education Patient Education: Transfer Techniques, Safety Issues Teaching Recipient: Patient Teaching Methods: Demonstration, Discussion Response to Teaching: Reinforcement Needed Time/GCodes Time In: 900 Time Out: 930 Total Billed Treatment Time: 30 Total Billed Treatment visit EX 10 FA 20 JUANI MARIN PT Mar 02, 2017 09:52
--- NOTE | 2017-03-02 10:30 | Physical Therapy Daily Note ---
PT Daily Note-Current Subjective Agreeable to PT again this morning. Talking about a car transfer to prepare for trip to [facility] on Thursday Transfers Functional [place] Measure 0=Not Assessed/NA 4=Minimal Assistance 1=Total Assistance 5=Supervision or Setup 2=Maximal Assistance 6=Modified [place] 3=Moderate Assistance 7=Complete IndependenceIRFPAI Quality Coding Scale 6 Independent with activity with or without an assistive device 5 Patient requires set up or clean up by helper. Patient completes activity by themselves 4 Supervision or touching assist (CGA). [place] provide cues , steadying assist 3 The helper provides less than half the effort to complete the activity 2 The helper provides more than half the effort to complete the activity 1 Dependent. The helper does all the effort to complete an activity 7 Patient refused to complete or attempt activity 9 The patient did not perform the activity before the current illness or injury 88 Not attempted due to Medical conditions or safety concerns Worked on SPT using FWW x 6 reps with CGA and skilled cues for sequencing and hand placement 75% of the time and cues to not drop into the chair. Working on functional transfers as to prepare for as much indep as possible, transfers need to be safe for decreased assist from the caregiver. Pt then propelled wc 150 ft with SBA. SPT chair to bed with FWW with CGA and sit to supine with min assist and min assist and skilled cues for task completion for positioning in bed. Weight Bearing Right Lower Extremity: Right Weight Bearing/Tolerated Left Lower Extremity: Left Weight Bearing/Tolerated Assessment Pt verbalized correct transfer technique but needs reminders as she is doing it to complete correctly. Pt tries very hard to complete correctly. PT Short Term Goals Short Term Goals Time Frame: Feb 25, 2017 Transfers (B,C,W/C) (FIM): 4 Gait (FIM): 1 Gait Distance Comment: 10' Gait Level of Assist: 3 Gait Assistive Device: Parallel Bars Wheelchair (FIM): 2 Wheelchair Distance: 100' Wheelchair Level of Assist: 4 PT Lay Out And Detail Drafter Goals Group Home Goals PT Group Home Goals Time Frame: Mar 11, 2017 Transfers (B,C,W/C) (FIM): 4 Sit to Lying (QC): 4 Lying-Sitting on Side/Bed(QC): 4 Sit to Stand (QC): 3 Rollin Roll Left to Right (QC): 4 Chair/Jaq-wt-Rczcj Xfer(QC): 3 Car Transfer (QC): 3 Does the Patient Walk: No and Walking Goal IS indicated Gait (FIM): 1 Distance: 20' Walk 10 feet (QC): 3 Gait Level of Assist: 4 Gait Assistive Device: FWW Does the Pt use WC or Scooter?: Yes Wheelchair (FIM): 4 Distance: 150' Wheelchair Level of Assist: 4 Wheel 50 feet with 2 turns (QC: 3 Stairs (FIM): 1 # of Steps: 1 1 Step (curb) (QC): 3 4 Steps (QC): 88 12 Steps (QC): 88 Stairs Level Of Assist: 4 Picking up an Object (QC): 88 PT Plan Problem List Problem List: Activity Tolerance, Functional Strength, Safety, Balance, Gait, Transfer, Bed Mobility Treatment/Plan Treatment Plan: Continue Plan of Care Treatment Plan: Bed Mobility, Concurrent Therapy, Education, Functional Activity Alicia, Functional Strength, Group Therapy, Gait, Safety, Therapeutic Exercise, Transfers Treatment Duration: Mar 11, 2017 Frequency: At least 5 of 7 days/Wk (IRF) Estimated Hrs Per Day: 1.5 hours per day Patient and/or Family Agrees t: Yes Safety Risks/Education Patient Education: Transfer Techniques Teaching Recipient: Patient Teaching Methods: Demonstration, Discussion Response to Teaching: Verbalize Understanding, Return Demonstration, Reinforcement Needed Discharge Recommendations Therapy D/C Recommendations: Physical Therapy Home Care Time/GCodes Time In: 1003 Time Out: 1030 Total Billed Treatment Time: 27 Total Billed Treatment visit FA 27 JUANI MARIN PT Mar 02, 2017 10:30
--- NOTE | 2017-03-02 10:43 | Speech Therapy Daily Note ---
Speech Daily Progress Note Subjective Date Seen by Provider: Mar 02, 2017 Time Seen by Provider: 09:30 The patient was seated upright in wheelchair upon entrance. The patient greeted the clinician appropriately and was agreeable to participation in the dysphagia treatment session. Objective Oropharyngeal Exercises: Dysphagia strengthening exercises (base of tongue retraction, pharyngeal contraction, and laryngeal elevation) were continued on this date. The patient displayed fair to good accuracy with all exercises with moderate clinician prompting and an initial direct modeling demonstration. The patient completed five repetitions of each exercise. Assessment Assessment Current Status: Fair Progress Treatment Plan Continue Plan of Care Communication Comprehension: 4 Expression: 4 Social Cognition Social Interaction: 4 Problem Solvin Memory: 3 Speech Short Term Goals Short Term Goals Short Term Goals 1. The patient will demonstrate oropharyngeal swallowing exercises with 80% accuracy, independently. 2. The patient will recall and demonstrate three functional memory strategies for use at home with mild clinician verbal cueing. Time Frame-STG: Two Weeks Speech Experimental Rocket Sled Mechanic Goals Experimental Rocket Sled Mechanic Goals 1. The patient will demonstrate the least restrictive diet without signs/ symptoms of aspiration or laryngeal penetration. 2. The patient will demonstrate improved functional memory and use of memory strategies for increased function and safety at home. Time Frame: Three Weeks Speech-Plan Treatment Plan Speech Therapy Treatment Plan: Continue Plan of Care Continue skilled speech pathology to target improved swallowing safety. Treatment Duration: Mar 12, 2017 Frequency: Modified Program (IRF) (Four to Five Times per Week) Estimated Hrs Per Day: .5 hour per day Rehab Potential: Guarded Safety Risks/Education Teaching Recipient: Patient Teaching Methods: Demonstration, Handout, Discussion Response to Teaching: Return Demonstration, Reinforcement Needed Education Topics Provided: Oropharyngeal Dysphagia Time Speech Therapy Time In: 09:30 Speech Therapy Time Out: 10:00 Total Billed Time: 30 Billed Treatment Time 1ELEAZAR ALTAF AGUILA Mar 02, 2017 10:43
--- NOTE | 2017-03-02 13:54 | Physical Therapy Daily Note ---
PT Daily Note-Current Subjective Pt up in wheelchair and ready for PT. Transfers Functional [place] Measure 0=Not Assessed/NA 4=Minimal Assistance 1=Total Assistance 5=Supervision or Setup 2=Maximal Assistance 6=Modified [place] 3=Moderate Assistance 7=Complete IndependenceIRFPAI Quality Coding Scale 6 Independent with activity with or without an assistive device 5 Patient requires set up or clean up by helper. Patient completes activity by themselves 4 Supervision or touching assist (CGA). [place] provide cues , steadying assist 3 The helper provides less than half the effort to complete the activity 2 The helper provides more than half the effort to complete the activity 1 Dependent. The helper does all the effort to complete an activity 7 Patient refused to complete or attempt activity 9 The patient did not perform the activity before the current illness or injury 88 Not attempted due to Medical conditions or safety concerns Weight Bearing Right Lower Extremity: Right Weight Bearing/Tolerated Left Lower Extremity: Left Weight Bearing/Tolerated Treatments Wheelchair mobility 150 ft x 2 with SBA. Performed SPT x 3 reps with FWW with CGA without noted LOB but with intermittent reminders for hand placement. Reviewed how a car transfer would look, using the nu step to demonstrate. Nu step x 10 minutes for increased functional activitly tolerance. Pt in bed post treatment, needing fewer skilled cues ans assist with bed mobility although still needs min assist to lift her legs into bed. Assessment Current Status: Good Progress Progressing with PT. She is tired this afternoon and hoping to nap. PT Short Term Goals Short Term Goals Time Frame: Feb 25, 2017 Transfers (B,C,W/C) (FIM): 4 Gait (FIM): 1 Gait Distance Comment: 10' Gait Level of Assist: 3 Gait Assistive Device: Parallel Bars Wheelchair (FIM): 2 Wheelchair Distance: 100' Wheelchair Level of Assist: 4 PT Windows Software Engineer Goals Windows Software Engineer Goals PT Fpc Goals Time Frame: Mar 11, 2017 Transfers (B,C,W/C) (FIM): 4 Sit to Lying (QC): 4 Lying-Sitting on Side/Bed(QC): 4 Sit to Stand (QC): 3 Rollin Roll Left to Right (QC): 4 Chair/Eez-le-Qyxbm Xfer(QC): 3 Car Transfer (QC): 3 Does the Patient Walk: No and Walking Goal IS indicated Gait (FIM): 1 Distance: 20' Walk 10 feet (QC): 3 Gait Level of Assist: 4 Gait Assistive Device: FWW Does the Pt use WC or Scooter?: Yes Wheelchair (FIM): 4 Distance: 150' Wheelchair Level of Assist: 4 Wheel 50 feet with 2 turns (QC: 3 Stairs (FIM): 1 # of Steps: 1 1 Step (curb) (QC): 3 4 Steps (QC): 88 12 Steps (QC): 88 Stairs Level Of Assist: 4 Picking up an Object (QC): 88 PT Plan Problem List Problem List: Activity Tolerance, Functional Strength, Safety Treatment/Plan Treatment Plan: Continue Plan of Care Treatment Plan: Bed Mobility, Concurrent Therapy, Education, Functional Activity Alicia, Functional Strength, Group Therapy, Gait, Safety, Therapeutic Exercise, Transfers Treatment Duration: Mar 11, 2017 Frequency: At least 5 of 7 days/Wk (IRF) Estimated Hrs Per Day: 1.5 hours per day Patient and/or Family Agrees t: Yes Safety Risks/Education Patient Education: Transfer Techniques (car transfer) Teaching Recipient: Patient Teaching Methods: Discussion Response to Teaching: Reinforcement Needed Time/GCodes Time In: 1315 Time Out: 1345 Total Billed Treatment Time: 30 Total Billed Treatment visit FA 20 EX 10 JUANI MARIN PT Mar 02, 2017 13:54
[2017-03-02 18:00] VITALS: BP 115/73
[2017-03-02] MEDS: ATORVASTATIN 80 MG (LIPITOR) TABLET PEG SCH (20:30)
[2017-03-03] MEDS: CYANOCOBALAMIN 500 MCG TAB (VITAMIN B-12) PEG SCH (06:10)
[2017-03-03] MEDS: PANTOPRAZOLE 20 MG TABLET (PROTONIX) PO SCH (06:10)
[2017-03-03 06:12] VITALS: BP 118/76
--- NOTE | 2017-03-03 07:52 | Progress Note (SOAP) ---
Subjective Time Seen by Provider: 07:50 Subjective/Events-last exam patient walked around better. Glioblastoma. Patient to go to [facility] tomorrow has appointment at 9 a.m. Patient thought process is improving Objective Exam Vital Signs Date Time Temp Pulse Resp B/P (MAP) Pulse Ox O2 Delivery O2 Flow Rate FiO2 03/03/17 06:12 97.3 68 20 118/76 (90) 97 Room Air 03/02/17 20:30 Room Air 03/02/17 18:00 98.6 67 20 115/73 (87) 95 Room Air 03/02/17 09:05 Room Air I & O 03/03/17 06:59 Intake Total 1865 ml Balance 1865 ml Capillary Refill : General Appearance: No Apparent Distress, WD/WN HEENT: Normal ENT Inspection Neck: Full Range of Motion, Normal Inspection Respiratory: Lungs Clear, No Accessory Muscle Use Cardiovascular: Regular Rate, Rhythm, No Murmur Gastrointestinal: non tender, soft Assessment/Plan Assessment/Plan Assess & Plan/Chief Complaint glioblastoma. Hypertension. Hyperlipidemia. GERD. Viral encephalitis. Chronic constipation. Vitamin B12 deficiency. Vitamin D deficiency. . 02/19/17. Glioblastoma. Hypertension. Hyperlipidemia. GERD Vitamin B12 deficiency. Vitamin D deficiency. Patient feeling better this morning. . Glioblastoma. Hypertension. Hyperlipidemia. GERD. Patient has trouble with thought process.. . 03/08. Glioblastoma. Hypertension under control. Hyperlipidemia. GERD. Patient's confusion is less. . 02/24/17. Glioblastoma. Hypertension. Hyperlipidemia. GERD. Patient talked better today. Patient to take oral medications. . 02/25/17. Glioblastoma. Hypertension. Hyperlipidemia. GERD area Patient have modified barium swallow today. Patient to see a radiation oncologist at 1 p.m. today. Patient voices no complaints. . 02/26/17. Glioblastoma. Hypertension. Hyperlipidemia. GERD. Patient passed modified barium swallow study. Patient told me about seeing radiation oncology as yesterday. Patient to go to [facility] next Thu.. . 12 square-shaped clear 17. Glioblastoma. Hypertension. Hyperlipidemia. GERD. Patient positive. Patient has pain in left hip and knee. . 03/02/17. Glioblastoma. Hypertension. Hyperlipidemia. gERD. Patient speech is better. . 03/03/17. Glioblastoma. Hypertension. Hyperlipidemia. GERD. Patient walking better. Patient slept process and speech is improving but not completely Patient walking better with minimal assist Clinical Quality Measures DVT/VTE Risk/Contraindication: Risk Factor Score Per Nursin RFS Level Per Nursing on Admit: 4+=Very High GANESH HEADLEY DO Mar 03, 2017 07:52
--- NOTE | 2017-03-03 08:13 | Occupational Ther Daily Note ---
OT Current Status-Daily Note Subjective Pt alert, sitting up in bed and finished with breakfast. Pt agreed to therapy. No c/o pain at this time. Mental Status/Objective Patient Orientation: Person, Place, Time, Situation Functional Start Measure 0=Not Assessed/NA 4=Minimal Assistance 1=Total Assistance 5=Supervision or Setup 2=Maximal Assistance 6=Modified Start 3=Moderate Assistance 7=Complete Start Attachments: PEG Tube ADL-Treatment Pt declined shower today. Functional Start Measure 0=Not Assessed/NA 4=Minimal Assistance 1=Total Assistance 5=Supervision or Setup 2=Maximal Assistance 6=Modified Start 3=Moderate Assistance 7=Complete IndependenceIRFPAI Quality Coding Scale 6 Independent with activity with or without an assistive device 5 Patient requires set up or clean up by helper. Patient completes activity by themselves 4 Supervision or touching assist (CGA). [place] provide cues , steadying assist 3 The helper provides less than half the effort to complete the activity 2 The helper provides more than half the effort to complete the activity 1 Dependent. The helper does all the effort to complete an activity 7 Patient refused to complete or attempt activity 9 The patient did not perform the activity before the current illness or injury 88 Not attempted due to Medical conditions or safety concerns Grooming (FIM): 6 (Pt is able to maneuver w/c slowly to sink to complete grooming.) Oral Hygiene (QC): 6 Upper Body (FIM): 4 (After set up, pt is able to complete donning/doffing shirt. Pt requires assist to hook bra.) Upper Body Dressing (QC): 4 Lower Body Dressing (FIM): 3 (Pt states that she needs assistance to don pants over feet. BEAL attempted to get pt to sequence using a dressing stick to manipulate clothing over feet, did not attempt. During other sessions, pt has crossed leg over knee to don pants. Pt could not problem solve how to complete and just relied on assistance to complete. Pt was able to don/doff socks/shoes though is inconsistent on attempting to tie shoes by self. Pt is able to stand and with assistance for balance hikes pants down over hips then requires assist to hike up over hips.) Lower Body Dressing (QC): 3 On/Off Footwear (QC): 4 Toileting (FIM): 4 (Assist for balance while standing to pull pants down then assist to pull pants up. Pt able to cleanse self sitting on toilet.) Toileting Hygiene (QC): 4 Toilet/Commode Transfer (FIM): 4 (Verbal cues to keep hands on FWW instead of reaching for grabbar before turning and standing in front of the toilet. Min A for balance.) Toilet Transfer (QC): 3 Other Treatment Pt maneuvered w/c 60' to therapy gym. Pt had difficulty keeping w/c in straight line. Pt then completed arm bike for 10 min at 15 carlson resistance, 4 recovery breaks, to increase strength and activity tolerance for daily functional tasks. Pt the completed UE fine motor tasks to work on UE strength and in-hand manipulation for dressing, 3 recovery breaks. Pt then maneuvered w/ c back to room. Pt was able to ambulate a short distance from w/c to recliner using FWW with min A. After therapy, pt sitting in recliner with call light/ phone in reach. All needs met in room. OT Short Term Goals Short Term Goals Time Frame: Mar 04, 2017 Eating(FIM): 5 Grooming(FIM): 5 Bathing(FIM): 4 Upper Body Dressing(FIM): 5 Lower Body Dressing(FIM): 4 Toileting(FIM): 4 Transfers (B,C,W/C) (FIM): 4 Toilet/Commode Transfer(FIM): 4 Shower Transfer(FIM): 3 Additional Short Term Goals: 1-Demonstrate ADL Tasks, 2-Verbalize Understanding , 3-ImproveStrength/Alicia 1=Demonstrate adherence to instructed precautions during ADL tasks. 2=Patient will verbalize/demonstrate understanding of assistive devices/ modifications for ADL. 3=Patient will improve strength/tolerance for activity to enable patient to perform ADL's. OT Hog Driver Goals Hog Driver Goals Time Frame: Mar 18, 2017 Eating (FIM): 6 Eating (QC): 6 Groomin Oral Hygiene (QC): 5 Bathing(FIM): 4 Shower/Bathe Self (QC): 4 Upper Body Dressing(FIM): 5 Upper Body Dressing (QC): 5 Lower Body Dressing(FIM): 5 Lower Body Dressing (QC): 5 On/Off Footwear (QC): 5 Toileting(FIM): 5 Toileting Hygiene (QC): 5 Transfers (B,C,W/C) (FIM): 5 Toilet/Commode Transfer(FIM): 5 Toilet/Commode Transfer (QC): 5 Shower Transfer(FIM): 4 Additional Goals: 1-Demonstrate ADL Tasks, 2-Verbalize Understanding, 3- ImproveStrength/Alicia 1=Demonstrate adherence to instructed precautions during ADL tasks. 2=Patient will verbalize/demonstrate understanding of assistive devices/ modifications for ADL. 3=Patient will improve strength/tolerance for activity to enable patient to perform ADL's. OT Education/Plan Discharge Recommendations Plan/Recommendations: Continue POC Treatment Plan/Plan of Care Patient would benefit from OT for education, treatment and training to promote independence in ADL's, mobility, safety and/or upper extremity function for ADL' s. Plan of Care: ADL Retraining, Caregiver Training, Cognitive Retraining, Functional Mobility, Group Exercise/Act as Ind, UE Funct Exercise/Act Treatment Duration: Mar 18, 2017 Frequency: At least 5 of 7 days/Wk (IRF) Estimated Hrs Per Day: 1.5 hours per day Agreement: Yes Rehab Potential: Guarded Time/GCodes Start Time: 06:50 Stop Time: 08:15 Total Time Billed (hr/min): 85 Billed Treatment Time 1 visit-FA 3 (50 min) EX 2 (35 min) JUANI LOTT Mar 03, 2017 08:13
[2017-03-03] MEDS: amLODIPine 2.5MG (NORVASC) TAB PO SCH (08:33)
[2017-03-03] MEDS: DEXAMETHASONE 4 MG TAB (DECADRON) PEG SCH ×2 (08:34→20:49)
[2017-03-03] MEDS: FAMOTIDINE 20 MG (PEPCID) TABLET PEG SCH (08:34)
[2017-03-03] MEDS: ATENOLOL 50 MG (TENORMIN) TAB PEG SCH (08:34)
[2017-03-03] MEDS: LEVETIRACETAM 1,000 MG (KEPPRA) TABLET PO SCH ×2 (08:34→20:48)
[2017-03-03] MEDS: DOCUSATE SODIUM 100 MG (COLACE) CAP PO SCH ×2 (08:35→20:48)
[2017-03-03] MEDS: ENOXAPARIN 40 MG/0.4 ML (LOVENOX) SYR SC SCH (08:35)
--- NOTE | 2017-03-03 09:36 | Physical Therapy Daily Note ---
PT Daily Note-Current Subjective Patient is very agreeable to participate with PT. Patient reports she is going to tomorrow for an appointment. Pain Numeric Pain Scale: 5-Moderate Pain Location: Medial Location Body Site: Abdomen Pain Description: Ache, Pressure Mental Status Patient Orientation: Person, Time, Situation Transfers Functional [place] Measure 0=Not Assessed/NA 4=Minimal Assistance 1=Total Assistance 5=Supervision or Setup 2=Maximal Assistance 6=Modified [place] 3=Moderate Assistance 7=Complete IndependenceIRFPAI Quality Coding Scale 6 Independent with activity with or without an assistive device 5 Patient requires set up or clean up by helper. Patient completes activity by themselves 4 Supervision or touching assist (CGA). [place] provide cues , steadying assist 3 The helper provides less than half the effort to complete the activity 2 The helper provides more than half the effort to complete the activity 1 Dependent. The helper does all the effort to complete an activity 7 Patient refused to complete or attempt activity 9 The patient did not perform the activity before the current illness or injury 88 Not attempted due to Medical conditions or safety concerns Transfers (B, C, W/C) (FIM): 4 Scootin Rollin Roll Left to Right (QC): 4 Supine to/from Sit: 4 Sit to/from Stand: 4 Sit to Lying (QC): 4 Sit to Stand (QC): 4 Chair/Sns-rd-Lzing Xfer(QC): 4 Bed to/from Chair: 4 Car Transfer (QC): 5 Weight Bearing Right Lower Extremity: Right Weight Bearing/Tolerated Left Lower Extremity: Left Weight Bearing/Tolerated Gait Training Does the Patient Walk?: Yes Gait (FIM): 1 Distance (FIM): 1=up to 49 ft Distance: 20' x 4 Walk 10 feet (QC): 4 Gait Level of Assist: 4 Gait Persons Needed: 1 Gait Assistive Device: FWW decrease in left knee hyperextension by eliminating Trendelenburg gait Exercises Supine Ex: Ankle pumps, Quad Set, Heel Slides, Hip abd/add Supine Reps: 10 (to increase functional strength to improve mobility) Seated Therapy Exercises: Ankle pumps, Long arc quads Seated Reps: 10 (to increase functional strength to improve functional mobility ) NuStep Minutes: 15 NuStep Workload: 3 (to improve functional strength) Assessment Patient progressing slowly with treatment plan. Patient limits self due to anxiety and abdominal pain. PT Short Term Goals Short Term Goals Time Frame: Feb 25, 2017 Transfers (B,C,W/C) (FIM): 4 Gait (FIM): 1 Gait Distance Comment: 10' Gait Level of Assist: 3 Gait Assistive Device: Parallel Bars Wheelchair (FIM): 2 Wheelchair Distance: 100' Wheelchair Level of Assist: 4 PT Rn Mental Health Goals Skilled Nursing Goals PT Rn Mental Health Goals Time Frame: Mar 11, 2017 Transfers (B,C,W/C) (FIM): 4 Sit to Lying (QC): 4 Lying-Sitting on Side/Bed(QC): 4 Sit to Stand (QC): 3 Rollin Roll Left to Right (QC): 4 Chair/Zoq-xc-Rqvgs Xfer(QC): 3 Car Transfer (QC): 3 Does the Patient Walk: No and Walking Goal IS indicated Gait (FIM): 1 Distance: 20' Walk 10 feet (QC): 3 Gait Level of Assist: 4 Gait Assistive Device: FWW Does the Pt use WC or Scooter?: Yes Wheelchair (FIM): 4 Distance: 150' Wheelchair Level of Assist: 4 Wheel 50 feet with 2 turns (QC: 3 Stairs (FIM): 1 # of Steps: 1 1 Step (curb) (QC): 3 4 Steps (QC): 88 12 Steps (QC): 88 Stairs Level Of Assist: 4 Picking up an Object (QC): 88 PT Plan Treatment/Plan Treatment Plan: Continue Plan of Care Treatment Plan: Bed Mobility, Concurrent Therapy, Education, Functional Activity Alicia, Functional Strength, Group Therapy, Gait, Safety, Therapeutic Exercise, Transfers Treatment Duration: Mar 11, 2017 Frequency: At least 5 of 7 days/Wk (IRF) Estimated Hrs Per Day: 1.5 hours per day Patient and/or Family Agrees t: Yes Time/GCodes Time In: 845 Time Out: 930 Total Billed Treatment Time: 45 Total Billed Treatment 1 visit EX x 2 25 min GT 20 min PENNY LARA PT Mar 03, 2017 09:36
--- NOTE | 2017-03-03 11:12 | Physical Therapy Daily Note ---
PT Daily Note-Current Subjective Patient agrees to PT. No c/o at this time. Pain Numeric Pain Scale: 0-No Pain Location: No Pain Reported Mental Status Patient Orientation: Person, Time, Situation Transfers Functional [place] Measure 0=Not Assessed/NA 4=Minimal Assistance 1=Total Assistance 5=Supervision or Setup 2=Maximal Assistance 6=Modified [place] 3=Moderate Assistance 7=Complete IndependenceIRFPAI Quality Coding Scale 6 Independent with activity with or without an assistive device 5 Patient requires set up or clean up by helper. Patient completes activity by themselves 4 Supervision or touching assist (CGA). [place] provide cues , steadying assist 3 The helper provides less than half the effort to complete the activity 2 The helper provides more than half the effort to complete the activity 1 Dependent. The helper does all the effort to complete an activity 7 Patient refused to complete or attempt activity 9 The patient did not perform the activity before the current illness or injury 88 Not attempted due to Medical conditions or safety concerns Transfers (B, C, W/C) (FIM): 4 Scootin Rollin Roll Left to Right (QC): 5 Supine to/from Sit: 5 Sit to/from Stand: 4 Sit to Lying (QC): 5 Sit to Stand (QC): 4 Chair/Jxd-qi-Lnsxd Xfer(QC): 4 Bed to/from Chair: 4 Car Transfer (QC): 5 Weight Bearing Right Lower Extremity: Right Weight Bearing/Tolerated Left Lower Extremity: Left Weight Bearing/Tolerated Gait Training Does the Patient Walk?: Yes Gait (FIM): 1 Distance (FIM): 1=up to 49 ft Distance: 40' x 2 Walk 10 feet (QC): 4 Gait Level of Assist: 4 Gait Persons Needed: 1 Gait Assistive Device: Cane Large Base Quad minimal assist for safety/Trendelenburg gait Wheelchair Training Does the Pt Use a Wheelchair?: Yes Wheelchair (FIM): 2 Wheelchair Distance: 6=420-80 ft Distance: 50' x 2 Wheelchair Level of Assist: 4 Type of Wheelchair: Manual Exercises Seated Therapy Exercises: Ankle pumps, Long arc quads, Hip flexion Seated Reps: 10 (3 sets to improve functional strength) NuStep Minutes: 20 NuStep Workload: 3 (to improve strength and functional mobility) Assessment Patient continues to progress slowly with treatment plan. She fatigues with activity and self limits. Staff is aware. PT Short Term Goals Short Term Goals Time Frame: Feb 25, 2017 Transfers (B,C,W/C) (FIM): 4 Gait (FIM): 1 Gait Distance Comment: 10' Gait Level of Assist: 3 Gait Assistive Device: Parallel Bars Wheelchair (FIM): 2 Wheelchair Distance: 100' Wheelchair Level of Assist: 4 PT Nursing Home Goals [employer] Laborer Goals PT Nursing Home Goals Time Frame: Mar 11, 2017 Transfers (B,C,W/C) (FIM): 4 Sit to Lying (QC): 4 Lying-Sitting on Side/Bed(QC): 4 Sit to Stand (QC): 3 Rollin Roll Left to Right (QC): 4 Chair/Ztk-yw-Uklcp Xfer(QC): 3 Car Transfer (QC): 3 Does the Patient Walk: No and Walking Goal IS indicated Gait (FIM): 1 Distance: 20' Walk 10 feet (QC): 3 Gait Level of Assist: 4 Gait Assistive Device: FWW Does the Pt use WC or Scooter?: Yes Wheelchair (FIM): 4 Distance: 150' Wheelchair Level of Assist: 4 Wheel 50 feet with 2 turns (QC: 3 Stairs (FIM): 1 # of Steps: 1 1 Step (curb) (QC): 3 4 Steps (QC): 88 12 Steps (QC): 88 Stairs Level Of Assist: 4 Picking up an Object (QC): 88 PT Plan Treatment/Plan Treatment Plan: Continue Plan of Care Treatment Plan: Bed Mobility, Concurrent Therapy, Education, Functional Activity Alicia, Functional Strength, Group Therapy, Gait, Safety, Therapeutic Exercise, Transfers Treatment Duration: Mar 11, 2017 Frequency: At least 5 of 7 days/Wk (IRF) Estimated Hrs Per Day: 1.5 hours per day Patient and/or Family Agrees t: Yes Time/GCodes Time In: 1015 Time Out: 1100 Total Billed Treatment Time: 45 Total Billed Treatment 1 visit EX x 2 31 min GT 14 min PENNY LARA PT Mar 03, 2017 11:12
--- NOTE | 2017-03-03 12:11 | Physical Therapy Progress Note ---
Therapy Progress Note Pt traveling to [facility] tomorrow for medical followup. Offered to patient and spouse training on car transfer into their car, they both declined, noting they felt confident in completing the transfer. Car transfer training has taken place in the therapy gym, but not into their car specifically. JUANI MARIN PT Mar 03, 2017 12:11
--- NOTE | 2017-03-03 12:50 | Speech Therapy Daily Note ---
Speech Daily Progress Note Subjective Date Seen by Provider: Mar 03, 2017 Time Seen by Provider: 09:30 The patient was seated upright in recliner upon entrance. The patient greeted the clinician appropriately and was agreeable to participation in the dysphagia evaluation. The patient is eager for her appointment at in the morning, however, seems somewhat anxious regarding the timeline. The patient is preparing to wake at 4: 00am to prepare for departure at 5am (appointment is at 8:45). The patient stated she will return fatigued, therefore, refuses therapy on 03/04/17. Per patient, "We will just see about and Thursday, I don't know that I'll be up to it." Objective Dysphagia Exercises: The patient continued based of tongue, pharyngeal contraction, and laryngeal elevation exercises with fair accuracy and mild to moderate clinician verbal cueing and direct modeling. Rationale for each exercise was discussed on this date and the patient verbalized comprehension of the material. Assessment Assessment Current Status: Fair Progress Treatment Plan Continue Plan of Care Communication Comprehension: 4 Expression: 4 Social Cognition Social Interaction: 4 Problem Solvin Memory: 3 Speech Short Term Goals Short Term Goals Short Term Goals 1. The patient will demonstrate oropharyngeal swallowing exercises with 80% accuracy, independently. 2. The patient will recall and demonstrate three functional memory strategies for use at home with mild clinician verbal cueing. Time Frame-STG: Two Weeks Speech Shelter Goals Shelter Goals 1. The patient will demonstrate the least restrictive diet without signs/ symptoms of aspiration or laryngeal penetration. 2. The patient will demonstrate improved functional memory and use of memory strategies for increased function and safety at home. Time Frame: Three Weeks Speech-Plan Treatment Plan Speech Therapy Treatment Plan: Continue Plan of Care Continue skilled speech pathology to target swallowing safety and swallowing strategies. Treatment Duration: Mar 12, 2017 Frequency: Modified Program (IRF) (Four to Five Times per Week) Estimated Hrs Per Day: .5 hour per day Rehab Potential: Guarded Safety Risks/Education Teaching Recipient: Patient Teaching Methods: Discussion Response to Teaching: Verbalize Understanding Education Topics Provided: Swallowing Strategies Time Speech Therapy Time In: 09:30 Speech Therapy Time Out: 10:00 Total Billed Time: 30 Billed Treatment Time ELEAZAR Keller ELIZABETH Mar 03, 2017 12:50
--- NOTE | 2017-03-03 17:15 | PM & R (SOAP) Progress Note ---
Subjective Time Seen by Provider: 17:10 Subjective/Events-last exam Patient was seen in her room this afternoon Discussed case with RN Patient to have f/u with one of her Physicians at [facility] tomorrow. Patient declined car transfers training with her car today but did practice in simulated situation in Gym with therapy staff,Patients spuse to transport.Patient min assist for transfers..Crani incision site left has healed well Objective Exam Last Set of Vital Signs Vital Signs Date Time Temp Pulse Resp B/P (MAP) Pulse Ox O2 Delivery O2 Flow Rate FiO2 03/03/17 08:23 Room Air 03/03/17 06:12 97.3 68 20 118/76 (90) 97 Capillary Refill : I&O Intake and Output 03/03/17 00:00 Intake Total 2265 ml Balance 2265 ml Intake Oral 2265 ml # Voids 10 General: Alert, Oriented X3, Cooperative, No Acute Distress HEENT: PERRLA, EOMI, Mucous Memb Moist/[place], Other (crani site with sutures inplace healing well) Neck: Supple, No JVD Lungs: Clear to Auscultation Heart: Regular Rate Abdomen: Normal Bowel Sounds, Soft, No Tenderness, Other (Peg in place) Extremities: No Edema Neuro: Other (weakness left > rt) Assessment/Plan Assessment 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
[2017-03-03 17:38] VITALS: BP 111/68
[2017-03-03] MEDS: ATORVASTATIN 80 MG (LIPITOR) TABLET PEG SCH (20:48)
[2017-03-04] MEDS: ATENOLOL 50 MG (TENORMIN) TAB PEG SCH (05:05)
[2017-03-04] MEDS: amLODIPine 2.5MG (NORVASC) TAB PO SCH (05:05)
[2017-03-04] MEDS: CYANOCOBALAMIN 500 MCG TAB (VITAMIN B-12) PEG SCH (05:06)
[2017-03-04] MEDS: FAMOTIDINE 20 MG (PEPCID) TABLET PEG SCH (05:06)
[2017-03-04] MEDS: LEVETIRACETAM 1,000 MG (KEPPRA) TABLET PO SCH ×2 (05:06→21:22)
[2017-03-04] MEDS: DEXAMETHASONE 4 MG TAB (DECADRON) PEG SCH (05:06)
[2017-03-04] MEDS: PANTOPRAZOLE 20 MG TABLET (PROTONIX) PO SCH (05:06)
[2017-03-04] MEDS: ENOXAPARIN 40 MG/0.4 ML (LOVENOX) SYR SC SCH (05:06)
[2017-03-04] MEDS: DOCUSATE SODIUM 100 MG (COLACE) CAP PO SCH ×2 (05:07→21:22)
[2017-03-04 05:26] VITALS: BP 121/83
--- NOTE | 2017-03-04 08:40 | Physical Therapy Progress Note ---
Therapy Progress Note Pt out of facility this am due to doctor appt at [facility]. No treatment rendered. JUANI MARIN PT Mar 04, 2017 08:40
--- NOTE | 2017-03-04 08:44 | Speech Therapy Progress Note ---
Therapy Progress Note Pt out of facility this am due to doctor appt at [facility]. No treatment rendered. ALTAF AGUILA Mar 04, 2017 08:44
--- NOTE | 2017-03-04 09:09 | Physical Therapy Progress Note ---
Therapy Progress Note Patient is currently at , she will not be seen for PT this morning. NGUYEN HUITRON PT Mar 04, 2017 09:09
--- NOTE | 2017-03-04 12:57 | Occ Therapy Progress Note ---
Therapy Progress Note Pt is off unit for doctor's appt in [place]. No OT today. ALEXYS BYRNE OT Mar 04, 2017 12:57
--- NOTE | 2017-03-04 15:55 | PM & R (SOAP) Progress Note ---
Subjective Time Seen by Provider: 15:40 Subjective/Events-last exam Patient was seen in her room this afternoon.Patient just back from [facility] after seeing oncologist who will follow up with DR Cantu here radiation oncologist.Patient is min assist for transfers Discussed case with RN Decadron taper continues Sss orders. Review of Systems Neurological: Weakness Objective Exam Last Set of Vital Signs Vital Signs Date Time Temp Pulse Resp B/P (MAP) Pulse Ox O2 Delivery O2 Flow Rate FiO2 03/04/17 05:26 97.8 69 20 121/83 (96) 97 Room Air Capillary Refill : I&O Intake and Output 03/04/17 00:00 Intake Total 1330 ml Balance 1330 ml Intake Oral 1330 ml # Voids 7 # Bowel Movements 1 General: Alert, Oriented X3, Cooperative, No Acute Distress HEENT: PERRLA, EOMI, Mucous Memb Moist/[place], Other (crani site with sutures inplace healing well) Neck: Supple, No JVD Lungs: Clear to Auscultation Heart: Regular Rate Abdomen: Normal Bowel Sounds, Soft, No Tenderness, Other (Peg in place) Extremities: No Edema Neuro: Other (weakness left > rt) Assessment/Plan Assessment 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
[2017-03-04 17:15] VITALS: BP 113/69
[2017-03-04] MEDS: ATORVASTATIN 80 MG (LIPITOR) TABLET PEG SCH (21:22)
[2017-03-05 05:33] VITALS: BP 128/79
[2017-03-05] MEDS: CYANOCOBALAMIN 500 MCG TAB (VITAMIN B-12) PEG SCH (06:05)
[2017-03-05] MEDS: PANTOPRAZOLE 20 MG TABLET (PROTONIX) PO SCH (06:05)
--- NOTE | 2017-03-05 08:30 | Progress Note (SOAP) ---
Subjective Time Seen by Provider: 08:28 Subjective/Events-last exam patient to start radiation treatments. Patient doing better. Patient went to [facility] yesterday. Glioblastoma Objective Exam Vital Signs Date Time Temp Pulse Resp B/P (MAP) Pulse Ox O2 Delivery O2 Flow Rate FiO2 03/05/17 05:33 98.7 68 18 128/79 (95) 98 Room Air 03/04/17 20:07 Room Air 03/04/17 17:15 98.6 72 18 113/69 (84) 98 Room Air 03/04/17 15:30 Room Air I & O 03/05/17 07:00 Intake Total 850 ml Balance 850 ml Capillary Refill : General Appearance: No Apparent Distress, WD/WN Assessment/Plan Assessment/Plan Assess & Plan/Chief Complaint glioblastoma. Hypertension. Hyperlipidemia. GERD. Viral encephalitis. Chronic constipation. Vitamin B12 deficiency. Vitamin D deficiency. . 02/19/17. Glioblastoma. Hypertension. Hyperlipidemia. GERD Vitamin B12 deficiency. Vitamin D deficiency. Patient feeling better this morning. . Glioblastoma. Hypertension. Hyperlipidemia. GERD. Patient has trouble with thought process.. . 03/08. Glioblastoma. Hypertension under control. Hyperlipidemia. GERD. Patient's confusion is less. . 02/24/17. Glioblastoma. Hypertension. Hyperlipidemia. GERD. Patient talked better today. Patient to take oral medications. . 02/25/17. Glioblastoma. Hypertension. Hyperlipidemia. GERD area Patient have modified barium swallow today. Patient to see a radiation oncologist at 1 p.m. today. Patient voices no complaints. . 02/26/17. Glioblastoma. Hypertension. Hyperlipidemia. GERD. Patient passed modified barium swallow study. Patient told me about seeing radiation oncology as yesterday. Patient to go to [facility] next Thu.. . 12 square-shaped clear 17. Glioblastoma. Hypertension. Hyperlipidemia. GERD. Patient positive. Patient has pain in left hip and knee. . 03/02/17. Glioblastoma. Hypertension. Hyperlipidemia. gERD. Patient speech is better. . 03/03/17. Glioblastoma. Hypertension. Hyperlipidemia. GERD. Patient walking better. Patient slept process and speech is improving but not completely Patient walking better with minimal assist. . 03/05/17. Glioblastoma. Hypertension. Hyperlipidemia. GERD. Patient speaking better. Patient went to [facility] yesterday. Patient to startradiation treatments. Clinical Quality Measures DVT/VTE Risk/Contraindication: Risk Factor Score Per Nursin RFS Level Per Nursing on Admit: 4+=Very High GANESH HEADLEY DO Mar 05, 2017 08:30
[2017-03-05] MEDS: LEVETIRACETAM 1,000 MG (KEPPRA) TABLET PO SCH ×2 (08:44→20:44)
[2017-03-05] MEDS: DEXAMETHASONE 4 MG TAB (DECADRON) PO SCH (08:44)
[2017-03-05] MEDS: FAMOTIDINE 20 MG (PEPCID) TABLET PEG SCH (08:45)
[2017-03-05] MEDS: ATENOLOL 50 MG (TENORMIN) TAB PEG SCH (08:45)
[2017-03-05] MEDS: amLODIPine 2.5MG (NORVASC) TAB PO SCH (08:46)
[2017-03-05] MEDS: DOCUSATE SODIUM 100 MG (COLACE) CAP PO SCH ×2 (08:48→19:30)
[2017-03-05] MEDS: ENOXAPARIN 40 MG/0.4 ML (LOVENOX) SYR SC SCH (08:48)
--- NOTE | 2017-03-05 09:35 | Speech Therapy Daily Note ---
Speech Daily Progress Note Subjective Date Seen by Provider: Mar 05, 2017 Time Seen by Provider: 08:50 The patient was seated upright in wheelchair upon entrance. The patient greeted the clinician appropriately and was agreeable to participation in the dysphagia evaluation. Objective Dysphagia Exercises: The patient continued based of tongue, pharyngeal contraction, and laryngeal elevation exercises with fair accuracy and mild to moderate clinician verbal cueing and direct modeling. Rationale for each exercise was discussed on this date and the patient verbalized comprehension of the material. Assessment Assessment Current Status: Good Progress Treatment Plan Continue Plan of Care Communication Comprehension: 4 Expression: 4 Social Cognition Social Interaction: 4 Problem Solvin Memory: 3 Speech Short Term Goals Short Term Goals Short Term Goals 1. The patient will demonstrate oropharyngeal swallowing exercises with 80% accuracy, independently. 2. The patient will recall and demonstrate three functional memory strategies for use at home with mild clinician verbal cueing. Time Frame-STG: Two Weeks Speech Cctv Technician Goals Cctv Technician Goals 1. The patient will demonstrate the least restrictive diet without signs/ symptoms of aspiration or laryngeal penetration. 2. The patient will demonstrate improved functional memory and use of memory strategies for increased function and safety at home. Time Frame: Three Weeks Speech-Plan Treatment Plan Speech Therapy Treatment Plan: Continue Plan of Care Continue skilled speech pathology to target functional communication and dysphagia strengthening exercises. Treatment Duration: Mar 12, 2017 Frequency: Modified Program (IRF) (Four to Five Times per Week) Estimated Hrs Per Day: .5 hour per day Rehab Potential: Guarded Safety Risks/Education Teaching Recipient: Patient Teaching Methods: Demonstration, Handout, Discussion Response to Teaching: Return Demonstration, Reinforcement Needed Education Topics Provided: Dysphagia Exercises Time Speech Therapy Time In: 08:50 Speech Therapy Time Out: 09:20 Total Billed Time: 30 Billed Treatment Time ELEAZAR Keller ALTAF AGUILA Mar 05, 2017 09:35
--- NOTE | 2017-03-05 10:33 | Physical Therapy Daily Note ---
PT Daily Note-Current Subjective Patient in wheelchair pre tx, agrees to PT, has no complaints of pain. Appearance Patient in wheelchair at bedside post tx with nurse call, phone, tray, all needs met. Mental Status Patient Orientation: Person, Place, Situation Transfers Functional Reader Measure 0=Not Assessed/NA 4=Minimal Assistance 1=Total Assistance 5=Supervision or Setup 2=Maximal Assistance 6=Modified Reader 3=Moderate Assistance 7=Complete IndependenceIRFPAI Quality Coding Scale 6 Independent with activity with or without an assistive device 5 Patient requires set up or clean up by helper. Patient completes activity by themselves 4 Supervision or touching assist (CGA). Mobile provide cues , steadying assist 3 The helper provides less than half the effort to complete the activity 2 The helper provides more than half the effort to complete the activity 1 Dependent. The helper does all the effort to complete an activity 7 Patient refused to complete or attempt activity 9 The patient did not perform the activity before the current illness or injury 88 Not attempted due to Medical conditions or safety concerns Transfers (B, C, W/C) (FIM): 4 Scootin Rollin Supine to/from Sit: 4 Sit to/from Stand: 4 Bed to/from Chair: 4 Patient needs min assist for supine to sit and sit to stand and stand pivot transfer. Patient was able to lay down and roll on her side and kick her legs off the side of the bed but was unable to push her body up to a sitting position with her arms. Suspect patient was not participating with full effort. Weight Bearing Right Lower Extremity: Right Weight Bearing/Tolerated Left Lower Extremity: Left Weight Bearing/Tolerated Gait Training Gait (FIM): 1 Distance: 20' Gait Level of Assist: 4 Gait Persons Needed: 1 Gait Assistive Device: FWW Patient was having a lot of difficulty with balance and kept pushing her walker out too far in front of her. She says she was dizzy and she had BP of 102/78. Exercises Supine Ex: Bridging, Straight leg raise Supine Reps: 15 SAQ alternating for 5 min NuStep Minutes: 15 NuStep Workload: 5 Treatments bed mobility, transfers, ambulation, functional strengthening Assessment Current Status: Poor Progress Patient states she is dizzy, and she has slightly low blood pressure. Patient appears to be poorly motivated and does not seem to participate with full effort. PT Short Term Goals Short Term Goals Time Frame: Feb 25, 2017 Transfers (B,C,W/C) (FIM): 4 Gait (FIM): 1 Gait Distance Comment: 10' Gait Level of Assist: 3 Gait Assistive Device: Parallel Bars Wheelchair (FIM): 2 Wheelchair Distance: 50' x 2 Wheelchair Level of Assist: 4 PT Surtass Analyst Goals Surtass Analyst Goals PT Long-Term Goals Time Frame: Mar 11, 2017 Transfers (B,C,W/C) (FIM): 4 Sit to Lying (QC): 4 Lying-Sitting on Side/Bed(QC): 4 Sit to Stand (QC): 3 Rollin Roll Left to Right (QC): 4 Chair/Zet-wg-Yfdpt Xfer(QC): 3 Car Transfer (QC): 3 Does the Patient Walk: No and Walking Goal IS indicated Gait (FIM): 1 Distance: 20' Walk 10 feet (QC): 3 Gait Level of Assist: 4 Gait Assistive Device: FWW Does the Pt use WC or Scooter?: Yes Wheelchair (FIM): 4 Distance: 150' Wheelchair Level of Assist: 4 Wheel 50 feet with 2 turns (QC: 3 Stairs (FIM): 1 # of Steps: 1 1 Step (curb) (QC): 3 4 Steps (QC): 88 12 Steps (QC): 88 Stairs Level Of Assist: 4 Picking up an Object (QC): 88 PT Plan Problem List Problem List: Activity Tolerance, Functional Strength, Safety, Balance, Gait, Transfer, Bed Mobility Treatment/Plan Treatment Plan: Continue Plan of Care Treatment Plan: Bed Mobility, Concurrent Therapy, Education, Functional Activity Alicia, Functional Strength, Group Therapy, Gait, Safety, Therapeutic Exercise, Transfers Treatment Duration: Mar 11, 2017 Frequency: At least 5 of 7 days/Wk (IRF) Estimated Hrs Per Day: 1.5 hours per day Patient and/or Family Agrees t: Yes Safety Risks/Education Patient Education: Gait Training, Transfer Techniques, Correct Positioning, Disease Process, Safety Issues Teaching Recipient: Patient Teaching Methods: Demonstration, Discussion Response to Teaching: Reinforcement Needed Time/GCodes Time In: 930 Time Out: 1030 Total Billed Treatment Time: 60 Total Billed Treatment 1 visit EX 25' FA20' GT 15' NGUYEN HUITRON PT Mar 05, 2017 10:33
--- NOTE | 2017-03-05 10:46 | PM & R (SOAP) Progress Note ---
Subjective Time Seen by Provider: 09:50 Subjective/Events-last exam Patient was seen in her room this AM Discharge set for next week with f/u [facility] with [facility] Patient min assist for transfers Decadron decreased to 2 mg po Q day. Objective Exam Last Set of Vital Signs Vital Signs Date Time Temp Pulse Resp B/P (MAP) Pulse Ox O2 Delivery O2 Flow Rate FiO2 03/05/17 09:00 Room Air 03/05/17 05:33 98.7 68 18 128/79 (95) 98 Capillary Refill : I&O Intake and Output 03/05/17 00:00 Intake Total 600 ml Balance 600 ml Intake Oral 600 ml # Voids 7 # Bowel Movements 1 General: Alert, Oriented X3, Cooperative, No Acute Distress HEENT: PERRLA, EOMI, Mucous Memb Moist/Onton, Other (crani site with sutures inplace healing well) Neck: Supple, No JVD Lungs: Clear to Auscultation Heart: Regular Rate Abdomen: Normal Bowel Sounds, Soft, No Tenderness, Other (Peg in place) Extremities: No Edema Neuro: Other (weakness left > rt) Assessment/Plan Assessment 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
--- NOTE | 2017-03-05 14:26 | Physical Therapy Daily Note ---
PT Daily Note-Current Subjective Agrees to Rx. Spoke of what her Holiday traditions had been in the past Transfers Functional [place] Measure 0=Not Assessed/NA 4=Minimal Assistance 1=Total Assistance 5=Supervision or Setup 2=Maximal Assistance 6=Modified [place] 3=Moderate Assistance 7=Complete IndependenceIRFPAI Quality Coding Scale 6 Independent with activity with or without an assistive device 5 Patient requires set up or clean up by helper. Patient completes activity by themselves 4 Supervision or touching assist (CGA). Jasper provide cues , steadying assist 3 The helper provides less than half the effort to complete the activity 2 The helper provides more than half the effort to complete the activity 1 Dependent. The helper does all the effort to complete an activity 7 Patient refused to complete or attempt activity 9 The patient did not perform the activity before the current illness or injury 88 Not attempted due to Medical conditions or safety concerns SPTs w/c to Nustep and back min to mod assist Weight Bearing Right Lower Extremity: Right Weight Bearing/Tolerated Left Lower Extremity: Left Weight Bearing/Tolerated Stair Training 25 ft with some assist to brake an instruction for w/c manuever Exercises NuStep Minutes: 10 NuStep Workload: 3 Treatments leg presses on Nustep x15 Assessment Current Status: Good Progress PT Short Term Goals Short Term Goals Time Frame: Feb 25, 2017 Transfers (B,C,W/C) (FIM): 4 Gait (FIM): 1 Gait Distance Comment: 10' Gait Level of Assist: 3 Gait Assistive Device: Parallel Bars Wheelchair (FIM): 2 Wheelchair Distance: 50' x 2 Wheelchair Level of Assist: 4 PT Plastics Tooling Engineer Goals Residential Goals PT Residential Goals Time Frame: Mar 11, 2017 Transfers (B,C,W/C) (FIM): 4 Sit to Lying (QC): 4 Lying-Sitting on Side/Bed(QC): 4 Sit to Stand (QC): 3 Rollin Roll Left to Right (QC): 4 Chair/Kjv-xx-Iyres Xfer(QC): 3 Car Transfer (QC): 3 Does the Patient Walk: No and Walking Goal IS indicated Gait (FIM): 1 Distance: 20' Walk 10 feet (QC): 3 Gait Level of Assist: 4 Gait Assistive Device: FWW Does the Pt use WC or Scooter?: Yes Wheelchair (FIM): 4 Distance: 150' Wheelchair Level of Assist: 4 Wheel 50 feet with 2 turns (QC: 3 Stairs (FIM): 1 # of Steps: 1 1 Step (curb) (QC): 3 4 Steps (QC): 88 12 Steps (QC): 88 Stairs Level Of Assist: 4 Picking up an Object (QC): 88 PT Plan Treatment/Plan Treatment Plan: Continue Plan of Care Treatment Plan: Bed Mobility, Concurrent Therapy, Education, Functional Activity Alicia, Functional Strength, Group Therapy, Gait, Safety, Therapeutic Exercise, Transfers Treatment Duration: Mar 11, 2017 Frequency: At least 5 of 7 days/Wk (IRF) Estimated Hrs Per Day: 1.5 hours per day Patient and/or Family Agrees t: Yes Safety Risks/Education Patient Education: Transfer Techniques, W/C Management Teaching Recipient: Patient Teaching Methods: Demonstration, Discussion Response to Teaching: Verbalize Understanding, Return Demonstration, Reinforcement Needed Time/GCodes Time In: 1400 Time Out: 1420 Total Billed Treatment Time: 20 Total Billed Treatment 1,EX20m G Codes Necessary: JOCELYNE Bernal STORE WORKER Mar 05, 2017 14:26
--- NOTE | 2017-03-05 15:17 | Occupational Ther Daily Note ---
OT Current Status-Daily Note Subjective Pt. does not report pain. Appearance Pt. is up in chair. Agrees to work with OT. Mental Status/Objective Patient Orientation: Person Functional [place] Measure 0=Not Assessed/NA 4=Minimal Assistance 1=Total Assistance 5=Supervision or Setup 2=Maximal Assistance 6=Modified [place] 3=Moderate Assistance 7=Complete [place] ADL-Treatment Functional [place] Measure 0=Not Assessed/NA 4=Minimal Assistance 1=Total Assistance 5=Supervision or Setup 2=Maximal Assistance 6=Modified [place] 3=Moderate Assistance 7=Complete IndependenceIRFPAI Quality Coding Scale 6 Independent with activity with or without an assistive device 5 Patient requires set up or clean up by helper. Patient completes activity by themselves 4 Supervision or touching assist (CGA). Glidden provide cues , steadying assist 3 The helper provides less than half the effort to complete the activity 2 The helper provides more than half the effort to complete the activity 1 Dependent. The helper does all the effort to complete an activity 7 Patient refused to complete or attempt activity 9 The patient did not perform the activity before the current illness or injury 88 Not attempted due to Medical conditions or safety concerns Grooming (FIM): 3 (Pt. is able to brush her teeth with SBA, but requires max assist to brush her hair.) Oral Hygiene (QC): 4 Bathing (FIM): 3 (Pt. declines showering but agrees to spongebathe at sink. Pt. is able to wash upper body and stand with mod assist to wash LE. Requires assist to wash rear sanjuana area.) Shower/Bathe Self (QC): 2 Upper Body (FIM): 5 Upper Body Dressing (QC): 4 Lower Body Dressing (FIM): 2 (Pt. requires max assist to pull brief and pants back up.) Lower Body Dressing (QC): 2 Toileting (FIM): 3 (Pt. is able to cleanse self with CGA while sitting on toilet, but requires mod assist to pull brief and pants back up.) Toileting Hygiene (QC): 2 Transfers (B, C, W/C) (FIM): 3 Toilet/Commode Transfer (FIM): 3 Toilet Transfer (QC): 3 Other Treatment After ADLs, pt. agreed to self propel wheelchair to gym. Noted that pt. had significantly difficult time staying in straight line, and required cues to back up and out of the way of items. Pt. continually ran into items on both sides. OT pushed pt. in chair to gym. Pt. completed theraputty activity with retrieving beads for increased fine motor strength. Pt. tolerated this well. Went back to room and stayed up in chair to wait for lunch. Education OT Patient Education: Correct positioning, Exercise program, Modified ADL techniques, Progress toward Goal/Update tx plan, Purpose of tx/functional activities, Reviewed precautions, Rehab process, Transfer techniques, W/C management Teaching Recipient: Patient Teaching Methods: Demonstration, Discussion Response to Teaching: Verbalize Understanding, Return Demonstration OT Short Term Goals Short Term Goals Time Frame: Mar 04, 2017 Eating(FIM): 5 Grooming(FIM): 5 Bathing(FIM): 4 Upper Body Dressing(FIM): 5 Lower Body Dressing(FIM): 4 Toileting(FIM): 4 Transfers (B,C,W/C) (FIM): 4 Toilet/Commode Transfer(FIM): 4 Shower Transfer(FIM): 3 Additional Short Term Goals: 1-Demonstrate ADL Tasks, 2-Verbalize Understanding , 3-ImproveStrength/Alicia 1=Demonstrate adherence to instructed precautions during ADL tasks. 2=Patient will verbalize/demonstrate understanding of assistive devices/ modifications for ADL. 3=Patient will improve strength/tolerance for activity to enable patient to perform ADL's. OT Senior Living Goals Senior Living Goals Time Frame: Mar 18, 2017 Eating (FIM): 6 Eating (QC): 6 Groomin Oral Hygiene (QC): 5 Bathing(FIM): 4 Shower/Bathe Self (QC): 4 Upper Body Dressing(FIM): 5 Upper Body Dressing (QC): 5 Lower Body Dressing(FIM): 5 Lower Body Dressing (QC): 5 On/Off Footwear (QC): 5 Toileting(FIM): 5 Toileting Hygiene (QC): 5 Transfers (B,C,W/C) (FIM): 5 Toilet/Commode Transfer(FIM): 5 Toilet/Commode Transfer (QC): 5 Shower Transfer(FIM): 4 Additional Goals: 1-Demonstrate ADL Tasks, 2-Verbalize Understanding, 3- ImproveStrength/Alicia 1=Demonstrate adherence to instructed precautions during ADL tasks. 2=Patient will verbalize/demonstrate understanding of assistive devices/ modifications for ADL. 3=Patient will improve strength/tolerance for activity to enable patient to perform ADL's. OT Education/Plan Problem List/Assessment Assessment: Decreased Activ Tolerance, Decreased UE Strength, Dependent Transfers, Impaired Bed Mobility, Impaired Cognition, Impaired Coordination, Impaired Funct Balance, Impaired I ADL's, Impaired Self-Care Skills Discharge Recommendations Plan/Recommendations: Continue POC Therapy D/C Recommendations: 24 hr Supervision, Home w/ Family Support Treatment Plan/Plan of Care Treatment,Training & Education: Yes Patient would benefit from OT for education, treatment and training to promote independence in ADL's, mobility, safety and/or upper extremity function for ADL' s. Plan of Care: ADL Retraining, Caregiver Training, Cognitive Retraining, Functional Mobility, Group Exercise/Act as Ind, UE Funct Exercise/Act Treatment Duration: Mar 18, 2017 Frequency: At least 5 of 7 days/Wk (IRF) Estimated Hrs Per Day: 1.5 hours per day Agreement: Yes Rehab Potential: Guarded Time/GCodes Start Time: 11:15 Stop Time: 12:00 Total Time Billed (hr/min): 45 Billed Treatment Time 1, ADL x 30minutes, FA x 15minutes LIGIA CERRATO OT Mar 05, 2017 15:16
--- NOTE | 2017-03-05 15:20 | Occupational Ther Daily Note ---
OT Current Status-Daily Note Subjective Pt. states that she is tired. Appearance Pt. agrees to work with therapist. Mental Status/Objective Patient Orientation: Person Functional [place] Measure 0=Not Assessed/NA 4=Minimal Assistance 1=Total Assistance 5=Supervision or Setup 2=Maximal Assistance 6=Modified [place] 3=Moderate Assistance 7=Complete [place] ADL-Treatment Functional [place] Measure 0=Not Assessed/NA 4=Minimal Assistance 1=Total Assistance 5=Supervision or Setup 2=Maximal Assistance 6=Modified [place] 3=Moderate Assistance 7=Complete IndependenceIRFPAI Quality Coding Scale 6 Independent with activity with or without an assistive device 5 Patient requires set up or clean up by helper. Patient completes activity by themselves 4 Supervision or touching assist (CGA). Kersey provide cues , steadying assist 3 The helper provides less than half the effort to complete the activity 2 The helper provides more than half the effort to complete the activity 1 Dependent. The helper does all the effort to complete an activity 7 Patient refused to complete or attempt activity 9 The patient did not perform the activity before the current illness or injury 88 Not attempted due to Medical conditions or safety concerns Other Treatment Pt. is up in wheelchair. OT pushes pt. to therapy gym, as pt. is having difficulty keeping chair in straight line. Pt. completed armbike x 10 minutes for increased overall strengthening, and then worked on fine motor task with coloring. Pt. utilized right UE for this task, and was able to stay in the lines of the page. However, after coloring half the page, pt. states that she is very tired. Pt. is up in chair waiting for PT after treatment. Education OT Patient Education: Correct positioning, Exercise program, Modified ADL techniques, Progress toward Goal/Update tx plan, Purpose of tx/functional activities, Reviewed precautions, Rehab process, Transfer techniques Teaching Recipient: Patient Teaching Methods: Demonstration, Discussion Response to Teaching: Verbalize Understanding, Return Demonstration OT Short Term Goals Short Term Goals Time Frame: Mar 04, 2017 Eating(FIM): 5 Grooming(FIM): 5 Bathing(FIM): 4 Upper Body Dressing(FIM): 5 Lower Body Dressing(FIM): 4 Toileting(FIM): 4 Transfers (B,C,W/C) (FIM): 4 Toilet/Commode Transfer(FIM): 4 Shower Transfer(FIM): 3 Additional Short Term Goals: 1-Demonstrate ADL Tasks, 2-Verbalize Understanding , 3-ImproveStrength/Alicia 1=Demonstrate adherence to instructed precautions during ADL tasks. 2=Patient will verbalize/demonstrate understanding of assistive devices/ modifications for ADL. 3=Patient will improve strength/tolerance for activity to enable patient to perform ADL's. OT Double Spindle Shaper Operator Goals Care Home Goals Time Frame: Mar 18, 2017 Eating (FIM): 6 Eating (QC): 6 Groomin Oral Hygiene (QC): 5 Bathing(FIM): 4 Shower/Bathe Self (QC): 4 Upper Body Dressing(FIM): 5 Upper Body Dressing (QC): 5 Lower Body Dressing(FIM): 5 Lower Body Dressing (QC): 5 On/Off Footwear (QC): 5 Toileting(FIM): 5 Toileting Hygiene (QC): 5 Transfers (B,C,W/C) (FIM): 5 Toilet/Commode Transfer(FIM): 5 Toilet/Commode Transfer (QC): 5 Shower Transfer(FIM): 4 Additional Goals: 1-Demonstrate ADL Tasks, 2-Verbalize Understanding, 3- ImproveStrength/Alicia 1=Demonstrate adherence to instructed precautions during ADL tasks. 2=Patient will verbalize/demonstrate understanding of assistive devices/ modifications for ADL. 3=Patient will improve strength/tolerance for activity to enable patient to perform ADL's. OT Education/Plan Problem List/Assessment Assessment: Decreased Activ Tolerance, Dependent Transfers, Impaired Cognition , Impaired I ADL's, Impaired Self-Care Skills Discharge Recommendations Plan/Recommendations: Continue POC Therapy D/C Recommendations: 24 hr Supervision, Home w/ Family Support Treatment Plan/Plan of Care Treatment,Training & Education: Yes Patient would benefit from OT for education, treatment and training to promote independence in ADL's, mobility, safety and/or upper extremity function for ADL' s. Plan of Care: ADL Retraining, Caregiver Training, Cognitive Retraining, Functional Mobility, Group Exercise/Act as Ind, UE Funct Exercise/Act Treatment Duration: Mar 18, 2017 Frequency: At least 5 of 7 days/Wk (IRF) Estimated Hrs Per Day: 1.5 hours per day Agreement: Yes Rehab Potential: Guarded Time/GCodes Start Time: 13:30 Stop Time: 14:00 Total Time Billed (hr/min): 30 Billed Treatment Time 1, FA x 2 NACCARATO,LIGIA OT Mar 05, 2017 15:20
[2017-03-05 17:45] VITALS: BP 113/74
[2017-03-05] MEDS: ATORVASTATIN 80 MG (LIPITOR) TABLET PEG SCH (20:44)
[2017-03-06 05:40] VITALS: BP 128/82
[2017-03-06] MEDS: PANTOPRAZOLE 20 MG TABLET (PROTONIX) PO SCH (05:48)
[2017-03-06] MEDS: CYANOCOBALAMIN 500 MCG TAB (VITAMIN B-12) PEG SCH (05:48)
--- NOTE | 2017-03-06 08:04 | Progress Note (SOAP) ---
Subjective Time Seen by Provider: 08:02 Subjective/Events-last exam GLIOBLASTOMA. patient doing better. Patient improving. Patient had no complaints today Objective Exam Vital Signs Date Time Temp Pulse Resp B/P (MAP) Pulse Ox O2 Delivery O2 Flow Rate FiO2 03/06/17 05:40 98.9 71 18 128/82 (97) 98 Room Air 03/05/17 20:30 Room Air 03/05/17 17:45 97.6 78 18 113/74 (87) 99 Room Air 03/05/17 09:00 Room Air I & O 03/06/17 07:00 Intake Total 1620 ml Balance 1620 ml Capillary Refill : General Appearance: No Apparent Distress, WD/WN Assessment/Plan Assessment/Plan Assess & Plan/Chief Complaint glioblastoma. Hypertension. Hyperlipidemia. GERD. Viral encephalitis. Chronic constipation. Vitamin B12 deficiency. Vitamin D deficiency. . 02/19/17. Glioblastoma. Hypertension. Hyperlipidemia. GERD Vitamin B12 deficiency. Vitamin D deficiency. Patient feeling better this morning. . Glioblastoma. Hypertension. Hyperlipidemia. GERD. Patient has trouble with thought process.. . 03/08. Glioblastoma. Hypertension under control. Hyperlipidemia. GERD. Patient's confusion is less. . 02/24/17. Glioblastoma. Hypertension. Hyperlipidemia. GERD. Patient talked better today. Patient to take oral medications. . 02/25/17. Glioblastoma. Hypertension. Hyperlipidemia. GERD area Patient have modified barium swallow today. Patient to see a radiation oncologist at 1 p.m. today. Patient voices no complaints. . 02/26/17. Glioblastoma. Hypertension. Hyperlipidemia. GERD. Patient passed modified barium swallow study. Patient told me about seeing radiation oncology as yesterday. Patient to go to [facility] next Thu.. . 12 square-shaped clear 17. Glioblastoma. Hypertension. Hyperlipidemia. GERD. Patient positive. Patient has pain in left hip and knee. . 03/02/17. Glioblastoma. Hypertension. Hyperlipidemia. gERD. Patient speech is better. . 03/03/17. Glioblastoma. Hypertension. Hyperlipidemia. GERD. Patient walking better. Patient slept process and speech is improving but not completely Patient walking better with minimal assist. . 03/05/17. Glioblastoma. Hypertension. Hyperlipidemia. GERD. Patient speaking better. Patient went to [facility] yesterday. Patient to start radiation treatments. . 03/06/17. Glioblastoma. Hypertension. Hyperlipidemia. GERD. Patient doing better.. patient has no complaints today Clinical Quality Measures DVT/VTE Risk/Contraindication: Risk Factor Score Per Nursin RFS Level Per Nursing on Admit: 4+=Very High GANESH HEADLEY DO Mar 06, 2017 08:04
[2017-03-06] MEDS: DEXAMETHASONE 4 MG TAB (DECADRON) PO SCH (08:13)
[2017-03-06] MEDS: ENOXAPARIN 40 MG/0.4 ML (LOVENOX) SYR SC SCH (08:13)
[2017-03-06] MEDS: FAMOTIDINE 20 MG (PEPCID) TABLET PEG SCH (08:13)
[2017-03-06] MEDS: LEVETIRACETAM 1,000 MG (KEPPRA) TABLET PO SCH ×2 (08:13→20:35)
[2017-03-06] MEDS: amLODIPine 2.5MG (NORVASC) TAB PO SCH (08:13)
[2017-03-06] MEDS: ATENOLOL 50 MG (TENORMIN) TAB PEG SCH (08:13)
[2017-03-06] MEDS: DOCUSATE SODIUM 100 MG (COLACE) CAP PO SCH ×2 (08:13→20:36)
--- NOTE | 2017-03-06 08:25 | PM & R (SOAP) Progress Note ---
Subjective Time Seen by Provider: 08:00 Subjective/Events-last exam Patient was seen in her room this AM Doing morning adls with OT Patient min to mod assist for trsnsfers.No c/o headaches. Objective Exam Last Set of Vital Signs Vital Signs Date Time Temp Pulse Resp B/P (MAP) Pulse Ox O2 Delivery O2 Flow Rate FiO2 03/06/17 05:40 98.9 71 18 128/82 (97) 98 Room Air Capillary Refill : I&O Intake and Output 03/06/17 00:00 Intake Total 1770 ml Balance 1770 ml Intake Oral 1770 ml # Voids 6 # Bowel Movements 1 General: Alert, Oriented X3, Cooperative, No Acute Distress HEENT: PERRLA, EOMI, Mucous Memb Moist/[place], Other (crani site with sutures inplace healing well) Neck: Supple, No JVD Lungs: Clear to Auscultation Heart: Regular Rate Abdomen: Normal Bowel Sounds, Soft, No Tenderness, Other (Peg in place) Extremities: No Edema Neuro: Other (weakness left > rt) Assessment/Plan Assessment s/p 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 aphasia and dysphagia with Tube feeds currently on hold and on modified consistency diet HTN controlled GERD on meds Chronic constipation on meds SZ prophylaxis on Keppra Decardon taper DVT prophylaxis on Heparin SubCut Plan Continue PT/OT/ST SW to followup with [facility] re f/u for RT as an outpatient Taper decradon See orders-done Team Conference [facility] 03-04-17- See report for full functional update and POC Discharge reset for Thursday03-09-17 to home with spouse and HHC with [facility] JULIANA AGUIAR MD Mar 06, 2017 08:24
[2017-03-06] MEDS ORDERED: LEVE10006 PO (08:28)
[2017-03-06] MEDS ORDERED: DEXA4TAB PO (08:28)
--- NOTE | 2017-03-06 08:55 | Occupational Ther Daily Note ---
OT Current Status-Daily Note Subjective Pt alert, sitting in bed. Pt had ordered breakfast. Agreed to therapy. No c/ o pain at this time. Mental Status/Objective Patient Orientation: Person, Place, Time, Situation Functional [place] Measure 0=Not Assessed/NA 4=Minimal Assistance 1=Total Assistance 5=Supervision or Setup 2=Maximal Assistance 6=Modified [place] 3=Moderate Assistance 7=Complete [place] ADL-Treatment Pt declined shower today. Wanted to get hair washed. Pt completed own set up and used regular utensils to feed self. Pt ambulated into bathroom and transferred onto toilet with min A using FWW and grabbars. Pt complete hygiene sitting on toilet though required assist to hike pants down/up hips. Pt tends to lean toward L side and forward with dynamic standing if not supported. Pt then transferred to w/c using FWW with CGA. Pt required assist to wash hair. Then after set up, pt was able to don/doff shirt by self. Pt was able to don/ doff pants and socks over feet then min A to hike pants over hips. Pt is able to don/doff socks/shoes by self after setup. Functional [place] Measure 0=Not Assessed/NA 4=Minimal Assistance 1=Total Assistance 5=Supervision or Setup 2=Maximal Assistance 6=Modified [place] 3=Moderate Assistance 7=Complete IndependenceIRFPAI Quality Coding Scale 6 Independent with activity with or without an assistive device 5 Patient requires set up or clean up by helper. Patient completes activity by themselves 4 Supervision or touching assist (CGA). [place] provide cues , steadying assist 3 The helper provides less than half the effort to complete the activity 2 The helper provides more than half the effort to complete the activity 1 Dependent. The helper does all the effort to complete an activity 7 Patient refused to complete or attempt activity 9 The patient did not perform the activity before the current illness or injury 88 Not attempted due to Medical conditions or safety concerns Upper Body (FIM): 5 Upper Body Dressing (QC): 5 Lower Body Dressing (FIM): 4 Lower Body Dressing (QC): 3 On/Off Footwear (QC): 5 Toileting (FIM): 3 Toileting Hygiene (QC): 3 Toilet/Commode Transfer (FIM): 4 Toilet Transfer (QC): 3 Other Treatment Pt completed arm bike for 10 min at 20 carlson resistance, multiple recovery breaks, to increase strength and activity tolerance for daily functional tasks. Then pt completed fine motor strengthening and dexterity task with 4 breaks to increase strength and fine motor skills for dressing. After therapy, pt sitting in w/c with call light/phone in reach. All needs met in room. OT Short Term Goals Short Term Goals Time Frame: Mar 04, 2017 Eating(FIM): 5 Grooming(FIM): 5 Bathing(FIM): 4 Upper Body Dressing(FIM): 5 Lower Body Dressing(FIM): 4 Toileting(FIM): 4 Transfers (B,C,W/C) (FIM): 4 Toilet/Commode Transfer(FIM): 4 Shower Transfer(FIM): 3 Additional Short Term Goals: 1-Demonstrate ADL Tasks, 2-Verbalize Understanding , 3-ImproveStrength/Alicia 1=Demonstrate adherence to instructed precautions during ADL tasks. 2=Patient will verbalize/demonstrate understanding of assistive devices/ modifications for ADL. 3=Patient will improve strength/tolerance for activity to enable patient to perform ADL's. OT Rolling Mill Operator Goals Mcfp Goals Time Frame: Mar 18, 2017 Eating (FIM): 6 Eating (QC): 6 Groomin Oral Hygiene (QC): 5 Bathing(FIM): 4 Shower/Bathe Self (QC): 4 Upper Body Dressing(FIM): 5 Upper Body Dressing (QC): 5 Lower Body Dressing(FIM): 5 Lower Body Dressing (QC): 5 On/Off Footwear (QC): 5 Toileting(FIM): 5 Toileting Hygiene (QC): 5 Transfers (B,C,W/C) (FIM): 5 Toilet/Commode Transfer(FIM): 5 Toilet/Commode Transfer (QC): 5 Shower Transfer(FIM): 4 Additional Goals: 1-Demonstrate ADL Tasks, 2-Verbalize Understanding, 3- ImproveStrength/Alicia 1=Demonstrate adherence to instructed precautions during ADL tasks. 2=Patient will verbalize/demonstrate understanding of assistive devices/ modifications for ADL. 3=Patient will improve strength/tolerance for activity to enable patient to perform ADL's. OT Education/Plan Discharge Recommendations Plan/Recommendations: Continue POC Treatment Plan/Plan of Care Patient would benefit from OT for education, treatment and training to promote independence in ADL's, mobility, safety and/or upper extremity function for ADL' s. Plan of Care: ADL Retraining, Caregiver Training, Cognitive Retraining, Functional Mobility, Group Exercise/Act as Ind, UE Funct Exercise/Act Treatment Duration: Mar 18, 2017 Frequency: At least 5 of 7 days/Wk (IRF) Estimated Hrs Per Day: 1.5 hours per day Agreement: Yes Rehab Potential: Guarded Time/GCodes Start Time: 06:55 Stop Time: 08:35 Total Time Billed (hr/min): 100 Billed Treatment Time 1 visit-ADL 4 (65 min) EX 2 (35 min) JUANI LOTT Mar 06, 2017 08:55
--- NOTE | 2017-03-06 09:12 | Speech Therapy Daily Note ---
Speech Daily Progress Note Subjective Date Seen by Provider: Mar 06, 2017 Time Seen by Provider: 08:40 The patient was seated upright in wheelchair upon entrance. The patient greeted the clinician appropriately and was agreeable to participation in the dysphagia session. Objective Dysphagia Exercises: The patient continued based of tongue, pharyngeal contraction, and laryngeal elevation exercises with fair accuracy and mild to moderate clinician verbal cueing and direct modeling. Rationale for each exercise was discussed on this date and the patient verbalized comprehension of the material. The patient continues to fatigue quickly, however, always continues and participates in the therapy. Assessment Assessment Current Status: Good Progress Communication Comprehension: 4 Expression: 4 Social Cognition Social Interaction: 5 Problem Solvin Memory: 4 Speech Short Term Goals Short Term Goals Short Term Goals 1. The patient will demonstrate oropharyngeal swallowing exercises with 80% accuracy, independently. 2. The patient will recall and demonstrate three functional memory strategies for use at home with mild clinician verbal cueing. Time Frame-STG: Two Weeks Speech Hearing Aid Repair Technician Goals Hearing Aid Repair Technician Goals 1. The patient will demonstrate the least restrictive diet without signs/ symptoms of aspiration or laryngeal penetration. 2. The patient will demonstrate improved functional memory and use of memory strategies for increased function and safety at home. Time Frame: Three Weeks Speech-Plan Treatment Plan Speech Therapy Treatment Plan: Continue Plan of Care Continue skilled speech pathology to target swallowing exercises and strategies. Treatment Duration: Mar 12, 2017 Frequency: Modified Program (IRF) (Four to Five Times per Week) Estimated Hrs Per Day: .5 hour per day Rehab Potential: Guarded Safety Risks/Education Teaching Recipient: Patient Teaching Methods: Demonstration, Discussion Response to Teaching: Verbalize Understanding, Return Demonstration Education Topics Provided: Oropharyngeal Exercises Time Speech Therapy Time In: 08:40 Speech Therapy Time Out: 09:10 Total Billed Time: 30 Billed Treatment Time 1, ELEAZAR ALTAF AGUILA Mar 06, 2017 09:12
[2017-03-06] MEDS: ACETAMINOPHEN 325 MG TABLET/CAPLET (TYLENOL) PO PRN ×2 (10:27→15:21)
--- NOTE | 2017-03-06 10:44 | Physical Therapy Daily Note ---
PT Daily Note-Current Subjective Pt sitting in [facility] in room upon arrival. Pt agrees to PT. Pt feels anxious about BP and dizziness from yesterday. [employer] reassured pt that we would try if pt felt uncomfortable we would stop. Pain Numeric Pain Scale: 5-Moderate Pain Location: Right, Left Location Body Site: Knee Pain Description: Ache Mental Status Patient Orientation: Person, Place Transfers Functional [place] Measure 0=Not Assessed/NA 4=Minimal Assistance 1=Total Assistance 5=Supervision or Setup 2=Maximal Assistance 6=Modified [place] 3=Moderate Assistance 7=Complete IndependenceIRFPAI Quality Coding Scale 6 Independent with activity with or without an assistive device 5 Patient requires set up or clean up by helper. Patient completes activity by themselves 4 Supervision or touching assist (CGA). [place] provide cues , steadying assist 3 The helper provides less than half the effort to complete the activity 2 The helper provides more than half the effort to complete the activity 1 Dependent. The helper does all the effort to complete an activity 7 Patient refused to complete or attempt activity 9 The patient did not perform the activity before the current illness or injury 88 Not attempted due to Medical conditions or safety concerns Scootin Supine to/from Sit: 4 Sit to/from Stand: 4 Sit to Lying (QC): 4 Sit to Stand (QC): 4 Chair/Irh-it-Niotk Xfer(QC): 4 Bed to/from Chair: 4 Weight Bearing Right Lower Extremity: Right Weight Bearing/Tolerated Left Lower Extremity: Left Weight Bearing/Tolerated Gait Training Does the Patient Walk?: Yes Distance (FIM): 1=up to 49 ft Distance: 15' Walk 10 feet (QC): 3 Gait Level of Assist: 3 Gait Persons Needed: 1 Gait Assistive Device: FWW Pt allows FWW to get too much in front of pt and [employer] had to assist to bring it cloth bleaching range back tender. It happens a second time and pt's knees buckle and pt "melts" to her knees. Pt is helped back into [facility] to rest. Wheelchair Training Does the Pt Use a Wheelchair?: Yes Wheelchair Distance: 0=712-41 ft Distance: 125' Wheelchair Level of Assist: 4 Wheel 50 ft with 2 turns (QC): 4 Type of Wheelchair: Manual Exercises Seated Therapy Exercises: Ankle pumps, Long arc quads, Hip flexion, Kicking activity Seated Reps: 20 NuStep Minutes: 15 NuStep Workload: 5 Treatments Pt propels [facility] to Therapy Gym at Min A. Pt uses NuStep for 15m at Workload 5. Pt then takes short rest before standing from [facility] to walk in Therapy Gym. Pt allows FWW to get too much in front of pt and [employer] had to assist to bring it cloth bleaching range back tender. It happens a second time and pt's knees buckle and pt "melts" to her knees. Pt is helped back into [facility] to rest. Nurse is notified. [employer] propels [facility] back to room after brief rest and Seated EX to test strength and ROM after fall. Pt transfers to Supine in bed from [facility] to rest. Pt rests at end of tx with all needs met. Assessment Current Status: Fair Progress Pt does not report feeling dizzy nor problem with blood pressure during tx. Pt lets FWW get too far out in front during ambulation. PT Short Term Goals Short Term Goals Time Frame: Feb 25, 2017 Transfers (B,C,W/C) (FIM): 4 Gait (FIM): 1 Gait Distance Comment: 10' Gait Level of Assist: 3 Gait Assistive Device: Parallel Bars Wheelchair (FIM): 2 Wheelchair Distance: 50' x 2 Wheelchair Level of Assist: 4 PT Selling Manager Goals Mcc Goals PT Mcc Goals Time Frame: Mar 11, 2017 Transfers (B,C,W/C) (FIM): 4 Sit to Lying (QC): 4 Lying-Sitting on Side/Bed(QC): 4 Sit to Stand (QC): 3 Rollin Roll Left to Right (QC): 4 Chair/[id number]-Tjcqp Xfer(QC): 3 Car Transfer (QC): 3 Does the Patient Walk: No and Walking Goal IS indicated Gait (FIM): 1 Distance: 20' Walk 10 feet (QC): 3 Gait Level of Assist: 4 Gait Assistive Device: FWW Does the Pt use WC or Scooter?: Yes Wheelchair (FIM): 4 Distance: 150' Wheelchair Level of Assist: 4 Wheel 50 feet with 2 turns (QC: 3 Stairs (FIM): 1 # of Steps: 1 1 Step (curb) (QC): 3 4 Steps (QC): 88 12 Steps (QC): 88 Stairs Level Of Assist: 4 Picking up an Object (QC): 88 PT Plan Problem List Problem List: Activity Tolerance, Functional Strength, Safety, Balance, Gait, Transfer Treatment/Plan Treatment Plan: Continue Plan of Care Treatment Plan: Bed Mobility, Concurrent Therapy, Education, Functional Activity Alicia, Functional Strength, Group Therapy, Gait, Safety, Therapeutic Exercise, Transfers Treatment Duration: Mar 11, 2017 Frequency: At least 5 of 7 days/Wk (IRF) Estimated Hrs Per Day: 1.5 hours per day Patient and/or Family Agrees t: Yes Safety Risks/Education Patient Education: Gait Training, Transfer Techniques, Correct Positioning, Safety Issues Teaching Recipient: Patient Teaching Methods: Discussion Response to Teaching: Reinforcement Needed Time/GCodes Time In: 930 Time Out: 1020 Total Billed Treatment Time: 50 Total Billed Treatment 1, WCH(15m), GT (15m) & EX (20m) CYN CHIANG [employer] Mar 06, 2017 10:43
--- NOTE | 2017-03-06 11:29 | Diagnostic Imaging Report ---
EXAMINATION: Two views of the left knee. INDICATION: Left knee pain. FINDINGS: No fracture, dislocation or radiopaque foreign body. No suprapatellar effusion is seen. The articular surfaces appear unremarkable. There is a spur seen along the quadriceps insertion. IMPRESSION: No acute process. Dictated by: Dictated on workstation # [id number]
[2017-03-06 18:01] VITALS: BP 98/64
[2017-03-06] MEDS: ATORVASTATIN 80 MG (LIPITOR) TABLET PEG SCH (20:35)
[2017-03-07 06:01] VITALS: BP 121/74
[2017-03-07] MEDS: PANTOPRAZOLE 20 MG TABLET (PROTONIX) PO SCH (06:32)
[2017-03-07] MEDS: CYANOCOBALAMIN 500 MCG TAB (VITAMIN B-12) PEG SCH (06:32)
[2017-03-07] MEDS: DOCUSATE SODIUM 100 MG (COLACE) CAP PO SCH ×2 (08:11→20:13)
[2017-03-07] MEDS: ENOXAPARIN 40 MG/0.4 ML (LOVENOX) SYR SC SCH (08:12)
[2017-03-07] MEDS: DEXAMETHASONE 4 MG TAB (DECADRON) PO SCH (08:12)
[2017-03-07] MEDS: FAMOTIDINE 20 MG (PEPCID) TABLET PEG SCH (08:12)
[2017-03-07] MEDS: ATENOLOL 50 MG (TENORMIN) TAB PEG SCH (08:12)
[2017-03-07] MEDS: LEVETIRACETAM 1,000 MG (KEPPRA) TABLET PO SCH ×2 (08:12→20:13)
[2017-03-07] MEDS: amLODIPine 2.5MG (NORVASC) TAB PO SCH (08:12)
--- NOTE | 2017-03-07 08:24 | Physical Therapy Daily Note ---
PT Daily Note-Current Subjective Pt. wants top get up and get dressed Pain Numeric Pain Scale: 3 Location: Medial Location Body Site: Abdomen Pain Description: Pressure Mental Status Patient Orientation: Person, Place, Time, Eyes Open, Situation Attachments: PEG Tube Transfers Functional [place] Measure 0=Not Assessed/NA 4=Minimal Assistance 1=Total Assistance 5=Supervision or Setup 2=Maximal Assistance 6=Modified [place] 3=Moderate Assistance 7=Complete IndependenceIRFPAI Quality Coding Scale 6 Independent with activity with or without an assistive device 5 Patient requires set up or clean up by helper. Patient completes activity by themselves 4 Supervision or touching assist (CGA). [place] provide cues , steadying assist 3 The helper provides less than half the effort to complete the activity 2 The helper provides more than half the effort to complete the activity 1 Dependent. The helper does all the effort to complete an activity 7 Patient refused to complete or attempt activity 9 The patient did not perform the activity before the current illness or injury 88 Not attempted due to Medical conditions or safety concerns Transfers (B, C, W/C) (FIM): 4 Scootin Rollin Supine to/from Sit: 5 Sit to/from Stand: 4 Weight Bearing Right Lower Extremity: Right Weight Bearing/Tolerated Left Lower Extremity: Left Weight Bearing/Tolerated Gait Training Does the Patient Walk?: Yes Gait (FIM): 1 Distance (FIM): 1=up to 49 ft (8ft) Gait Level of Assist: 3 Gait Persons Needed: 1 Gait Assistive Device: FWW Wheelchair Training Does the Pt Use a Wheelchair?: Yes Wheelchair (FIM): 2 Wheelchair Distance: 0=229-70 ft ([id number]) Wheelchair Level of Assist: 4 Type of Wheelchair: Manual reminder to brakes w/c Exercises Supine Ex: Rolling, Heel Slides, Hip abd/add Supine Reps: 12 Seated Therapy Exercises: Ankle pumps, Sit to stand, Long arc quads, Hip flexion, Hip abd/add Seated Reps: 12 Assessment Current Status: Good Progress PT Short Term Goals Short Term Goals Time Frame: Feb 25, 2017 Transfers (B,C,W/C) (FIM): 4 Gait (FIM): 1 Gait Distance Comment: 10' Gait Level of Assist: 3 Gait Assistive Device: Parallel Bars Wheelchair (FIM): 2 Wheelchair Distance: 125' Wheelchair Level of Assist: 4 PT Chief Electrician Goals Longterm Goals PT Longterm Goals Time Frame: Mar 11, 2017 Transfers (B,C,W/C) (FIM): 4 Sit to Lying (QC): 4 Lying-Sitting on Side/Bed(QC): 4 Sit to Stand (QC): 3 Rollin Roll Left to Right (QC): 4 Chair/Xjq-kp-Ufexg Xfer(QC): 3 Car Transfer (QC): 3 Does the Patient Walk: No and Walking Goal IS indicated Gait (FIM): 1 Distance: 20' Walk 10 feet (QC): 3 Gait Level of Assist: 4 Gait Assistive Device: FWW Does the Pt use WC or Scooter?: Yes Wheelchair (FIM): 4 Distance: 150' Wheelchair Level of Assist: 4 Wheel 50 feet with 2 turns (QC: 3 Stairs (FIM): 1 # of Steps: 1 1 Step (curb) (QC): 3 4 Steps (QC): 88 12 Steps (QC): 88 Stairs Level Of Assist: 4 Picking up an Object (QC): 88 PT Plan Treatment/Plan Treatment Plan: Continue Plan of Care Treatment Plan: Bed Mobility, Concurrent Therapy, Education, Functional Activity Alicia, Functional Strength, Group Therapy, Gait, Safety, Therapeutic Exercise, Transfers Treatment Duration: Mar 11, 2017 Frequency: At least 5 of 7 days/Wk (IRF) Estimated Hrs Per Day: 1.5 hours per day Patient and/or Family Agrees t: Yes Safety Risks/Education Patient Education: Gait Training, Transfer Techniques, Correct Positioning, W/ C Management, Disease Process, Safety Issues Teaching Recipient: Patient Teaching Methods: Demonstration, Discussion Response to Teaching: Verbalize Understanding, Return Demonstration, Reinforcement Needed Time/GCodes Time In: 725 Time Out: 750 Total Billed Treatment Time: 25 Total Billed Treatment 1,FA15m,WC10m G Codes Necessary: No JOCELYNE REDMOND FOAMITE MIXER Mar 07, 2017 08:24
[2017-03-07] MEDS: ACETAMINOPHEN 325 MG TABLET/CAPLET (TYLENOL) PO PRN (12:03)
[2017-03-07 18:00] VITALS: BP 95/60
[2017-03-07] MEDS: ATORVASTATIN 80 MG (LIPITOR) TABLET PEG SCH (20:13)
[2017-03-08 05:46] VITALS: BP 113/67
[2017-03-08] MEDS: CYANOCOBALAMIN 500 MCG TAB (VITAMIN B-12) PEG SCH (06:05)
[2017-03-08] MEDS: PANTOPRAZOLE 20 MG TABLET (PROTONIX) PO SCH (06:05)
[2017-03-08 08:34] VITALS: BP 106/70
[2017-03-08] MEDS: ATENOLOL 50 MG (TENORMIN) TAB PEG SCH (08:36)
[2017-03-08] MEDS: DEXAMETHASONE 4 MG TAB (DECADRON) PO SCH (08:36)
[2017-03-08] MEDS: FAMOTIDINE 20 MG (PEPCID) TABLET PEG SCH (08:36)
[2017-03-08] MEDS: amLODIPine 2.5MG (NORVASC) TAB PO SCH (08:36)
[2017-03-08] MEDS: LEVETIRACETAM 1,000 MG (KEPPRA) TABLET PO SCH ×2 (08:36→20:03)
[2017-03-08] MEDS: DOCUSATE SODIUM 100 MG (COLACE) CAP PO SCH ×2 (08:36→20:03)
[2017-03-08] MEDS: ENOXAPARIN 40 MG/0.4 ML (LOVENOX) SYR SC SCH (08:37)
[2017-03-08 17:13] VITALS: BP 106/70
[2017-03-08] MEDS: ACETAMINOPHEN 325 MG TABLET/CAPLET (TYLENOL) PO PRN (17:38)
[2017-03-08] MEDS: ATORVASTATIN 80 MG (LIPITOR) TABLET PEG SCH (20:03)
[2017-03-09 04:43] VITALS: BP 111/74
[2017-03-09] MEDS: CYANOCOBALAMIN 500 MCG TAB (VITAMIN B-12) PEG SCH (06:04)
[2017-03-09] MEDS: PANTOPRAZOLE 20 MG TABLET (PROTONIX) PO SCH (06:04)
--- NOTE | 2017-03-09 07:53 | Progress Note (SOAP) ---
Subjective Time Seen by Provider: 07:40 Subjective/Events-last exam GLIOBLASTOMA. PATIENT SPEAKING BETTER. Patient to be discharged today. Patient to start radiation therapy. Patient excited to go home Objective Exam Vital Signs Date Time Temp Pulse Resp B/P (MAP) Pulse Ox O2 Delivery O2 Flow Rate FiO2 03/09/17 04:43 98.2 67 18 111/74 (86) 97 Room Air 03/08/17 20:05 Room Air 03/08/17 17:13 97.2 69 18 106/70 (82) 97 Room Air 03/08/17 09:20 Room Air 03/08/17 08:34 89 106/70 (82) 97 Room Air I & O 03/09/17 07:00 Intake Total 2188 ml Balance 2188 ml Capillary Refill : General Appearance: No Apparent Distress, WD/WN Assessment/Plan Assessment/Plan Assess & Plan/Chief Complaint glioblastoma. Hypertension. Hyperlipidemia. GERD. Viral encephalitis. Chronic constipation. Vitamin B12 deficiency. Vitamin D deficiency. . 02/19/17. Glioblastoma. Hypertension. Hyperlipidemia. GERD Vitamin B12 deficiency. Vitamin D deficiency. Patient feeling better this morning. . Glioblastoma. Hypertension. Hyperlipidemia. GERD. Patient has trouble with thought process.. . 03/08. Glioblastoma. Hypertension under control. Hyperlipidemia. GERD. Patient's confusion is less. . 02/24/17. Glioblastoma. Hypertension. Hyperlipidemia. GERD. Patient talked better today. Patient to take oral medications. . 02/25/17. Glioblastoma. Hypertension. Hyperlipidemia. GERD area Patient have modified barium swallow today. Patient to see a radiation oncologist at 1 p.m. today. Patient voices no complaints. . 02/26/17. Glioblastoma. Hypertension. Hyperlipidemia. GERD. Patient passed modified barium swallow study. Patient told me about seeing radiation oncology as yesterday. Patient to go to [facility] next Thu.. . 12 square-shaped clear 17. Glioblastoma. Hypertension. Hyperlipidemia. GERD. Patient positive. Patient has pain in left hip and knee. . 03/02/17. Glioblastoma. Hypertension. Hyperlipidemia. gERD. Patient speech is better. . 03/03/17. Glioblastoma. Hypertension. Hyperlipidemia. GERD. Patient walking better. Patient slept process and speech is improving but not completely Patient walking better with minimal assist. . 03/05/17. Glioblastoma. Hypertension. Hyperlipidemia. GERD. Patient speaking better. Patient went to [facility] yesterday. Patient to start radiation treatments. . 03/06/17. Glioblastoma. Hypertension. Hyperlipidemia. GERD. Patient doing better.. patient has no complaints today. . 03/09/17. Glioblastoma. Hypertension. Hyperlipidemia. GERD. patient to be discharged today. Patient to have radiation therapy this afternoon Clinical Quality Measures DVT/VTE Risk/Contraindication: Risk Factor Score Per Nursin RFS Level Per Nursing on Admit: 4+=Very High GANESH HEADLEY DO Mar 09, 2017 07:53
[2017-03-09] MEDS: ENOXAPARIN 40 MG/0.4 ML (LOVENOX) SYR SC SCH (08:28)
[2017-03-09] MEDS: DOCUSATE SODIUM 100 MG (COLACE) CAP PO SCH (08:29)
[2017-03-09] MEDS: VITAMIN D2 50,000 UNITS (1.25 MG) CAP PO SCH (08:29)
[2017-03-09] MEDS: FAMOTIDINE 20 MG (PEPCID) TABLET PEG SCH (08:29)
[2017-03-09] MEDS: DEXAMETHASONE 4 MG TAB (DECADRON) PO SCH (08:29)
[2017-03-09] MEDS: ATENOLOL 50 MG (TENORMIN) TAB PEG SCH (08:29)
[2017-03-09] MEDS: amLODIPine 2.5MG (NORVASC) TAB PO SCH (08:29)
[2017-03-09] MEDS: LEVETIRACETAM 1,000 MG (KEPPRA) TABLET PO SCH (08:29)
--- NOTE | 2017-03-09 09:01 | Physical Therapy Daily Note ---
PT Daily Note-Current Subjective Pt. states she has double vision . States as she sits up right she sees clearer. Questions what her schedule will be today for therapies , cancer Rxs as well as DC Pain Numeric Pain Scale: 3 Location: Medial Location Body Site: Abdomen Pain Description: Pressure Mental Status Patient Orientation: Confused Attachments: PEG Tube needs cues and instruction and reminders/explanation for all Transfers Functional [place] Measure 0=Not Assessed/NA 4=Minimal Assistance 1=Total Assistance 5=Supervision or Setup 2=Maximal Assistance 6=Modified [place] 3=Moderate Assistance 7=Complete IndependenceIRFPAI Quality Coding Scale 6 Independent with activity with or without an assistive device 5 Patient requires set up or clean up by helper. Patient completes activity by themselves 4 Supervision or touching assist (CGA). [place] provide cues , steadying assist 3 The helper provides less than half the effort to complete the activity 2 The helper provides more than half the effort to complete the activity 1 Dependent. The helper does all the effort to complete an activity 7 Patient refused to complete or attempt activity 9 The patient did not perform the activity before the current illness or injury 88 Not attempted due to Medical conditions or safety concerns Transfers (B, C, W/C) (FIM): 3 Scootin Rollin Roll Left to Right (QC): 5 Supine to/from Sit: 3 Sit to/from Stand: 4 Sit to Lying (QC): 3 Sit to Stand (QC): 4 Chair/Nct-vg-Egjzj Xfer(QC): 3 Bed to/from Chair: 3 Car Transfer (QC): 3 Weight Bearing Right Lower Extremity: Right Weight Bearing/Tolerated Left Lower Extremity: Left Weight Bearing/Tolerated Gait Training Does the Patient Walk?: Yes Gait (FIM): 1 Distance (FIM): 1=up to 49 ft (12ftx3) Walk 10 feet (QC): 3 Gait Level of Assist: 3 Gait Persons Needed: 1 Gait Assistive Device: FWW Pt. having great difficulty with listing to right as well as weakness with any activity. On feet with gait pt. melting at knees and hips, w/c to follow close behind 12 ft with c/o fatigue and pain in abdomen Wheelchair Training Does the Pt Use a Wheelchair?: Yes Wheelchair (FIM): 4 Wheelchair Distance: 3=150 ft Wheelchair Level of Assist: 4 Wheel 50 ft with 2 turns (QC): 4 Wheel 150 ft (QC): 4 Type of Wheelchair: Manual needs reminders for all safety and braking etc. listing heavy, difficulty sitting upright Stair Training unsafe , unable Balance Special Test Comments unsafe, unable Assessment Current Status: Poor Progress pt. appears to be declining functionally PT Short Term Goals Short Term Goals Time Frame: Feb 25, 2017 Transfers (B,C,W/C) (FIM): 4 Gait (FIM): 1 Gait Distance Comment: 10' Gait Level of Assist: 3 Gait Assistive Device: Parallel Bars Wheelchair (FIM): 2 Wheelchair Distance: 125' Wheelchair Level of Assist: 4 PT Correction Goals Correction Goals PT Correction Goals Time Frame: Mar 11, 2017 Transfers (B,C,W/C) (FIM): 4 Sit to Lying (QC): 4 Lying-Sitting on Side/Bed(QC): 4 Sit to Stand (QC): 3 Rollin Roll Left to Right (QC): 4 Chair/Hgu-kl-Cvtyx Xfer(QC): 3 Car Transfer (QC): 3 Does the Patient Walk: No and Walking Goal IS indicated Gait (FIM): 1 Distance: 20' Walk 10 feet (QC): 3 Gait Level of Assist: 4 Gait Assistive Device: FWW Does the Pt use WC or Scooter?: Yes Wheelchair (FIM): 4 Distance: 150' Wheelchair Level of Assist: 4 Wheel 50 feet with 2 turns (QC: 3 Stairs (FIM): 1 # of Steps: 1 1 Step (curb) (QC): 3 4 Steps (QC): 88 12 Steps (QC): 88 Stairs Level Of Assist: 4 Picking up an Object (QC): 88 PT Plan Treatment/Plan Treatment Plan: Discontinue PT, goals met Treatment Plan: Bed Mobility, Concurrent Therapy, Education, Functional Activity Alicia, Functional Strength, Group Therapy, Gait, Safety, Therapeutic Exercise, Transfers Treatment Duration: Mar 11, 2017 Frequency: At least 5 of 7 days/Wk (IRF) Estimated Hrs Per Day: 1.5 hours per day Patient and/or Family Agrees t: Yes Safety Risks/Education Patient Education: Gait Training, Transfer Techniques, Correct Positioning, W/ C Management, Disease Process, Safety Issues Teaching Recipient: Patient Teaching Methods: Demonstration, Discussion Response to Teaching: Unable to Return Demonstration, Return Demonstration, Reinforcement Needed Time/GCodes Time In: 815 Time Out: 850 Total Billed Treatment Time: 35 Total Billed Treatment 1,FA20,GT15 G Codes Necessary: JOCELYNE Bernal PTA Mar 09, 2017 09:01
--- NOTE | 2017-03-09 10:17 | Therapy Team Discharge Summary ---
Therapy Discharge Summary Discharge Recommendations Date of Discharge 03/09/17 Therapy D/C Recommendations: 24 hr Supervision, Home w/ Family Support Physical Therapy This patient has been seen for skilled PT intervention post craniotomy due to glioblastoma. Upon admission, she was quite weak, requiring much assist with all functional mobility. She was max assist with transfers, unable to ambulate (could supervisor stripping // bars) and required max assist for wheelchair mobility. Treatment has focused on functional strength to progress gait and transfers as well as balance training to enhance her safety. This date, she is mod assist with tranfers, ambulated 12 ft x3 with fWW with much assist and min assist with wheelchair mobility. She has made functional gains, but seems to not be having a good day today. Her balance is functionally impaired with decreased safety. She has achieved goals set at evaluation. The plan is for her to initiate radiation treatment and discharge home with her spouse. There has been transfer and patient safety discussions with the spouse througtout the course of her stay and he has expressed that he feels he can manage her mobility. Pt to discharge home this date. Recommend follow up skilled PT at home. Occupational Therapy Decreased Activ Tolerance, Dependent Transfers, Impaired Cognition, Impaired I ADL's, Impaired Self-Care Skills PT Halfway Goals Halfway Goals PT Halfway Goals Time Frame: Mar 11, 2017 Transfers (B,C,W/C) (FIM): 4 (unmet, scored a 3) Roll Left to Right (QC): 4 Sit to Lying (QC): 4 Lying-Sitting on Side/Bed(QC): 4 Sit to Stand (QC): 3 Chair/Yyg-jd-[place] Xfer(QC): 3 Car Transfer (QC): 3 Does the Patient Walk: No and Walking Goal IS indicated Gait (FIM): 1 (met) Distance: 20' Walk 10 feet (QC): 3 Gait Level of Assist: 4 Gait Assistive Device: FWW Does the Pt use WC or Scooter?: Yes Wheelchair (FIM): 4 (et) Distance: 150' Wheelchair Level of Assist: 4 Wheel 50 feet with 2 turns (QC: 3 Stairs (FIM): 1 (met) # of Steps: 1 1 Step (curb) (QC): 3 4 Steps (QC): 88 12 Steps (QC): 88 Stairs Level Of Assist: 4 Picking up an Object (QC): 88 OT Halfway Goals Halfway Goals Time Frame: Mar 18, 2017 Eating (FIM): 6 Eating (QC): 6 Oral Hygiene (QC): 5 Grooming(FIM): 5 Bathing(FIM): 4 Shower/Bathe Self (QC): 4 Upper Body Dressing(FIM): 5 Upper Body Dressing (QC): 5 Lower Body Dressing(FIM): 5 Lower Body Dressing (QC): 5 On/Off Footwear (QC): 5 Toileting(FIM): 5 Toileting Hygiene (QC): 5 Transfers (B,C,W/C) (FIM): 5 Toilet/Commode Transfer(FIM): 5 Toilet/Commode Transfer (QC): 5 Shower Transfer(FIM): 4 Additional Goals: 1-Demonstrate ADL Tasks, 2-Verbalize Understanding, 3- ImproveStrength/Alicia 1=Demonstrate adherence to instructed precautions during ADL tasks. 2=Patient will verbalize/demonstrate understanding of assistive devices/ modifications for ADL. 3=Patient will improve strength/tolerance for activity to enable patient to perform ADL's. Speech Signal Helper Goals Signal Helper Goals 1. The patient will demonstrate the least restrictive diet without signs/ symptoms of aspiration or laryngeal penetration. 2. The patient will demonstrate improved functional memory and use of memory strategies for increased function and safety at home. Time Frame: Three Weeks JUANI MARIN PT Mar 09, 2017 10:17
--- NOTE | 2017-03-09 10:58 | Occupational Ther Daily Note ---
OT Current Status-Daily Note Subjective Pt. states that she is tired. Appearance Pt. up in wheelchair. Agrees to shower with OT assist. Requests to then lay back down. Mental Status/Objective Patient Orientation: Unable to Assess Functional [place] Measure 0=Not Assessed/NA 4=Minimal Assistance 1=Total Assistance 5=Supervision or Setup 2=Maximal Assistance 6=Modified [place] 3=Moderate Assistance 7=Complete [place] Attachments: PEG Tube ADL-Treatment Functional [place] Measure 0=Not Assessed/NA 4=Minimal Assistance 1=Total Assistance 5=Supervision or Setup 2=Maximal Assistance 6=Modified [place] 3=Moderate Assistance 7=Complete IndependenceIRFPAI Quality Coding Scale 6 Independent with activity with or without an assistive device 5 Patient requires set up or clean up by helper. Patient completes activity by themselves 4 Supervision or touching assist (CGA). [place] provide cues , steadying assist 3 The helper provides less than half the effort to complete the activity 2 The helper provides more than half the effort to complete the activity 1 Dependent. The helper does all the effort to complete an activity 7 Patient refused to complete or attempt activity 9 The patient did not perform the activity before the current illness or injury 88 Not attempted due to Medical conditions or safety concerns Grooming (FIM): 4 (Min assist to brush hair.) Oral Hygiene (QC): 4 (Min assist to brush teeth) Bathing (FIM): 3 (Pt. is able to wash most parts while seated on bench in shower. However, noted that her balance is unsteady today and OT had to assist her with upright posture throughout shower task.) Shower/Bathe Self (QC): 3 Upper Body (FIM): 2 (Pt. required max assist to don bra and shirt.) Upper Body Dressing (QC): 2 Lower Body Dressing (FIM): 2 (Pt. transferred back to bed due to poor balance while in shower and in chair. In supine, she was able to bring her right foot up and don brief and pants over foot. Attempted this with left foot, but required assist. Pt. then could not fully lug breaker and wire puller hips while rolling. Pt. would roll sided to side and OT would lug breaker and wire puller hips.) Lower Body Dressing (QC): 2 On/Off Footwear (QC): 2 Toileting (FIM): 1 (Pt. sits on toilet and has difficulty having BM. Noted decreased balance and so walker provided for pt. to hold onto. Pt. attempted to cleanse self, but could not do this. OT did this for her. OT pulled down brief and pulled it back up.) Toileting Hygiene (QC): 1 Transfers (B, C, W/C) (FIM): 2 Toilet/Commode Transfer (FIM): 2 Toilet Transfer (QC): 2 Shower Transfer(FIM): 2 Other Treatment pt. very fatigued today. Also noted decreased cognition today. Pt. requires multiple cues to complete tasks. Poor safety awareness at times. Due to poor balance in shower, pt. was assisted back to wheelchair and then to bed to finish LE dressing. All needs met after bathing and dressing tasks, and pt. made comfortable. Education OT Patient Education: Correct positioning, Modified ADL techniques, Progress toward Goal/Update tx plan, Purpose of tx/functional activities, Reviewed precautions, Rehab process, Transfer techniques, Use of adapted equipment Teaching Recipient: Patient Teaching Methods: Demonstration, Discussion Response to Teaching: Verbalize Understanding, Return Demonstration OT Short Term Goals Short Term Goals Time Frame: Mar 04, 2017 Eating(FIM): 5 Grooming(FIM): 5 Bathing(FIM): 4 Upper Body Dressing(FIM): 5 Lower Body Dressing(FIM): 4 Toileting(FIM): 4 Transfers (B,C,W/C) (FIM): 4 Toilet/Commode Transfer(FIM): 4 Shower Transfer(FIM): 3 Additional Short Term Goals: 1-Demonstrate ADL Tasks, 2-Verbalize Understanding , 3-ImproveStrength/Alicia 1=Demonstrate adherence to instructed precautions during ADL tasks. 2=Patient will verbalize/demonstrate understanding of assistive devices/ modifications for ADL. 3=Patient will improve strength/tolerance for activity to enable patient to perform ADL's. OT Cork Tile Floor Layer Goals Cork Tile Floor Layer Goals Time Frame: Mar 18, 2017 Eating (FIM): 6 Eating (QC): 6 Groomin Oral Hygiene (QC): 5 Bathing(FIM): 4 Shower/Bathe Self (QC): 4 Upper Body Dressing(FIM): 5 Upper Body Dressing (QC): 5 Lower Body Dressing(FIM): 5 Lower Body Dressing (QC): 5 On/Off Footwear (QC): 5 Toileting(FIM): 5 Toileting Hygiene (QC): 5 Transfers (B,C,W/C) (FIM): 5 Toilet/Commode Transfer(FIM): 5 Toilet/Commode Transfer (QC): 5 Shower Transfer(FIM): 4 Additional Goals: 1-Demonstrate ADL Tasks, 2-Verbalize Understanding, 3- ImproveStrength/Alicia 1=Demonstrate adherence to instructed precautions during ADL tasks. 2=Patient will verbalize/demonstrate understanding of assistive devices/ modifications for ADL. 3=Patient will improve strength/tolerance for activity to enable patient to perform ADL's. OT Education/Plan Problem List/Assessment Assessment: Decreased Activ Tolerance, Decreased Safety Aware, Decreased UE Strength, Dependent Transfers, Impaired Bed Mobility, Impaired Cognition, Impaired Coordination, Impaired Funct Balance, Impaired I ADL's, Impaired Self- Care Skills, Restricted Funct UE ROM, Visual-Perceptual Deficit Discharge Recommendations Plan/Recommendations: Follow-up Planned Therapy D/C Recommendations: Home w/ Family Support, Occupational Therapy Home Care, Scheduled Assistance Comment Pt. to discharge today. Spouse has needed equipment. Recommend continued OT. Barriers to Progress Cognition and strength. Target Placement Home with spouse and home health. Treatment Plan/Plan of Care Treatment,Training & Education: Yes Patient would benefit from OT for education, treatment and training to promote independence in ADL's, mobility, safety and/or upper extremity function for ADL' s. Plan of Care: ADL Retraining, Caregiver Training, Cognitive Retraining, Functional Mobility, Group Exercise/Act as Ind, UE Funct Exercise/Act Treatment Duration: Mar 18, 2017 Frequency: At least 5 of 7 days/Wk (IRF) Estimated Hrs Per Day: 1.5 hours per day Agreement: Yes Rehab Potential: Guarded Time/GCodes Start Time: 10:00 Stop Time: 10:40 Total Time Billed (hr/min): 40 Billed Treatment Time 1, ADL x 3 LIGIA CERRATO OT Mar 09, 2017 10:58
--- NOTE | 2017-03-09 10:59 | Speech Therapy Daily Note ---
Speech Daily Progress Note Subjective Date Seen by Provider: Mar 09, 2017 Time Seen by Provider: 09:45 The patient was seated upright in wheelchair upon entrance. The patient greeted the clinician and was agreeable to participation in the dysphagia treatment session. The patient stated she was "so, so tired but I will stay up until after my bath at 10:00." The patient appears excited to return home following discharge on this date but does discuss anxieties involving the change. Objective Diet Tolerance: The patient was evaluated with thin liquid consistencies (water via cup). The patient independently demonstrated small sips. No signs/symptoms of aspiration were demonstrated with multiple cup drinks of thin liquid. The patient's vocal quality remained clear. Swallowing Strategies: Swallowing strategies were discussed and demonstrated throughout the session. The patient independently recalled the importance of small sips, as well as, focusing on her meals and reducing distractions throughout periods of PO. Assessment Assessment Current Status: Good Progress Treatment Plan Discontinue ST Communication Comprehension: 4 Expression: 4 Social Cognition Social Interaction: 5 Problem Solvin Memory: 4 Speech Short Term Goals Short Term Goals Short Term Goals 1. The patient will demonstrate oropharyngeal swallowing exercises with 80% accuracy, independently. MET 2. The patient will recall and demonstrate three functional memory strategies for use at home with mild clinician verbal cueing. MET Time Frame-STG: Two Weeks Speech Halfway Goals Director Of Conservation Goals 1. The patient will demonstrate the least restrictive diet without signs/ symptoms of aspiration or laryngeal penetration. MET 2. The patient will demonstrate improved functional memory and use of memory strategies for increased function and safety at home. PROGRESSING Time Frame: Three Weeks Speech-Plan Treatment Plan Speech Therapy Treatment Plan: Discontinue ST The patient will discharge home on this date. Treatment Duration: Mar 12, 2017 Frequency: Modified Program (IRF) (Four to Five Times per Week) Estimated Hrs Per Day: .5 hour per day Rehab Potential: Guarded Safety Risks/Education Teaching Recipient: Patient Teaching Methods: Discussion Response to Teaching: Verbalize Understanding Education Topics Provided: Swallowing Strategies, Signs/symptoms of aspiration Time Speech Therapy Time In: 09:45 Speech Therapy Time Out: 09:55 Total Billed Time: 10 Billed Treatment Time 1, ELEAZAR ALTAF AGUILA Mar 09, 2017 10:59
--- NOTE | 2017-03-09 11:05 | Therapy Team Discharge Summary ---
Therapy Discharge Summary Discharge Recommendations Date of Discharge 03-09-17 Therapy D/C Recommendations: Home w/ Family Support, Occupational Therapy Home Care, Scheduled Assistance Occupational Therapy Pt. has been seen by occupational therapy to increase overall strength and independence with daily tasks. Pt. demonstrates weakness and decreased balance , as well as cognitive issues at times, that makes independence difficult. Pt. was making progress, but seems to have back slided since beginning radiation treatment. Pt. does plan to discharge today with spouse assist, and continue with home health as well as radiation treatment. All needs were met today in room after pt. showered and dressed. pt. states that she is excited to leave. Decreased Activ Tolerance, Decreased Safety Aware, Decreased UE Strength, Dependent Transfers, Impaired Bed Mobility, Impaired Cognition, Impaired Coordination, Impaired Funct Balance, Impaired I ADL's, Impaired Self-Care Skills, Restricted Funct UE ROM, Visual-Perceptual Deficit PT Loading And Unloading Supervisor Goals Custodial Goals PT Custodial Goals Time Frame: Mar 11, 2017 Transfers (B,C,W/C) (FIM): 4 (unmet, scored a 3) Roll Left to Right (QC): 4 Sit to Lying (QC): 4 Lying-Sitting on Side/Bed(QC): 4 Sit to Stand (QC): 3 Chair/Kgf-ma-Bwhfz Xfer(QC): 3 Car Transfer (QC): 3 Does the Patient Walk: No and Walking Goal IS indicated Gait (FIM): 1 (met) Distance: 20' Walk 10 feet (QC): 3 Gait Level of Assist: 4 Gait Assistive Device: FWW Does the Pt use WC or Scooter?: Yes Wheelchair (FIM): 4 (et) Distance: 150' Wheelchair Level of Assist: 4 Wheel 50 feet with 2 turns (QC: 3 Stairs (FIM): 1 (met) # of Steps: 1 1 Step (curb) (QC): 3 4 Steps (QC): 88 12 Steps (QC): 88 Stairs Level Of Assist: 4 Picking up an Object (QC): 88 OT Loading And Unloading Supervisor Goals Loading And Unloading Supervisor Goals Time Frame: Mar 18, 2017 Eating (FIM): 6 (not met) Eating (QC): 6 (not met) Oral Hygiene (QC): 5 (not met) Grooming(FIM): 5 (not met) Bathing(FIM): 4 (not met) Shower/Bathe Self (QC): 4 (not met) Upper Body Dressing(FIM): 5 (not met) Upper Body Dressing (QC): 5 (not met) Lower Body Dressing(FIM): 5 (not met) Lower Body Dressing (QC): 5 (not met) On/Off Footwear (QC): 5 (not met) Toileting(FIM): 5 (not met) Toileting Hygiene (QC): 5 (not met) Transfers (B,C,W/C) (FIM): 5 (not met) Toilet/Commode Transfer(FIM): 5 (not met) Toilet/Commode Transfer (QC): 5 (not met) Shower Transfer(FIM): 4 (not met) Additional Goals: 1-Demonstrate ADL Tasks, 2-Verbalize Understanding, 3- ImproveStrength/Alicia 1=Demonstrate adherence to instructed precautions during ADL tasks. 2=Patient will verbalize/demonstrate understanding of assistive devices/ modifications for ADL. 3=Patient will improve strength/tolerance for activity to enable patient to perform ADL's. Speech Loading And Unloading Supervisor Goals Custodial Goals 1. The patient will demonstrate the least restrictive diet without signs/ symptoms of aspiration or laryngeal penetration. MET 2. The patient will demonstrate improved functional memory and use of memory strategies for increased function and safety at home. PROGRESSING Time Frame: Three Weeks LIGIA CERRATO OT Mar 09, 2017 11:04
--- NOTE | 2017-03-09 11:05 | Therapy Team Discharge Summary ---
Therapy Discharge Summary Discharge Recommendations Date of Discharge Therapy D/C Recommendations: 24 hr Supervision, Home w/ Family Support Occupational Therapy Decreased Activ Tolerance, Dependent Transfers, Impaired Cognition, Impaired I ADL's, Impaired Self-Care Skills Speech-Language Pathology The patient was recently admitted to [facility] following a diagnosis of glioblastoma with recent craniotomy. Upon admission, the patient displayed difficulty with cognitive processes (problem solving and memory), as well as, swallowing (the patient was admitted on a nectar-thick liquid diet). The patient 's skilled speech pathology focused on memory strategies for home, as well as, oropharyngeal strengthening exercises. The patient completed a video swallow throughout her stay which did not demonstrate aspiration, therefore, the patient was placed on a regular diet with nectar-thick liquid consistencies. The patient displays excellent demonstration of dysphagia exercises and is able to recall functional memory strategies for use at home. The patient met memory and expression goals throughout her stay. The patient will discharge home at this time. Home speech pathology services are not warranted. PT Penitentiary Goals Meat Wrapper Goals PT Penitentiary Goals Time Frame: Mar 11, 2017 Transfers (B,C,W/C) (FIM): 4 (unmet, scored a 3) Roll Left to Right (QC): 4 Sit to Lying (QC): 4 Lying-Sitting on Side/Bed(QC): 4 Sit to Stand (QC): 3 Chair/Ylc-cq-Vsopp Xfer(QC): 3 Car Transfer (QC): 3 Does the Patient Walk: No and Walking Goal IS indicated Gait (FIM): 1 (met) Distance: 20' Walk 10 feet (QC): 3 Gait Level of Assist: 4 Gait Assistive Device: FWW Does the Pt use WC or Scooter?: Yes Wheelchair (FIM): 4 (et) Distance: 150' Wheelchair Level of Assist: 4 Wheel 50 feet with 2 turns (QC: 3 Stairs (FIM): 1 (met) # of Steps: 1 1 Step (curb) (QC): 3 4 Steps (QC): 88 12 Steps (QC): 88 Stairs Level Of Assist: 4 Picking up an Object (QC): 88 OT Meat Wrapper Goals Penitentiary Goals Time Frame: Mar 18, 2017 Eating (FIM): 6 Eating (QC): 6 Oral Hygiene (QC): 5 Grooming(FIM): 5 Bathing(FIM): 4 Shower/Bathe Self (QC): 4 Upper Body Dressing(FIM): 5 Upper Body Dressing (QC): 5 Lower Body Dressing(FIM): 5 Lower Body Dressing (QC): 5 On/Off Footwear (QC): 5 Toileting(FIM): 5 Toileting Hygiene (QC): 5 Transfers (B,C,W/C) (FIM): 5 Toilet/Commode Transfer(FIM): 5 Toilet/Commode Transfer (QC): 5 Shower Transfer(FIM): 4 Additional Goals: 1-Demonstrate ADL Tasks, 2-Verbalize Understanding, 3- ImproveStrength/Alciia 1=Demonstrate adherence to instructed precautions during ADL tasks. 2=Patient will verbalize/demonstrate understanding of assistive devices/ modifications for ADL. 3=Patient will improve strength/tolerance for activity to enable patient to perform ADL's. Speech Penitentiary Goals Meat Wrapper Goals 1. The patient will demonstrate the least restrictive diet without signs/ symptoms of aspiration or laryngeal penetration. MET 2. The patient will demonstrate improved functional memory and use of memory strategies for increased function and safety at home. PROGRESSING Time Frame: Three Weeks Comprehension: 5 (NOT MET) Expression: 5 (NOT MET) Social Interaction: 5 (NOT MET) Problem Solvin (MET) Memory: 3 (MET) ALTAF AGUILA Mar 09, 2017 11:05
[2017-03-09 14:23] VITALS: BP 111/74
--- NOTE | 2017-03-09 19:29 | PM & R (SOAP) Progress Note ---
Subjective Time Seen by Provider: 12:00 Subjective/Events-last exam Patient discharged to home with spouse To have f/u RT this afternoon with DR Cantu Radiation oncology Objective Exam Last Set of Vital Signs Vital Signs Date Time Temp Pulse Resp B/P (MAP) Pulse Ox O2 Delivery O2 Flow Rate FiO2 03/09/17 14:23 67 18 111/74 97 Room Air 03/09/17 04:43 98.2 Capillary Refill : I&O Intake and Output 03/09/17 00:00 Intake Total 1528 ml Balance 1528 ml Intake Oral 1528 ml # Voids 6 # Bowel Movements 1 General: Alert, Oriented X3, Cooperative, No Acute Distress HEENT: PERRLA, EOMI, Mucous Memb Moist/[place], Other (crani site with sutures inplace healing well) Neck: Supple, No JVD Lungs: Clear to Auscultation Heart: Regular Rate Abdomen: Normal Bowel Sounds, Soft, No Tenderness, Other (Peg in place) Extremities: No Edema Neuro: Other (weakness left > rt) Assessment/Plan Assessment s/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
== END 2017-03-09 14:29 | disposition home health service (06) | DRG 55 ==
LOC: EDSEX
PROVIDERS: ADMIT Physical Medicine & Rehabilitation; ATTEND Physical Medicine & Rehabilitation
DX: C71.2 Malignant neoplasm of temporal lobe (principal); G81.94 Hemiplegia, unspecified affecting left nondominant side; R13.10 Dysphagia, unspecified; R47.01 Aphasia; I10 Essential (primary) hypertension; E78.5 Hyperlipidemia, unspecified; K21.9 Gastro-esophageal reflux disease without esophagitis; K59.09 Other constipation; E53.8 Deficiency of other specified B group vitamins; E55.9 Vitamin D deficiency, unspecified; Z79.01 Long term (current) use of anticoagulants; Z23 Encounter for immunization
CPT/HCPCS: 36415; 73560; 74230; 77300; 77301; 77338; 80053; 85025; 99214

== ENCOUNTER 2017-04-22 13:44 | Outpatient (RCR) | payer BC, OTHER ==
--- NOTE | 2017-02-20 09:23 | Progress Note-Standard ---
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 Umu states Pt and her family are wanting to know when they will see Dr. Jeffery. Called and spoke with Dr. Elmore nurse practitioner Maria R Arroyo to see what their plan for tx was. Medical records received discussed possibly starting Pt on a clinical trial, Randomized Phase 3 Open Label Study of Nivolumab vs Temozolomide. According to Maria R, they are waiting for further results before determining whether or not Pt qualifies for the trial. Maria R states Pt is scheduled to see Dr. Elmore 03/04/18 to discuss tx plan. Recommended that we see Pt and do tx planning so we will be ready to start when they are ready with chemo. Went upstairs and spoke with Pt' s "Ori" (Pt was sleeping peacefully and Pt's did not want to wake her) about tx plan and side-effects. Told Ori that they would meet Dr. Jeffery next week and we would schedule tx planning to have plan ready for concurrent tx with [facility]. 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
--- NOTE | 2017-02-25 15:31 | Consultation ---
History of Present Illness History of Present Illness Patient Consulted On(jamar/time) 02/25/17 1330 Radiation Oncology Consult Date Seen by Provider: Feb 25, 2017 Time Seen by Provider: 13:30 Reason for Visit: Glioblastoma Multiforme, left temporal lobe, WHO Grade IV wild type History of Present Illness *61 y/o white female [place], [place] resident who reported in good health until October 2016. Per , she began having dizziness, confusion, unsteady gait and multiple falls from over the past few months. While attending a work conference on 11/28/16she became confused and weak. She was taken to a local hospital where a work up was performed and she was diagnosed with viral encephalitis. She was discharged to inpatient rehab. *01/29/17 she had a fall. CT head revealed left temporal lobe edema with midline shift. She was then transferred to [facility]. On admission she had right facial droop, right side hemiparesis, and difficulty finding words. *01/30/17 MRI head found centrally necrotic enhancing areas of FLAIR hyperintensity within the left temporal lobe, right insula and superior temporal lobe, bilateral drake radiata, and splenium of the corpus callosum, some of which demonstrated reduced diffusion suggesting cellular tumor. *01/30/17 CT C/A/P: Mixed solid and groundglass 0.9 cm FAROOQ pulmonary nodule. Unlikely representing a primary neoplasm. No abdominal or pelvic mass or lymphadenopathy. *02/03/17 Craniotomy with resection of the left temporal mass performed. - Glioblastoma, IDH1-[id number] Wild Type, WHO GRADE IV - Ki-67/MIB-1 proliferation index ranges from 5-25% - GFAP: diffuse expression - p53: negative -IDH1: negative *02/04/17 Post-op MRI found interval left temporal craniotomy and tumor debulking with residual linear enhancing tumor rind at the deep left temporal operative margin. *02/04/[address] Suarez. *02/11/17 MRI head for xrt planning: Left temporal lobe residual tumor/ postoperative blood products stable from February 04. *The patient/ wished to receive continuation of neurosurgery care at . *Due to out-of network insurance, it was recommended she pursue radiotherapy through a local in-network facility. *02/17/17 The patient was discharged from to [facility] for continued inpatient rehabilitation. She remains inpatient at this time. *A radiation oncology referral was made for evaluation and consideration of post -surgical partial brain radiotherapy; thus my visit with the patient today. Allergies and Home Medications Allergies Coded Allergies: morphine (Verified Allergy, Unknown, 02/17/17) Home Medications Acetaminophen 325 Mg Tablet, 650 MG PO Q4H PRN for PAIN-MILD, (Reported) TAKES 2 (325MG) TABLETS Amlodipine Besylate 5 Mg Tablet, 5 MG PO DAILY, (Reported) Atenolol 50 Mg Tablet, 50 MG PO DAILY, (Reported) Atorvastatin Calcium 80 Mg Tablet, 80 MG PO DAILY, (Reported) Cyanocobalamin (Vitamin B-12) 5,000 Mcg Tab.subl, 5,000 MCG SL DAILY, (Reported) Ergocalciferol (Vitamin D2) 50,000 Unit Capsule, 50,000 UNITS PO WEEK, (Reported ) Pantoprazole Sodium 40 Mg Tablet.dr, 40 MG PO DAILY, (Reported) Ranitidine HCl 150 Mg Tablet, 150 MG PO BID, (Reported) Past Hfzohes-Nqvdtv-Mbfros Hx Patient Social History Alcohol Use: Denies Use Alcohol Beverage of Choice: Other Recreational Drug Use: No Smoking Status: Never a Smoker Recent Foreign Travel: No Contact w/Someone Who Travel: No Immunizations Up To Date Date of Influenza Vaccine: Feb 21, 2017 Surgeries History of Surgeries: Yes (Craniotomy for tumor resection on 02/03/17; PEG tube placement on 02/13/17.) Surgeries: Hysterectomy Respiratory History of Respiratory Disorde: No Cardiovascular History of Cardiac Disorders: Yes Cardiac Disorders: High Cholesterol, Hypertension Gastrointestinal History of Gastrointestinal Di: Yes (PEG tube placement 02/13.) Gastrointestinal Disorders: Gastroesophageal Reflux, Chronic Constipation Cancer History of Cancer: Yes (Glioblastoma) Review of Systems-General Constitutional: weakness (generalized), other (night sweats) EENTM: other (wears glasses) Respiratory: no symptoms reported Cardiovascular: no symptoms reported Gastrointestinal: other (Has had problems with swallowing. This is improving. Has PEG tube in place for nutrition and hydration.) Genitourinary: no symptoms reported : No Musculoskeletal: no symptoms reported (Able to move all extremities.) Skin: no symptoms reported Psychiatric/Neurological: Headache, Weakness, Other (Continued memory loss.) Physical Exam-General Problems Physical Exam Vital Signs Capillary Refill : General Appearance: WD/WN, no apparent distress, other (accompanied by ; in wheelchair) Eyes: Bilateral Eye Normal Inspection HEENT: PERRL/EOMI, normal ENT inspection, other (well healed horseshoe incision left temporal area; no signs of infection) Neck: full range of motion Respiratory: no respiratory distress Extremities: normal range of motion, no pedal edema Neurologic/Psychiatric: 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 Elmore, for follow up at [facility] on 03/04/17 to determine chemotherapy / possible clinical trial. 2)Following NCCN Guidelines the patient was offered a 6 week course of partial brain radiotherapy utilizing an IMRT treatment technique. 3)We would attempt to deliver 60 Gy / 30 fxs to the site of resection. 4)The acute toxicities, intermediate project manager complications, logistics and hoped for benefits of treatment were explained to the patient and . 6) Possible toxicities and complications include but are not limited to: fatigue , scalp irritation, patchy hair loss, cerebral edema, worsening of pre-existing deficits, radiation somnolence, and cognitive impairment. 7) They are in agreement to proceed with radiation once we have a definite plan from her medical oncologist. 8)A treatment planning ct simulation with IV contrast has been scheduled for Thursday02/27/17 so that we may have her planning completed and ready to go in a timely fashion. MIGUEL DILL MD Feb 25, 2017 15:31
[~2017-04-22 13:44] MED LIST: ACET325T38 PO; AMLO5TAB2 PO; ATEN50TA PO; ATOR80TA76 PO; CYAN5000 SL; DEXA4TAB PO; ERGO50006 PO; LEVE10006 PO; PANT40TA3 PO; RANI150T11 PO
== END 2017-04-22 15:11 | disposition home or self-care (01) ==
LOC: EDSEX → ONC 13:44
PROVIDERS: ATTEND Radiology Radiation Oncology
DX: Z51.0 Encounter for antineoplastic radiation therapy (principal); C71.2 Malignant neoplasm of temporal lobe
CPT/HCPCS: 77300; 77301; 77336; 77338; 77386; 99213

== ENCOUNTER 2017-04-24 09:20 | Outpatient (RCR) | payer BC ==
[2017-04-24 11:31] LABS: BASOPHILS % (AUTO) 0 % (0-10); EOSINOPHILS % (AUTO) 0 % (0-10); HEMATOCRIT 41 % (35-52); HEMOGLOBIN 14.6 G/DL (11.5-16.0); LYMPHOCYTES # (AUTO) 0.8 X 10^3 (1.0-4.0); LYMPHOCYTES % (AUTO) 8 % (12-44); MEAN CORPUSCULAR HEMOGLOBIN 33 PG (25-34); MEAN CORPUSCULAR HGB CONC 35 G/DL (32-36); MEAN CORPUSCULAR VOLUME 93 FL (80-99); MEAN PLATELET VOLUME 8.7 FL (7.4-10.4); MONOCYTES # (AUTO) 0.6 X 10^3 (0.0-1.0); MONOCYTES % (AUTO) 7 % (0-12); NEUTROPHILS % (AUTO) 85 % (42-75); PLATELET COUNT 271 10^3/uL (130-400); RED BLOOD COUNT 4.44 10^6/uL (4.35-5.85); RED CELL DISTRIBUTION WIDTH 14.8 % (10.0-14.5); WHITE BLOOD COUNT 9.4 10^3/uL (4.3-11.0)
[2017-04-24 11:47] LABS: ALANINE AMINOTRANSFERASE 71 U/L (0-55); ALBUMIN 3.8 GM/DL (3.2-4.5); ALKALINE PHOSPHATASE 59 U/L (40-136); BILIRUBIN,TOTAL 1.9 MG/DL (0.1-1.0); BUN/CREATININE RATIO 57; CARBON DIOXIDE 20 MMOL/L (21-32); CHLORIDE 102 MMOL/L (98-107); CREATININE SERUM 0.51 MG/DL (0.60-1.30); GFR ESTIMATED > 60; GLUCOSE 162 MG/DL (70-105); POTASSIUM 3.8 MMOL/L (3.6-5.0); SODIUM 135 MMOL/L (135-145); TOTAL PROTEIN 6.3 GM/DL (6.4-8.2)
== END 2017-07-23 | disposition home or self-care (01) ==
LOC: ONC 09:20
PROVIDERS: ATTEND Internal Medicine Hematology & Oncology
DX: C71.2 Malignant neoplasm of temporal lobe (principal); I10 Essential (primary) hypertension; E78.5 Hyperlipidemia, unspecified; K21.9 Gastro-esophageal reflux disease without esophagitis; Z79.899 Other long term (current) drug therapy
CPT/HCPCS: 36415; 80053; 85025; 99214

== ENCOUNTER → 2017-04-27 | Outpatient (CLI) | payer BC ==
[~2017-04-27] MED LIST changes: +GADOBUTROL 7.5 MMOL/7.5 ML (GADAVIST) VIAL IV ONE
--- NOTE | 2017-04-27 14:28 | Diagnostic Imaging Report ---
PROCEDURE: MR imaging of the brain with and without contrast. TECHNIQUE: Multiplanar, multisequence MR imaging of the brain was performed with and without contrast. This exam is less than optimal due to motion artifact secondary to coughing. INDICATION: Glioblastoma FINDINGS: The previous MRI of the brain exam, performed at the [facility] in [place], [place] on 02/11/2017 and 02/04/2017, noted an area of heterogeneous enhancement in the left temporal lobe. By my measurements, this area measured 2.0 x 3.1 x 3.9 cm in maximum longitudinal, transverse and AP diameters. There was considerable associated vasogenic edema and approximately 4 mm shift of midline to the right. On this exam the area of abnormal enhancement is in the left temporal region. There are also postsurgical changes consistent with the left craniotomy. By history, the patient has a diagnosis of glioblastoma. On the postcontrast series of this exam, there are actually several small rim-enhancing lesions and a larger in the left temporal region. These areas of abnormal enhancement have a conglomerate size of 2.2 x 2.2 x 2.7 cm. In addition to the reduction of the size of the area of abnormal enhancement in the left lobe, there is much less associated vasogenic edema than seen on the prior exam. There is no shift of midline at this time. There is still diffuse areas of increased signal throughout the periventricular white matter bilaterally on the FLAIR series. These findings are nonspecific. The ventricles themselves are stable in size. There is no abnormal signal arising from the brain on the diffusion series to indicate an area of acute ischemia. The sella is not enlarged and the expected carotid flow voids are evident bilaterally. The orbits are symmetrical and within normal limits. The sinuses are generally clear. The 7th and 8th nerve complexes are unremarkable. Impression: 1. The appearance of the brain has improved in the interval since the prior exam as the area of abnormal enhancement in the left temporal region has decreased in size. There is also much less associated vasogenic edema than noted on the prior exam and there is no shift of midline at this time. 2. There is no acute intracranial abnormality noted. Dictated by: Dictated on workstation # [id number]
== END ==
LOC: RAD 12:10
PROVIDERS: ATTEND Internal Medicine Hematology & Oncology
DX: C71.9 Malignant neoplasm of brain, unspecified (principal)
CPT/HCPCS: 70553